=== PATIENT | male | born 1985 | race African-American/Black ===

== ENCOUNTER 2023-06-19 23:04 | Emergency (ER) | payer OTHER, SELFPAY ==
[2023-06-19 23:05] VITALS: BP 156/90; PULSE 99; RESP 16; TEMP 37.1; O2SAT 99; BMI 43.3
--- NOTE | 2023-06-20 00:20 | EX.ED.VIS.UR ---
HPI HPI - URI History of Present Illness Chief Complaint: Cold Sx Informant: patient Associated Symptoms Associated Symptoms: Positive for Nasal Congestion, Headache, Nausea, Diarrhea and Nonproductive cough Narrative Narrative: 3 days is of fevers, chills, malaise, myalgias, headache, congestion, cough, with a positive COVID test at home. No charles dyspnea. Never been vaccinated, first time he has had COVID that he knows of. Lives at home with family. Healthy otherwise. Takes no prescription medications. ROS ROS ED Constitutional Constitutional ED: Reports body ache(s), chills, fatigue, fever(s), headache(s) and malaise Eyes Eyes: Denies change in vision or diplopia ENT ENT ED: Denies rhinorrhea or sore throat Cardiovascular Cardiovascular: Denies chest pain or palpitations Respiratory/Chest Respiratory/Chest: Reports cough; Denies dyspnea or dyspnea on exertion Gastrointestinal Gastrointestinal: Reports diarrhea and nausea; Denies abdominal pain or vomiting Genitourinary Genitourinary ED: Denies dysuria or hematuria Musculoskeletal Musculoskeletal: Denies back pain or neck pain Integumentary Denies abscess or rash Neurologic Neurologic: Reports headache(s); Denies paresthesias or weakness Psychiatric Psychiatric: Denies anxiety or suicidal thoughts PFSH PFS Medical History Chronic neck and back pain Fatigue Knee pain Limb weakness Lumbar strain Right shoulder strain Shortness of breath Shoulder pain Strain of right trapezius muscle Home Medications nirmatrelvir 300 mg (150 mg x2)-ritonavir 100 mg tablet,dose pack (Paxlovid) See Rx Instructions PO .COMPLEX #30 tabs 06/20/23 [Rx Last Taken Unknown] Allergy/AdvReac Type Severity Reaction Status Date / Time Penicillins Allergy Mild Swelling Verified 06/19/23 23:08 Surgical History H/O knee surgery Social History Smoking Status: Current every day smoker tobacco type: cigarettes alcohol intake: never EXAM Physical Exam Const Vital Signs: 06/19/23 23:05 06/19/23 23:27 Temperature 98.8 F Temperature Source Temporal Pulse Rate 99 Respiratory Rate 16 Respiratory Effort Short of Breath Respiratory Pattern Normal Blood Pressure 156/90 H Blood Pressure Mean 112 Pulse Ox 99 Oxygen Delivery Method Room Air Positive well nourished, well developed and obese Constitutional Narrative: Well-appearing, no distress General Appearance ED: well developed and NAD Nutritional Appearance: obese HEENT Reports moist mucous membranes normocephalic and atraumatic Eyes PERRL and EOMs intact bilaterally Neck full ROM and supple Resp normal respiratory effort and clear to auscultation bilaterally Cardio regular rate, regular rhythm and no murmurs Rate: Negative for tachycardic GI non-tender and non-distended Auscultation: normoactive bowel sounds Palpation: soft Back/Spine no CVA tenderness General Back: other FROM Extremity normal to inspection and no calf tenderness General Extremety ED: Negative for edema, pulses abnormal or tenderness General Extremity: Negative for edema or pulses abnormal Neuro oriented x3, CN's II-XII intact bilaterally and no sensory deficits noted Sensorium / Orientation: awake and alert Motor Exam: strength 5/5 throughout Skin no rashes or lesions noted and no wounds MDM MDM MDM Narrative Medical decision making narrative: Unvaccinated obese patient, qualifies for antivirals due to the latter. He is amenable to this. Pulse ox and other vital signs are unremarkable at this time. Discharge Plan Triage Chief Complaint: Cold Sx ED Provider: Avinash Olmos Dx/Rx/DC Orders Clinical Impression: COVID-19 Instructions: Coronavirus Disease 2019 (COVID-19): Caring for Yourself or Others Prescriptions: New Paxlovid 300 mg (150 mg x 2)-100 mg tablets,dose pack See Rx Instructions .ROUTE .COMPLEX Qty: 30 0RF Rx Instructions: take TWO 150 mg tablets of nirmatrelvir with ONE 100 mg tablet of ritonavir twice daily for 5 days Primary Care Provider: NOT,DEFINED Referrals: Doctor,Your [Non-Staff] - As Needed Activity Restrictions/Additional Instructions: Try to get a home portable pulse oximeter and closely watch your oxygen levels periodically. If you stay below 90% for more than a minute or so, and/or you are feeling like your breathing is getting worse, return to the emergency department for further evaluation. Currently, CDC recommendations state that you should stay home through day 5 of symptoms, then as long as symptoms are improving, if you need to go to work or somewhere else you may for days 6-10 as long as you are wearing a mask the entire time. If you are feeling better after day 10 you may resume life is normal. Disposition Disposition: Home, Self Care
== END 2023-06-20 01:04 | disposition home or self-care (01) ==
LOC: ED 06-20 00:26
PROVIDERS: Emergency Provider Emergency Medicine; Visit Provider Emergency Medicine
DX: U07.1 COVID-19 (principal); F17.210 Nicotine dependence, cigarettes, uncomplicated
CPT/HCPCS: 87811; 99282

== ENCOUNTER 2023-10-21 19:14 | Emergency (ER) | payer OTHER, SELFPAY ==
[2023-10-21 19:15] VITALS: BP 192/99; PULSE 85; RESP 16; TEMP 36.4; O2SAT 99; BMI 43.9
--- OUTSIDE RECORDS SUMMARY | 2023-10-21 20:41 | XMS RPT_ITS | CCD ---
Author Name Unknown Address [address] [place] [address] Organization [facility] Care Team Providers Care Marketing Automation Analyst Name Role Phone PHYSICIAN, NONE Primary Care Physician Unavailab WOO Beth DO Attending Unavailable PHYSICIAN, NONE Primary Care Unavailable Allergies Allergy Classification Reported Allergen(s) Allergy Type Date of Onset Reaction(s) Facility (1 source) Penicillin; Translations: [penicillin] Drug Allergy [facility] Medications Current Medications Medication Drug Class(es) Dates Sig (Normalized) Sig (Original) cyclobenzaprine hydrochloride 10 mg oral tablet (1 source) Muscle Relaxant Start: 03-18-2023 End: 03-25-2023 cyclobenzaprine 10 mg oral tablet Dose : 10 mg = 1 tab(s), Oral, TID, X 7 day(s), # 21 tab(s), 0 Refill(s), 03/25/23 14:04:00 EDT Start Date: 03/18/23 Stop Date: 03/25/23 Status: Ordered Vital Signs Date Time Vital Sign Value Performing Clinician Jodi hall 03-18-2023 13:38-0400 Body height 198.1 cm OWO SVXR [facility] 03-18-2023 13:38-0400 Body temperature 98.06 [degF] WOO SVXR [facility] 03-18-2023 13:38-0400 Body weight 180.5 kg WOO SVXR [facility] 03-18-2023 13:38-0400 Diastolic Blood Pressure Non-Invasive 90 1 WOO SVXR [facility] 03-18-2023 13:38-0400 Heart rate 92 /min WOO WARNER DO [facility] 03-18-2023 13:38-0400 Respiratory rate 18 /min WOO WARNER DO [facility] 03-18-2023 13:38-0400 Systolic Blood Pressure Non-Invasive 151 1 WOO WARNER DO [facility] Encounters Encounter Date Encounter Type Care Provider Facility Start: 03-18-2023 End: 03-18-2023 Emergency department patient visit WOO WARNER DO Facility:B Start: 03-18-2023 End: 03-18-2023 Emergency department patient visit WOO WARNER DO [facility] Payers Date Payer Category Payer Unknown [id number] 1985 Unknown [id number] Social History Date Type Detail Facility Tobacco smoking status No Smoking Status Entered [facility] Sex Assigned At Male [facility] Functional Status Date Assessment Result Facility 03-18-2023 Functional Status Safety level maintained [facility] Mental Status Date Assessment Result Facility 03-18-2023 Mental Status Oriented x 4 [facility] Discharge instructions 03-18-2023 Note Date & Type Note Facility 03-18-2023 Hospital Discharg e instructions Patient Education 03/18/2023 14:04:03 Back and Neck Pain, General General Neck and Back Pain Both neck and back pain are usually caused by injury to the muscles or ligaments of the spine. Sometimes the disks that separate each bone of the spine may cause pain by pressing on a nearby nerve. Back and neck pain may appear after a sudden twisting or bending force (such as in a car accident), or sometimes after a simple awkward movement. In either case, muscle spasm is often present and adds to the pain. Acute neck and back pain usually gets better in 1 to 2 weeks. Pain related to disk disease, arthritis in the spinal joints or spinal stenosis (narrowing of the spinal canal) can become chronic and last for months or years. Back and neck pain are common problems. Most people feel better in 1 or 2 weeks, and most of the rest in 1 to 2 months. Most people can remain active. People have and describe pain differently. Pain can be sharp, stabbing, shooting, aching, cramping, or burning Movement, standing, bending, lifting, sitting, or walking may worsen the pain Pain can be localized to one spot or area, or it can be more generalized Pain can spread or radiate upwards, downwards, to the front, or go down your arms Muscle spasm may occur. Most of the time mechanical problems with the muscles or spine cause the pain. it is usually caused by an injury, whether known or not, to the muscles or ligaments. While illnesses can cause back pain, it is usually not caused by a serious illness. Pain is usually related to physical activity, whether sports, exercise, work, or normal activity. Sometimes it can occur without an identifiable cause. This can happen simply by stretching or moving wrong, without noting pain at the time. Other causes include: Overexertion, lifting, pushing, pulling incorrectly or too aggressively. Sudden twisting, bending or stretching from an accident (car or fall), or accidental movement. Poor posture Poor conditioning, lack of regular exercise Spinal disc disease or arthritis Stress , or illness like appendicitis, bladder or kidney infection, pelvic infections Home care For neck pain: Use a comfortable pillow that supports the head and keeps the spine in a neutral position. The position of the head should not be tilted forward or backward. When in bed, try to find a position of comfort. A firm mattress is best. Try lying flat on your back with pillows under your knees. You can also try lying on your side with your knees bent up towards your chest and a pillow between your knees. At first, do not try to stretch out the sore spots. If there is a strain, it is not like the good soreness you get after exercising without an injury. In this case, stretching may make it worse. Don't sit for long periods, as in long car rides or other travel. This puts more stress on the lower back than standing or walking. During the first 24 to 72 hours after an injury, apply an ice pack to the painful area for 20 minutes and then remove it for 20 minutes over a period of 60 to 90 minutes or several times a day. You can alternate ice and heat therapies. Talk with your healthcare provider about the best treatment for your back or neck pain. As a safety precaution, do not use a heating pad at bedtime. Sleeping with a heating pad can lead to skin ellington or tissue damage. Therapeutic massage can help relax the back and neck muscles without stretching them. Be aware of safe lifting methods and do not lift anything over 15 pounds until all the pain is gone. Medicines Talk to your healthcare provider before using medicine, especially if you have other medical problems or are taking other medicines. You may use gyfg-lnr-kcahqda medicine to control pain, unless another pain medicine was prescribed. If you have chronic conditions like diabetes, liver or kidney disease, stomach ulcers, gastrointestinal bleeding, or are taking blood thinner medicines. Be careful if you are given pain medicines, narcotics, or medicine for muscle spasm. They can cause drowsiness, and can affect your coordination, reflexes, and judgment. Do not drive or operate heavy machinery. Follow-up care Follow up with your healthcare provider, or as advised. Physical therapy or further tests may be needed. If X-rays were taken, you will be notified of any new findings that may affect your care. Call 911 Call 911 if any of the following occur: Trouble breathing Confusion Very drowsy or trouble awakening Fainting or loss of consciousness Rapid or very slow heart rate Loss of bowel or bladder control When to seek medical advice Call your healthcare provider right away if any of these occur: Pain becomes worse or spreads into your arms or legs Weakness, numbness or pain in one or both arms or legs Numbness in the groin area Difficulty walking Fever of 100.4 F (38 C) or higher, or as directed by your healthcare provider [phone] [employer]. [address] [place] [address]. All rights reserved. This information is not intended as a substitute for professional medical care. Always follow your healthcare professional's instructions. 03/18/2023 14:04:02 Back Care Tips Back Care Tips Caring for your back These are things you can do to prevent a recurrence of acute back pain and to reduce symptoms from chronic back pain: Maintain a healthy weight. If you are overweight, losing weight will help most types of back pain. Exercise is an important part of recovery from most types of back pain. The muscles behind and in front of the spine support the back. This means strengthening both the back muscles and the abdominal muscles will provide better support for your spine. Swimming and brisk walking are good overall exercises to improve your fitness level. Practice safe lifting methods (below). Practice good posture when sitting, standing and walking. Avoid prolonged sitting. This puts more stress on the lower back than standing or walking. Wear quality shoes with sufficient arch support. Foot and ankle alignment can affect back symptoms. Women should avoid wearing high heels. Therapeutic massage can help relax the back muscles without stretching them. During the first 24 to 72 hours after an acute injury or flare-up of chronic back pain, apply an ice pack to the painful area for 20 minutes and then remove it for 20 minutes, over a period of 60 to 90 minutes, or several times a day. As a safety precaution, do not use a heating pad at bedtime. Sleeping on a heating pad can lead to skin ellington or tissue damage. You can alternate ice and heat therapies. Medicines Talk to your healthcare provider before using medicines, especially if you have other medical problems or are taking other medicines. You may use acetaminophen or ibuprofen to control pain, unless your healthcare provider prescribed other pain medicine. If you have chronic conditions like diabetes, liver or kidney disease, stomach ulcers, or gastrointestinal bleeding, or are taking blood thinners, talk with your healthcare provider before taking any medicines. Be careful if you are given prescription pain medicines, narcotics, or medicine for muscle spasm. They can cause drowsiness, affect your coordination, reflexes, and judgment. Do not drive or operate heavy machinery while taking these types of medicines. Take prescription pain medicine only as prescribed by your healthcare provider. Lumbar stretch Here is a simple stretching exercise that will help relax muscle spasm and keep your back more limber. If exercise makes your back pain worse, don t do it. Lie on your back with your knees bent and both feet on the ground. Slowly raise your left knee to your chest as you flatten your lower back against the floor. Hold for 5 seconds. Relax and repeat the exercise with your right knee. Do 10 of these exercises for each leg. Safe lifting method Don t bend over at the waist to lift an object off the floor. Instead, bend your knees and hips in a squat. Keep your back and head upright Hold the object close to your body, directly in front of you. Straighten your legs to lift the object. Lower the object to the floor in the reverse fashion. If you must slide something across the floor, push it. Posture tips Sitting Sit in chairs with straight backs or low-back support. Keep your knees lower than your hips, with your feet flat on the floor. When driving, sit up straight. Adjust the seat forward so you are not leaning toward the steering wheel. A small pillow or rolled towel behind your lower back may help if you are driving long distances. Standing When standing for long periods, shift most of your weight to one leg at a time. Alternate legs every few minutes. Sleeping The best way to sleep is on your side with your knees bent. Put a low pillow under your head to support your neck in a neutral spine position. Avoid thick pillows that bend your neck to one side. Put a pillow between your legs to further relax your lower back. If you sleep on your back, put pillows under your knees to support your legs in a slightly flexed position. Use a firm mattress. If your mattress sags, replace it, or use a 1/2-inch plywood board under the mattress to add support. Follow-up care Follow up with your healthcare provider, or as advised. If X-rays, a CT scan or an MRI scan were taken, they will be reviewed by a radiologist. You will be notified of any new findings that may affect your care. Call 911 Call 911 if any of the following occur: Trouble breathing Confusion Very drowsy Fainting or loss of consciousness Rapid or very slow heart rate Loss of bowel or bladder control When to seek medical advice Call your healthcare provider right away if any of the following occur: Pain becomes worse or spreads to your arms or legs Weakness or numbness in one or both arms or legs Numbness in the groin area [phone] [employer]. [address] [place] [address], [place] [address]. All rights reserved. This information is not intended as a substitute for professional medical care. Always follow your healthcare professional's instructions. Follow Up Care 03/18/2023 13:36:33 With:Call Physician Referral Address:Unknown When:2-4 days [facility] Mateuscla[facility] Patel Clinical Note 03-18-2023 Note Date & Type Note Facility 03-18-2023 Note Discharge Instructions Thank you for allowing [facility] to assist you with your healthcare needs. The following is important discharge information regarding your hospital visit. Diagnosis from Today's Visit Back pain Shoulder pain-swelling right What to Do Next Instructions from Your Care Team Follow-up with your PCP in the next 2 to 4 days. You have been prescribed Flexeril today. Do not operate any heavy machinery while under the influence of this medication. Please return to the emergency department if you start having worsening back pain or shoulder pain. Please return to the emergency department if you experience a traumatic injury. Please return to the emergency department if you start experiencing high fevers. Discharge Return to Work, School, or Sports (Return to Work, School, or Sports) - Ordered -- 03/20/23, May return to: work, 03/18/23 14:04:00 EDT Post Acute Orders No qualifying data available. You Need to Schedule the Following Appointments Follow Up with Call Physician Referral When Within 2-4 days Allergies penicillin Medications Please ask your primary doctor or pharmacist before taking any other medication not listed, including over the counter drugs, herbal medications, vitamins and or supplements as they may interact with your home medications. What How Much When Instructions Last Dose New cyclobenzaprine (cyclobenzaprine 10 mg oral tablet) 1 tab(s) by mouth Three (3) times a day Duration: 7 Days Printed Prescription Please take this list to your next doctor s visit. Bring all medications you take, including over the counter medications, herbals and other supplements with you to your doctor s visit. Patients and families are reminded to discard old lists and to update any records with all medication providers or retail pharmacies. Medication Leaflets cyclobenzaprine (aamir garnett) Amrix, Comfort Pac with Cyclobenzaprine, Fexmid What is the most important information I should know about cyclobenzaprine? You should not use cyclobenzaprine if you have a thyroid disorder, heart block, congestive heart failure, a heart rhythm disorder, or you have recently had a heart attack. Do not use cyclobenzaprine if you have taken an MAO inhibitor in the past 14 days, such as isocarboxazid, linezolid, phenelzine, rasagiline, selegiline, or tranylcypromine. What is cyclobenzaprine? Cyclobenzaprine is a muscle relaxant. It works by blocking nerve impulses (or pain sensations) that are sent to your brain. Cyclobenzaprine is used together with rest and physical therapy to relieve muscle spasms caused by painful conditions such as an injury. Cyclobenzaprine may also be used for purposes not listed in this medication guide. What should I discuss with my healthcare provider before taking cyclobenzaprine? You should not use cyclobenzaprine if you are allergic to it, or if you have: a thyroid disorder; heart block, heart rhythm disorder, congestive heart failure; or if you have recently had a heart attack. Cyclobenzaprine is not approved for use by anyone younger than 15 years old. Do not use cyclobenzaprine if you have taken an MAO inhibitor in the past 14 days. A dangerous drug interaction could occur. MAO inhibitors include isocarboxazid, linezolid, phenelzine, rasagiline, selegiline, and tranylcypromine. Some medicines can interact with cyclobenzaprine and cause a serious condition called serotonin syndrome. Be sure your doctor knows if you also take stimulant medicine, opioid medicine, herbal products, or medicine for depression, mental illness, Parkinson's disease, migraine headaches, serious infections, or prevention of nausea and vomiting. Ask your doctor before making any changes in how or when you take your medications. Tell your doctor if you have ever had: liver disease; glaucoma; enlarged prostate; or problems with urination. It is not known whether this medicine will harm an unborn baby. Tell your doctor if you are or plan to become . It may not be safe to breast-feed while using this medicine. Ask your doctor about any risk. Older adults may be more sensitive to the effects of this medicine. How should I take cyclobenzaprine? Follow all directions on your prescription label and read all medication guides or instruction sheets. Your doctor may occasionally change your dose. Use the medicine exactly as directed. Cyclobenzaprine is usually taken once daily for only 2 or 3 weeks. Follow your doctor's dosing instructions very carefully. Swallow the capsule whole and do not crush, chew, break, or open it. Take the medicine at the same time each day. Call your doctor if your symptoms do not improve after 3 weeks, or if they get worse. Store at room temperature away from moisture, heat, and light. What happens if I miss a dose? Take the medicine as soon as you can, but skip the missed dose if it is almost time for your next dose. Do not take two doses at one time. What happens if I overdose? Seek emergency medical attention or call the Poison Help line at . An overdose of cyclobenzaprine can be fatal. Overdose symptoms may include severe drowsiness, vomiting, fast heartbeats, tremors, agitation, or hallucinations. What should I avoid while taking cyclobenzaprine? Avoid driving or hazardous activity until you know how this medicine will affect you. Your reactions could be impaired. Avoid drinking alcohol. Dangerous side effects could occur. What are the possible side effects of cyclobenzaprine? Get emergency medical help if you have signs of an allergic reaction: hives; difficult breathing; swelling of your face, lips, tongue, or throat. Stop using cyclobenzaprine and call your doctor at once if you have: fast or irregular heartbeats; chest pain or pressure, pain spreading to your jaw or shoulder; or sudden numbness or weakness (especially on one side of the body), slurred speech, balance problems. Seek medical attention right away if you have symptoms of serotonin syndrome, such as: agitation, hallucinations, fever, sweating, shivering, fast heart rate, muscle stiffness, twitching, loss of coordination, nausea, vomiting, or diarrhea. Serious side effects may be more likely in older adults. Common side effects may include: drowsiness, tiredness; headache, dizziness; dry mouth; or upset stomach, nausea, constipation. This is not a complete list of side effects and others may occur. Call your doctor for medical advice about side effects. You may report side effects to FDA at 0-501-VMK-8385. What other drugs will affect cyclobenzaprine? Using cyclobenzaprine with other drugs that make you drowsy can worsen this effect. Ask your doctor before using opioid medication, a sleeping pill, a muscle relaxer, or medicine for anxiety or seizures. Tell your doctor about all your other medicines, especially: bupropion (Zyban, for smoking cessation); meperidine; tramadol; verapamil; cold or allergy medicine that contains an antihistamine (Benadryl and others); medicine to treat Parkinson's disease; medicine to treat excess stomach acid, stomach ulcer, motion sickness, or irritable bowel syndrome; medicine to treat overactive bladder; or bronchodilator asthma medication. This list is not complete. Other drugs may affect cyclobenzaprine, including prescription and ltsu-hqm-ugxzpwi medicines, vitamins, and herbal products. Not all possible drug interactions are listed here. Where can I get more information? Your pharmacist can provide more information about cyclobenzaprine. Remember, keep this and all other medicines out of the reach of children, never share your medicines with others, and use this medication only for the indication prescribed. Every effort has been made to ensure that the information provided by [employer]. ('[employer]') is accurate, up-to-date, and complete, but no guarantee is made to that effect. Drug information contained herein may be time sensitive. [employer] information has been compiled for use by healthcare practitioners and consumers in the [place] and therefore [employer] does not warrant that uses outside of the [place] are appropriate, unless specifically indicated otherwise. [employer]'s drug information does not endorse drugs, diagnose patients or recommend therapy. 911 [employer]ss drug information is an informational resource designed to assist licensed healthcare practitioners in caring for their patients and/or to serve consumers viewing this service as a supplement to, and not a substitute for, the expertise, skill, knowledge and judgment of healthcare practitioners. The absence of a warning for a given drug or drug combination in no way should be construed to indicate that the drug or drug combination is safe, effective or appropriate for any given patient. [employer] does not assume any responsibility for any aspect of healthcare administered with the aid of information [employer] provides. The information contained herein is not intended to cover all possible uses, directions, precautions, warnings, drug interactions, allergic reactions, or adverse effects. If you have questions about the drugs you are taking, check with your doctor, nurse or pharmacist. Copyright 2104-0879 [employer]. Version: 5.01. Revision Date: 07/08/2018. Education Materials General Neck and Back Pain Both neck and back pain are usually caused by injury to the muscles or ligaments of the spine. Sometimes the disks that separate each bone of the spine may cause pain by pressing on a nearby nerve. Back and neck pain may appear after a sudden twisting or bending force (such as in a car accident), or sometimes after a simple awkward movement. In either case, muscle spasm is often present and adds to the pain. Acute neck and back pain usually gets better in 1 to 2 weeks. Pain related to disk disease, arthritis in the spinal joints or spinal stenosis (narrowing of the spinal canal) can become chronic and last for months or years. Back and neck pain are common problems. Most people feel better in 1 or 2 weeks, and most of the rest in 1 to 2 months. Most people can remain active. People have and describe pain differently. Pain can be sharp, stabbing, shooting, aching, cramping, or burning Movement, standing, bending, lifting, sitting, or walking may worsen the pain Pain can be localized to one spot or area, or it can be more generalized Pain can spread or radiate upwards, downwards, to the front, or go down your arms Muscle spasm may occur. Most of the time mechanical problems with the muscles or spine cause the pain. it is usually caused by an injury, whether known or not, to the muscles or ligaments. While illnesses can cause back pain, it is usually not caused by a serious illness. Pain is usually related to physical activity, whether sports, exercise, work, or normal activity. Sometimes it can occur without an identifiable cause. This can happen simply by stretching or moving wrong, without noting pain at the time. Other causes include: Overexertion, lifting, pushing, pulling incorrectly or too aggressively. Sudden twisting, bending or stretching from an accident (car or fall), or accidental movement. Poor posture Poor conditioning, lack of regular exercise Spinal disc disease or arthritis Stress , or illness like appendicitis, bladder or kidney infection, pelvic infections Home care For neck pain: Use a comfortable pillow that supports the head and keeps the spine in a neutral position. The position of the head should not be tilted forward or backward. When in bed, try to find a position of comfort. A firm mattress is best. Try lying flat on your back with pillows under your knees. You can also try lying on your side with your knees bent up towards your chest and a pillow between your knees. At first, do not try to stretch out the sore spots. If there is a strain, it is not like the good soreness you get after exercising without an injury. In this case, stretching may make it worse. Don't sit for long periods, as in long car rides or other travel. This puts more stress on the lower back than standing or walking. During the first 24 to 72 hours after an injury, apply an ice pack to the painful area for 20 minutes and then remove it for 20 minutes over a period of 60 to 90 minutes or several times a day. You can alternate ice and heat therapies. Talk with your healthcare provider about the best treatment for your back or neck pain. As a safety precaution, do not use a heating pad at bedtime. Sleeping with a heating pad can lead to skin ellington or tissue damage. Therapeutic massage can help relax the back and neck muscles without stretching them. Be aware of safe lifting methods and do not lift anything over 15 pounds until all the pain is gone. Medicines Talk to your healthcare provider before using medicine, especially if you have other medical problems or are taking other medicines. You may use xwuj-olg-djvzhvc medicine to control pain, unless another pain medicine was prescribed. If you have chronic conditions like diabetes, liver or kidney disease, stomach ulcers, gastrointestinal bleeding, or are taking blood thinner medicines. Be careful if you are given pain medicines, narcotics, or medicine for muscle spasm. They can cause drowsiness, and can affect your coordination, reflexes, and judgment. Do not drive or operate heavy machinery. Follow-up care Follow up with your healthcare provider, or as advised. Physical therapy or further tests may be needed. If X-rays were taken, you will be notified of any new findings that may affect your care. Call 911 Call 911 if any of the following occur: Trouble breathing Confusion Very drowsy or trouble awakening Fainting or loss of consciousness Rapid or very slow heart rate Loss of bowel or bladder control When to seek medical advice Call your healthcare provider right away if any of these occur: Pain becomes worse or spreads into your arms or legs Weakness, numbness or pain in one or both arms or legs Numbness in the groin area Difficulty walking Fever of 100.4 F (38 C) or higher, or as directed by your healthcare provider [id number] [employer]. [address] [place] [address], [place] [address]. All rights reserved. This information is not intended as a substitute for professional medical care. Always follow your healthcare professional's instructions. Back Care Tips Caring for your back These are things you can do to prevent a recurrence of acute back pain and to reduce symptoms from chronic back pain: Maintain a healthy weight. If you are overweight, losing weight will help most types of back pain. Exercise is an important part of recovery from most types of back pain. The muscles behind and in front of the spine support the back. This means strengthening both the back muscles and the abdominal muscles will provide better support for your spine. Swimming and brisk walking are good overall exercises to improve your fitness level. Practice safe lifting methods (below). Practice good posture when sitting, standing and walking. Avoid prolonged sitting. This puts more stress on the lower back than standing or walking. Wear quality shoes with sufficient arch support. Foot and ankle alignment can affect back symptoms. Women should avoid wearing high heels. Therapeutic massage can help relax the back muscles without stretching them. During the first 24 to 72 hours after an acute injury or flare-up of chronic back pain, apply an ice pack to the painful area for 20 minutes and then remove it for 20 minutes, over a period of 60 to 90 minutes, or several times a day. As a safety precaution, do not use a heating pad at bedtime. Sleeping on a heating pad can lead to skin ellington or tissue damage. You can alternate ice and heat therapies. Medicines Talk to your healthcare provider before using medicines, especially if you have other medical problems or are taking other medicines. You may use acetaminophen or ibuprofen to control pain, unless your healthcare provider prescribed other pain medicine. If you have chronic conditions like diabetes, liver or kidney disease, stomach ulcers, or gastrointestinal bleeding, or are taking blood thinners, talk with your healthcare provider before taking any medicines. Be careful if you are given prescription pain medicines, narcotics, or medicine for muscle spasm. They can cause drowsiness, affect your coordination, reflexes, and judgment. Do not drive or operate heavy machinery while taking these types of medicines. Take prescription pain medicine only as prescribed by your healthcare provider. Lumbar stretch Here is a simple stretching exercise that will help relax muscle spasm and keep your back more limber. If exercise makes your back pain worse, don t do it. Lie on your back with your knees bent and both feet on the ground. Slowly raise your left knee to your chest as you flatten your lower back against the floor. Hold for 5 seconds. Relax and repeat the exercise with your right knee. Do 10 of these exercises for each leg. Safe lifting method Don t bend over at the waist to lift an object off the floor. Instead, bend your knees and hips in a squat. Keep your back and head upright Hold the object close to your body, directly in front of you. Straighten your legs to lift the object. Lower the object to the floor in the reverse fashion. If you must slide something across the floor, push it. Posture tips Sitting Sit in chairs with straight backs or low-back support. Keep your knees lower than your hips, with your feet flat on the floor. When driving, sit up straight. Adjust the seat forward so you are not leaning toward the steering wheel. A small pillow or rolled towel behind your lower back may help if you are driving long distances. Standing When standing for long periods, shift most of your weight to one leg at a time. Alternate legs every few minutes. Sleeping The best way to sleep is on your side with your knees bent. Put a low pillow under your head to support your neck in a neutral spine position. Avoid thick pillows that bend your neck to one side. Put a pillow between your legs to further relax your lower back. If you sleep on your back, put pillows under your knees to support your legs in a slightly flexed position. Use a firm mattress. If your mattress sags, replace it, or use a 1/2-inch plywood board under the mattress to add support. Follow-up care Follow up with your healthcare provider, or as advised. If X-rays, a CT scan or an MRI scan were taken, they will be reviewed by a radiologist. You will be notified of any new findings that may affect your care. Call 911 Call 911 if any of the following occur: Trouble breathing Confusion Very drowsy Fainting or loss of consciousness Rapid or very slow heart rate Loss of bowel or bladder control When to seek medical advice Call your healthcare provider right away if any of the following occur: Pain becomes worse or spreads to your arms or legs Weakness or numbness in one or both arms or legs Numbness in the groin area [id number] [employer] [address] [place] [address], [place] [address]. All rights reserved. This information is not intended as a substitute for professional medical care. Always follow your healthcare professional's instructions. Additional Information VACCINATE! IT SAVES LIVES! Members of the community who have not yet received the COVID-19 vaccine and would like to receive it can visit one of [facility] vaccine clinics. There are many vaccine clinic locations within the [facility]. For locations and available times, please visit www.gettheshot.coronavirus.[place].gov/. It is important to note that some COVID mobile vaccine clinics are held outdoors and may be canceled in rainy or stormy conditions. To learn more about pediatric vaccinations (ages 5-11), we invite you to visit the [facility] webpage. [email or web address]/[email or web address]-Mfbdmrfwqfc-Frequently-[email or web address] -Questions.html To learn more about the COVID-19 vaccine, we invite you to visit the CDC website for a list of frequently asked questions. https://www.cdc.gov/coronavirus/2019-n cov/vaccines/faq.html [facility] Patient Portal Access Instructions: Stay connected with your healthcare team and access your personal medical information anytime with the [facility] Patient Portal. If you would like a full copy of your medical records please contact the [facility] Medical Records Department Friday through Friday between 8a.m. and 4:30p.m. Please follow the directions below to access the portal: 1.Access the email account you provided upon registration to the [facility].2.Look for an invitation email from [facility].3.Open the email and access the invitation link: Accept Invitation to [facility].Fill in the required finch to create your account. Sign into [email or web address] with your username and password that you created in the above steps to stay up to date. You can then view a summary of results, a summary of your visits, and the ability to download your summaries to your computer or send the information securely to a physician. Remember that your healthcare information is confidential, so carefully consider who you will allow to register on the [facility] Patient Portal for access to your information. You can also access the [employer] Patient Portal on the [employer]. Simply click on Health Records under Health Data and then click on the [employer] logo. HOW TO SAFELY DISPOSE OF PRESCRIPTION MEDICATIONS Please use one of the following methods to safely dispose of your unused medications. 1.Use a drug disposal kit: the drug disposal pouch allows you to safely discard your old and unused drugs. Ask your nurse to give you one when you are discharged.2.Visit a local take-back location: Many local pharmacies and police departments have programs that collect old and unwanted prescription drugs. Call your local pharmacy or go to http://ip.access.ToutApp/3U7Jl1s to find one close to you.3.Make use of household items: Use cat litter or old coffee grounds to dispose medications if other options are not available. Mix your drugs with these household products, seal them in an airtight container and throw it into the garbage. Call [facility]: [phone] to be sure your drugs can be disposed of in this way. Some medicines may require a different approach.4.Never flush your medications down the toilet. IF YOU HAVE BEEN PRESCRIBED AN OPIOIDS FOR PAIN If you have been prescribed an opioid (such as hydrocodone, oxycodone or morphine), it is critical to understand the possible side effects and risks of opioid pain medications. Even when taken as directed, opioids can have several side effects including: Tolerance, meaning you might need to take more of a medication for the same pain relief. Nausea, vomiting and/or constipation. Sleepiness, dizziness, dry mouth, confusion, depression or itching. Physical dependence, meaning you have withdrawal symptoms when a medication is stopped ? this can develop within a few days. KNOW YOUR RESPONSIBILITIES It is important to know exactly how much and how often to take the opioid pain medications you are prescribed. Never take opioids in higher amounts or more often than prescribed. Do not combine opioids with alcohol or other drugs that cause drowsiness, such as benzodiazepines, also known as benzos, including diazepam and alprazolam, muscle relaxants or sleep aids. Never sell or share prescription opioids. This is illegal. Store opioids in a secure place and out of reach of others (including children, family, friends and visitors). The last page(s) of this document has been signed and retained as a CHART COPY Signatures Patient Education Materials Back and Neck Pain, General Back Care Tips Medication Leaflets cyclobenzaprine My discharge plan and instructions have been reviewed and explained to me and I,MANDA DENIS understand my current condition and have read and understand these discharge instructions. I have received a written copy of the plan/instructions. If I have questions, I am aware that I should contact my doctor. Patient/Supervisor Sample Signature: _ Date/Time: Relationship to Patient: Witness Name/Signature: Date/Time: [facility] Evaluation + Plan note Note Date & Type Note Facility Evaluation + Plan note No data available for this section [facility] Summary Purpose Family History No Family History Records Found Advance Directives No Advanced Directives Records Found Additional Source Comments Patient Care team informatio n (unrecognized section and content) Care Team Personnel Name: PHYSICIAN, NONE Position: Physician Member Role: Primary Care Physician Name: GENNARO JOSE MD Position: Resident Member Role: Resident Address: Address: [address] [place] [address] ED Resident [address] Name: Jacqui Roque RN Position: AO RN Member Role: RN Name: WOO WARNER DO Position: ED Physician Member Role: Attending Physician Address: Address: [address] [place] [address] [employer] [address] (unrecognized sect ion and content) No Status Records Found INFORMATION SOURCE (unrecogn ized section and content) FOR RECORDS PERTAINING TO PATIENTS WHO ARE OR HAVE BEEN ENROLLED IN A CHEMICAL DEPENDENCY/SUBSTANCEABUSE PROGRAM, SOME INFORMATION MAY BE OMITTED. This clinical summary was aggregated from multiple sources. Caution should be exercised in using it in the provision of clinical care. This summary normalizes information from multiple sources, and as a consequence, information in this document may materially change the coding, format and clinical context of patient data. In addition, data may be omitted in some cases. CLINICAL DECISIONS SHOULD BE BASED ON THE PRIMARY CLINICAL RECORDS. [employer] [facility]. provides no warranty or guarantee of the accuracy or completeness of information in this document.
--- NOTE | 2023-10-21 20:43 | EX.ED.DYSGE1 ---
HPI <YESI Zhang - Last Filed: 10/21/23 21:04> History of Present Illness Chief Complaint: Ear Problem Narrative Narrative: Patient presenting due to right ear pain that started 3 days ago. He reports that the pain is sharp. He denies any injury to his ear. He reports that he had a cough last week but his symptoms have resolved. He denies any fevers or chills. PFSH <YESI Zhang - Last Filed: 10/21/23 21:04> PFSH Medical History Chronic neck and back pain Fatigue Knee pain Limb weakness Lumbar strain Right shoulder strain Shortness of breath Shoulder pain Strain of right trapezius muscle Home Medications nirmatrelvir 300 mg (150 mg x2)-ritonavir 100 mg tablet,dose pack (Paxlovid) See Rx Instructions PO .COMPLEX #30 tabs 06/20/23 [Rx Last Taken Unknown] Allergy/AdvReac Type Severity Reaction Status Date / Time Penicillins Allergy Mild Swelling Verified 10/21/23 19:16 Surgical History H/O knee surgery Social History Smoking Status: Current every day smoker tobacco type: cigarettes alcohol intake: never ROS <YESI Zhang - Last Filed: 10/21/23 21:04> ROS ED Constitutional Constitutional ED: Denies chills or fever(s) ENT ENT ED: Reports ear pain right; Denies rhinorrhea or sore throat Cardiovascular Cardiovascular: Denies chest pain Respiratory/Chest Respiratory/Chest: Denies cough or dyspnea Gastrointestinal Gastrointestinal: Denies abdominal pain, nausea or vomiting Musculoskeletal Musculoskeletal: Denies arthralgias or myalgias Integumentary Denies rash Neurologic Neurologic: Denies weakness EXAM <YESI Zhang - Last Filed: 10/21/23 21:04> Physical Exam Const Vital Signs: 10/21/23 19:15 Temperature 97.5 F L Temperature Source Temporal Pulse Rate 85 Respiratory Rate 16 Blood Pressure 192/99 H Blood Pressure Mean 130 Pulse Ox 99 Oxygen Delivery Method Room Air Positive well nourished, well developed and no apparent distress General Appearance ED: well developed HEENT Reports normocephalic, head/scalp atraumatic and TM's clear HEENT Narrative: No mastoid tenderness bilaterally, no pain with R tragal or pinna movement. Tympanic Membrane ED: Yes TM's clear bilateral Mouth ED: Yes moist mucous membranes normal Eyes PERRL and EOMs intact bilaterally Neck full ROM and supple Chest Wall inspection of chest normal Resp normal respiratory effort and clear to auscultation bilaterally Cardio regular rate and regular rhythm GI soft to palpation, non-tender, non-distended and no masses Back/Spine normal ROM and normal to inspection Extremity normal to inspection and full ROM Neuro oriented x3, CN's II-XII intact bilaterally, moves all extremities, no focal motor deficits and no sensory deficits noted Sensorium / Orientation: awake and alert Psych mental status grossly normal and thought process normal Skin no rashes or lesions noted and no wounds <Dr. Zach San, - Last Filed: 10/21/23 21:26> Physical Exam Const Vital Signs: 10/21/23 19:15 Temperature 97.5 F L Temperature Source Temporal Pulse Rate 85 Respiratory Rate 16 Blood Pressure 192/99 H Blood Pressure Mean 130 Pulse Ox 99 Oxygen Delivery Method Room Air [facility] <YESI Zhang - Last Filed: 10/21/23 21:04> [facility] Narrative Medical decision making narrative: Patient presenting with ear pain over the past 3 days. He is well-appearing and in no acute distress. Blood pressure is high but otherwise vitals are remarkable. Bilateral TMs are clear, no signs of otitis media or externa. No mastoid tenderness bilaterally. No cerumen impaction. There is no rash. He is not having any muffled hearing. He will be given Otocort suspension to use over the next few days. I will give him an ENT referral. He can also use warm compresses on his ear. He has been given return instructions and will be discharged home in stable condition. He is comfortable with plan. <Dr. Zach San DO - Last Filed: 10/21/23 21:26> [facility] Narrative Medical decision making narrative: Patient presenting with ear pain over the past 3 days. He is well-appearing and in no acute distress. Blood pressure is high but otherwise vitals are remarkable. Bilateral TMs are clear, no signs of otitis media or externa. No mastoid tenderness bilaterally. No cerumen impaction. There is no rash. He is not having any muffled hearing. He will be given Otocort suspension to use over the next few days. I will give him an ENT referral. He can also use warm compresses on his ear. He has been given return instructions and will be discharged home in stable condition. He is comfortable with plan. I have personally performed a face to face assessment of the patient and have reviewed the LATASHA Note. I performed a substantive portion of the visit including all aspects of the following. My rouse findings include: History is patient presenting with 3 days of ear pain. No trauma. He notes some pain when he moves the ear. He states the pain gets better when he pushes on the ear canal area. No sore throat. He does note some discomfort in both the forehead and maxillary region of the right face but not the chin. No vision changes. No tip of the nose tingling or sensory change. Exam is tympanic membrane's appear normal. I do not see any significant amount of debris or cerumen in the ear canal. The mastoid is not tender. No rash. There is an area at the 6 o'clock position of the ear canal close to the tympanic membrane appears to have a focal amount of irritation. Medical Decison Making we can try some Cortisporin otic. I do not see a severe otitis externa. We talked about shingles/varicella. We talked about Giraldo's palsy. If no improvement after several days of Cortisporin would recommend follow-up Discharge Plan Triage Chief Complaint: Ear Problem ED Midlevel Provider: Louise Montalvo ED Provider: Zach San Dx/Rx/DC Orders Clinical Impression: Otalgia, right ear Instructions: ED Earache Without Infection (Adult) Prescriptions: No Action Paxlovid 300 mg (150 mg x 2)-100 mg tablets,dose pack See Rx Instructions .ROUTE .COMPLEX Qty: 30 0RF Rx Instructions: take TWO 150 mg tablets of nirmatrelvir with ONE 100 mg tablet of ritonavir twice daily for 5 days [facility] Referrals: Artemio Regalado MD [Med Staff - Active Staff] - 3-5 Days if not improving [facility] [Primary Care Provider] - Activity Restrictions/Additional Instructions: You can apply 4 drops to your ear 3 times a day for the next 2 days. You could also try warm compress to your ear. Follow-up with ENT if no resolution. Return for any worsening of symptoms. Disposition Disposition: Home, Self Care
[2023-10-21] MEDS: Neomycin/Polymyxin/Dexameth 5ML OPTH.BTL 4 DRP OTIC (21:20)
== END 2023-10-21 21:30 | disposition home or self-care (01) ==
PROVIDERS: Emergency Provider Emergency Medicine; Visit Provider Emergency Medicine
DX: H92.01 Otalgia, right ear (principal); F17.210 Nicotine dependence, cigarettes, uncomplicated
CPT/HCPCS: 99282

== ENCOUNTER 2023-11-22 17:22 | Emergency (ER) | payer OTHER, SELFPAY ==
[2023-11-22 17:23] VITALS: BP 193/121; PULSE 74; RESP 22; TEMP 37.2; O2SAT 95
--- OUTSIDE RECORDS SUMMARY | 2023-11-22 18:25 | XMS RPT_ITS | CCD ---
Author Name Unknown Address [address] [place] [address] Organization [facility] Care Team Providers Care Coal Gasification Technician Name Role Phone PHYSICIAN, NONE Primary Care Physician Unavailab WOO Beth DO Attending Unavailable PHYSICIAN, NONE Primary Care Unavailable Allergies Allergy Classification Reported Allergen(s) Allergy Type Date of Onset Reaction(s) Facility (1 source) Penicillin; Translations: [penicillin] Drug Allergy [facility] Medications Current Medications Medication Drug Class(es) Dates [...] hall 03-18-2023 13:38-0400 Body height 198.1 cm WOO [employer] [facility] 03-18-2023 13:38-0400 Body temperature 98.06 [degF] [employer] [facility] 03-18-2023 13:38-0400 Body weight 180.5 kg WOO [employer] [facility] 03-18-2023 13:38-0400 Diastolic Blood Pressure Non-Invasive 90 1 WOO [employer] [facility] 03-18-2023 13:38-0400 Heart rate 92 /min WOO WARNER DO [facility] 03-18-2023 13:38-0400 Respiratory rate 18 /min WOO WARNER DO [facility] 03-18-2023 13:38-0400 Systolic Blood Pressure Non-Invasive 151 1 WOO WARNER DO [facility] Encounters Encounter Date Encounter Type Care Provider Facility Start: 03-18-2023 End: 03-18-2023 Emergency department patient visit WOO WARNER DO Facility:B Start: 03-18-2023 End: 03-18-2023 Emergency department patient visit WOO WARNER DO [facility] Payers Date Payer Category Payer Unknown [id number] 1985 Unknown [id number] Social History Date Type Detail Facility Tobacco smoking status No Smoking Status Entered [facility] Sex Assigned At Male [facility] Functional Status Date Assessment Result Facility 03-18-2023 Functional Status Safety level maintained [facility] Mental Status Date Assessment Result Facility 03-18-2023 Mental Status Oriented x 4 [facility] Discharge instructions 03-18-2023 Note Date & Type [...] are taking other medicines. You may use igmt-ptd-gmptyxf medicine to control pain, unless another pain [...] or as directed by your healthcare provider [id number] [facility]. [address] [place] [address]. All rights reserved. This information is not [...] or legs Numbness in the groin area [phone] [facility]. [address] [place] [address], [place] [address]. All rights reserved. This information is not intended as a substitute for professional medical care. Always follow your healthcare professional's instructions. Follow Up Care 03/18/2023 13:36:33 With:Call Physician Referral Address:Unknown When:2-4 days [facility] Clinical Note 03-18-2023 Note Date & Type Note Facility 03-18-2023 Note Discharge Instructions Thank you for allowing [facility] to assist you with your healthcare needs. [...] providers or retail pharmacies. Medication Leaflets cyclobenzaprine (aamri garnett) Amrix, Comfort Pac with Cyclobenzaprine, Fexmid [...] may report side effects to FDA at 1-162-NOG-3745. What other drugs will affect cyclobenzaprine? Using [...] drugs may affect cyclobenzaprine, including prescription and ladf-ccj-mgfxguf medicines, vitamins, and herbal products. Not all [...] to ensure that the information provided by [employer]') is accurate, up-to-date, and complete, but no guarantee is made to that effect. Drug information contained herein may be time sensitive. [employer] information has been compiled for use by healthcare practitioners and consumers in the [place] and therefore [employer] does not warrant that uses outside of the [place] are appropriate, unless specifically indicated otherwise. [employer]'s drug information does not endorse drugs, diagnose patients or recommend therapy. [employer] drug information is an informational resource designed [...] effective or appropriate for any given patient. [employer] does not assume any responsibility for any aspect of healthcare administered with the aid of information [employer] provides. The information contained herein is not intended to cover all possible uses, directions, precautions, warnings, drug interactions, allergic reactions, or adverse effects. If you have questions about the drugs you are taking, check with your doctor, nurse or pharmacist. Copyright 0956-9379 [employer] Version: 5.01. Revision Date: 07/08/2018. Education Materials [...] are taking other medicines. You may use znye-ktq-ylybmoe medicine to control pain, unless another pain [...] or as directed by your healthcare provider [phone] [facility]. [address] [place] [address], [place] [address]. All rights reserved. This information is not [...] or legs Numbness in the groin area [phone] [facility]. [address] [place] [address], [place] [address]. All rights reserved. This information is not intended as a substitute for professional medical care. Always follow your healthcare professional's instructions. Additional Information VACCINATE! IT SAVES LIVES! Members of the community who have not yet received the COVID-19 vaccine and would like to receive it can visit one of [facility] vaccine clinics. There are many vaccine clinic locations within the [facility]. For locations and available times, please visit www.gettheshot.coronavirus.[place].gov/. It is important to note that some COVID mobile vaccine clinics are held outdoors and may be canceled in rainy or stormy conditions. To learn more about pediatric vaccinations (ages 5-11), we invite you to visit the [facility] webpage. https://www.akYotpos.org/pages/2 572-Upifc-Awcymvwwosp-Frequently-Asked -Questions.html To learn more about the COVID-19 vaccine, we invite you to visit the CDC website for a list of frequently asked questions. https://www.cdc.gov/coronavirus/2019-n cov/vaccines/faq.html [facility] Patient Portal Access Instructions: Stay connected with your healthcare team and access your personal medical information anytime with the [facility] Patient Portal. If you would like a full copy of your medical records please contact the [facility] Medical Records Department Friday through Friday between 8a.m. and 4:30p.m. Please follow the directions below to access the portal: 1.Access the email account you provided upon registration to the [facility].2.Look for an invitation email from [facility].3.Open the email and access the invitation link: Accept Invitation to [facility].Fill in the required finch to create your account. Sign into [email or web address] with your username and password that you [...] you will allow to register on the [facility] Patient Portal for access to your information. You can also access the [facility] Patient Portal on the [employer] denise. Simply click on Health Records under Health Data and then click on the [employer] logo. HOW TO SAFELY DISPOSE OF PRESCRIPTION [...] Call your local pharmacy or go to [email or web address] to find one close to you.3.Make use of household items: Use cat litter or old coffee grounds to dispose medications if other options are not available. Mix your drugs with these household products, seal them in an airtight container and throw it into the garbage. Call [facility]: [phone] to be sure your drugs can be [...] aware that I should contact my doctor. 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 Signature: _ Date/Time: Relationship to Patient: Witness Name/Signature: Date/Time: [facility] Evaluation + Plan note Note Date & Type Note Facility Evaluation + Plan note No data available for this section [facility] Summary Purpose Family History No Family History Records Found Advance Directives No Advanced Directives Records Found Additional Source Comments Patient Care team informatio n (unrecognized section and content) Care Team Personnel Name: PHYSICIAN, NONE Position: Physician Member Role: Primary Care Physician Name: GENNARO JOSE MD Position: Resident Member Role: Resident Address: Address: [address] [place] [address] ED Resident [address] Name: Jacqui Roque RN Position: AO RN Member Role: RN Name: WOO WARNER DO Position: ED Physician Member Role: Attending Physician Address: Address: [address] [place] [address] [employer] [address] (unrecognized sect ion and content) No [...] BE BASED ON THE PRIMARY CLINICAL RECORDS. [facility]. provides no warranty or guarantee of the accuracy or completeness of information in this document.
--- NOTE | 2023-11-22 19:10 | ED.VIS.DENTA ---
HPI History of Present Illness Chief Complaint: Dental Informant: patient Narrative Narrative: Patient presents with right lower dental pain. Is been hurting for 3 weeks. He has not seen anyone yet. He states it just hurts to talk or chew but he is eating and drinking. No fevers or chills. No trouble swallowing or handling secretions. He is still working. Of note, he prefers to give a lot of his history by typing on the phone. But he is able to speak fine. PFSH PFS Medical History Chronic neck and back pain Fatigue Knee pain Limb weakness Lumbar strain Right shoulder strain Shortness of breath Shoulder pain Strain of right trapezius muscle Home Medications clindamycin HCl 300 mg capsule (Cleocin HCl) 300 mg PO Q6H #40 CAPSULES 11/22/23 [Rx Last Taken Unknown] naproxen 500 mg tablet (Naprosyn) 500 mg PO BID PRN pain #20 tabs 11/22/23 [Rx Last Taken Unknown] Allergy/AdvReac Type Severity Reaction Status Date / Time Penicillins Allergy Mild Swelling Verified 11/22/23 17:22 Surgical History H/O knee surgery Social History Smoking Status: Current every day smoker tobacco type: cigarettes alcohol intake: never ROS ROS ED Constitutional Constitutional ED: Denies chills or fever(s) Eyes Eyes: Denies change in vision ENT ENT ED: Reports other Details: See history of present illness Cardiovascular Cardiovascular: Denies chest pain, palpitations or racing heartbeat Respiratory/Chest Respiratory/Chest: Denies cough or dyspnea Gastrointestinal Gastrointestinal: Denies nausea or vomiting Integumentary Denies rash Hematologic/Lymphatic Hematologic/Lymphatic: Denies easy bleeding, easy bruising or lymphadenopathy EXAM Physical Exam Narrative Exam Narrative: General: Patient awake alert no acute distress lying back on the bed comfortably. HEENT: No external swelling or redness. He does have a hole in his posterior molar on the right. There is some mild gum erythema but no swelling. No sign of Dao's angina. He can open and close well. No trismus. Tongue motion is normal. Neck shows no lymphadenopathy Lungs are clear bilaterally and sats are normal 95% on room air showing no hypoxia. Heart is regular. Abdomen is obese but benign. Const Vital Signs: 11/22/23 17:23 Temperature 99 F Temperature Source Temporal Pulse Rate 74 Respiratory Rate 22 H Blood Pressure 193/121 H Blood Pressure Mean 145 Pulse Ox 95 Oxygen Delivery Method Room Air MDM MDM MDM Narrative Medical decision making narrative: Patient we treat his dental infection. No sign of Sameer's. We also told him he needs to follow-up and get his blood pressure checked. Of note, his online prescribing review is negative for any controlled substances. Discharge Plan Triage Chief Complaint: Dental ED Provider: Dariel Martinez Dx/Rx/DC Orders Clinical Impression: Abscess, dental Instructions: Dental Abscess Prescriptions: New clindamycin HCl [Cleocin HCl] 300 mg capsule 300 mg PO Q6H Qty: 40 0RF naproxen [Naprosyn] 500 mg tablet 500 mg PO BID PRN (Reason: pain) Qty: 20 0RF Primary Care Provider[facility] Referrals[place] [facility] [Primary Care Provider] - As soon as possible Activity Restrictions/Additional Instructions: Follow-up with dentist. Disposition Disposition: Home, Self Care
[2023-11-22] MEDS: Clindamycin HCl 150 MG Capsule 300 MG PO (19:50)
[2023-11-22] MEDS: traMADol 50 MG Tablet PO (19:50)
[2023-11-22 19:53] VITALS: PULSE 86; RESP 18; O2SAT 97
== END 2023-11-22 19:53 | disposition home or self-care (01) ==
PROVIDERS: Emergency Provider Emergency Medicine; Visit Provider Emergency Medicine
DX: K04.7 Periapical abscess without sinus (principal); F17.210 Nicotine dependence, cigarettes, uncomplicated
CPT/HCPCS: 99283

== ENCOUNTER 2024-01-15 21:08 | Emergency (ER) | payer OTHER, SELFPAY ==
[2024-01-15 21:09] VITALS: BP 166/88; PULSE 85; RESP 18; TEMP 36.7; O2SAT 99; BMI 45.3
--- NOTE | 2024-01-15 21:29 | EDS_ITS ---
HPI History of Present Illness Chief Complaint: Lower Extremity Injury Informant: patient Narrative Narrative: Patient presents just after an injury to his right knee. He was at work, he was lifting a box that weighed maybe 20 or 30 pounds according to his estimate, and he felt a pop in his knee gradual onset of pain subsequently. Hurts to walk he is able. No other injuries. No history of knee problems prior to this. [facility] Medical History Asthma Chest pain Chronic neck and back pain CPAP (continuous positive airway pressure) dependence Depression Fatigue Knee pain Limb weakness Lumbar strain Migraines Osteoporosis Right shoulder strain Shortness of breath Shoulder pain Sleep apnea Smoker Strain of right trapezius muscle Home Medications acetaminophen 325 mg tablet (Tylenol) 650 mg PO Q6H 01/15/24 [History Last Taken Unknown] cholecalciferol (vitamin D3) 25 mcg (1,000 unit) capsule 75 mcg PO DAILY 01/15/24 [History Last Taken Unknown] tizanidine 4 mg capsule 4 mg PO Q6H PRN back spasms 01/15/24 [History Last Taken Unknown] Allergy/AdvReac Type Severity Reaction Status Date / Time Penicillins Allergy Mild Swelling Verified 01/15/24 21:11 Surgical History (Updated 01/15/24 @ 21:17 by Camelia Badillo) H/O knee surgery History of embolic filter insertion Previous back surgery Social History Smoking Status: Current every day smoker tobacco type: cigarettes alcohol intake: never ROS ROS ED Constitutional Constitutional ED: Denies chills or fever(s) Musculoskeletal Musculoskeletal: Reports extremity pain; Denies neck pain Integumentary Denies Abrasions, rash or wounds Neurologic Neurologic: Denies paresthesias or weakness EXAM Physical Exam Const Vital Signs: 01/15/24 21:09 Temperature 98.1 F Temperature Source Temporal Pulse Rate 85 Respiratory Rate 18 Blood Pressure 166/88 H Blood Pressure Mean 114 Pulse Ox 99 Oxygen Delivery Method Room Air Positive well nourished and well developed General Appearance ED: well developed and NAD Neck full ROM and supple Back/Spine normal ROM and normal to inspection Extremity Extremity Narrative: Pain and tenderness mostly at the lateral joint line of the right knee, not so much anteriorly. No effusion. Extensor mechanism intact. No other bony tenderness. All ligaments with short endpoints and stable on stressing, he has more pain laterally with stressing the MCL and pushing on the lateral aspect then with stressing the LCL. Negative Yue, negative posterior drawer sign. Limited flexion at extreme due to pain. No obvious asymmetry/swelling. Neurovascularly intact distally. Neuro oriented x3, no focal motor deficits and no sensory deficits noted Sensorium / Orientation: alert Psych mental status grossly normal and thought process normal Skin no wounds Rashes: no rashes MDM MDM MDM Narrative Medical decision making narrative: 4 view x-ray series of the right knee were obtained and on my interpretation are negative for any acute fracture or large effusion. Patient reassured given an kiersten wrap, anti-inflammatory dose, and will be given work restrictions advise follow-up with [facility], differential includes meniscus injury but also could simply be a sprain that will get better with time and rest. Follow-up advised. Discharge Plan Triage Chief Complaint: Lower Extremity Injury ED Provider: Avinash Olmos Dx/Rx/DC Orders Clinical Impression: Right knee sprain Instructions: ED Knee Sprain Prescriptions: No Action tizanidine 4 mg capsule 4 mg PO Q6H PRN (Reason: back spasms) Rx Instructions: do not exceed 3 doses per 24 hrs cholecalciferol (vitamin D3) 25 mcg (1,000 unit) capsule 75 mcg PO DAILY acetaminophen [Tylenol] 325 mg tablet 650 mg PO Q6H [place] Care [facility] [place] Referrals: [facility] [Group of Physicians] - [place] soon as possible [facility] [Primary Care Provider] - Disposition Disposition: Home, Self Care
--- NOTE | 2024-01-15 21:30 | RAD_ITS ---
EXAM: XR RIGHT KNEE COMPLETE, 4 OR MORE VIEWS CLINICAL INDICATION: injury TECHNIQUE: Four or more views of the right knee. COMPARISON: No relevant prior studies available. FINDINGS: BONES/JOINTS: Unremarkable. No acute fracture. No subluxation. Normal alignment. Preservation of the joint space. No sclerotic or destructive changes observed. SOFT TISSUES: Unremarkable. No soft tissue swelling or gas. No radiopaque foreign body. RAD/Knee 4 or More Views IMPRESSION: Negative right knee x-rays. Electronically Signed: Musa Alvarado MD at 21:50 EDT ,
[2024-01-15] MEDS: Naproxen 250 MG Tablet 500 MG PO (21:50)
[2024-01-15 21:53] VITALS: BP 157/88; PULSE 75; RESP 14; TEMP 36.8; O2SAT 99
== END 2024-01-15 22:10 | disposition home or self-care (01) ==
PROVIDERS: Emergency Provider Emergency Medicine; Visit Provider Emergency Medicine
DX: S83.91XA Sprain of unspecified site of right knee, initial encounter (principal); X50.0XXA Overexertion from strenuous movement or load, initial encounter; Y93.89 Activity, other specified; Y92.89 Other specified places as the place of occurrence of the external cause; G47.30 Sleep apnea, unspecified; Z99.89 Dependence on other enabling machines and devices; F17.210 Nicotine dependence, cigarettes, uncomplicated
CPT/HCPCS: 73564; 99282

== ENCOUNTER 2024-05-20 09:23 | Emergency (ER) | payer OTHER, SELFPAY ==
[2024-05-20 09:24] VITALS: BP 186/95; PULSE 83; RESP 14; TEMP 36.6; O2SAT 99; BMI 46.0
--- NOTE | 2024-05-20 09:32 | EKG12_ITS ---
Test Reason : Blood Pressure : / mmHG Vent. Rate : 077 BPM Atrial Rate : 077 BPM P-R Int : 162 ms QRS Dur : 112 ms QT Int : 386 ms P-R-T Axes : 046 062 050 degrees QTc Int : 436 ms Normal sinus rhythm Normal ECG Confirmed by MARIO HIGGINBOTHAM, CARO ([id number]), editor & co founder VERONICA AGUILAR ([id number]) on 05/24/2024 8:43:03 AM Referred By: Confirmed By:CARMEN MARTIN MD
--- NOTE | 2024-05-20 09:34 | ED.VIS.DYS ---
HPI History of Present Illness Chief Complaint: Asthma Detail of Chief Complaint: Shortness of breath and chest pain Informant: patient Narrative Narrative: Patient presents to the emergency department complaint shortness of breath and chest pain. Patient states that last evening he had a low-grade fever up to 99 at home. This morning he woke up feeling fine. Progressively developed some shortness of breath and a cough. Developed right sided chest pain as sharp and numb like. Denies recent travel or surgery. No history of PE or DVT. No heart history. Patient denies sick contacts. [facility] Medical History Asthma Chest pain Chronic neck and back pain CPAP (continuous positive airway pressure) dependence Depression Fatigue Knee pain Limb weakness Lumbar strain Migraines Osteoporosis Right shoulder strain Shortness of breath Shoulder pain Sleep apnea Smoker Strain of right trapezius muscle Home Medications ?Medication ?Instructions ?Recorded ?Last Taken ?Type acetaminophen 325 mg tablet 650 mg PO Q6H 01/15/24 Unknown History (Tylenol) cholecalciferol (vitamin D3) 25 75 mcg PO DAILY 01/15/24 Unknown History mcg (1,000 unit) capsule tizanidine 4 mg capsule 4 mg PO Q6H PRN back spasms 01/15/24 Unknown History prednisone 20 mg tablet 20 mg PO BID #10 tabs 05/20/24 Unknown Rx Allergy/AdvReac Type Severity Reaction Status Date / Time Penicillins Allergy Mild Swelling Verified 05/20/24 09:24 Family History no significant family his Surgical History Previous back surgery History of embolic filter insertion H/O knee surgery Social History Smoking Status: Current every day smoker tobacco type: cigarettes alcohol intake: never ROS ROS ED Review of Systems ROS Unobtainable: other Constitutional Constitutional ED: Reports chills, fever(s), lethargy and sweats; Denies weight loss Eyes Eyes: Denies blurry vision, change in vision or diplopia ENT ENT ED: Denies rhinorrhea or sore throat Cardiovascular Cardiovascular: Reports chest pain; Denies orthopnea or racing heartbeat Respiratory/Chest Respiratory/Chest: Reports cough, dyspnea and dyspnea on exertion; Denies orthopnea or sputum Gastrointestinal Gastrointestinal: Denies abdominal pain, diarrhea, nausea or vomiting Genitourinary Genitourinary ED: Denies dysuria, hematuria or urinary frequency Musculoskeletal Musculoskeletal: Denies arthralgias, back pain, myalgias or neck pain Integumentary Denies abscess, Abrasions or rash Neurologic Neurologic: Denies headache(s) or weakness Psychiatric Psychiatric: Denies anxiety, depression or suicidal thoughts Endocrine Endocrinology: Denies polydipsia, polyphagia or polyuria Hematologic/Lymphatic Hematologic/Lymphatic: Denies easy bleeding, easy bruising or lymphadenopathy Allergic/Immunologic Allergic/Immunologic ED: Denies mouth swelling, tongue swelling or urticaria EXAM Physical Exam Const Vital Signs: 05/20/24 09:24 05/20/24 09:24 05/20/24 09:32 Temperature 98 F Temperature Source Temporal Pulse Rate 83 Respiratory Rate 14 Respiratory Effort Non-Labored Short of Breath Respiratory Depth Normal Respiratory Pattern Normal Blood Pressure 186/95 H Blood Pressure Mean 125 Pulse Ox 99 Oxygen Delivery Method Room Air Room Air Room Air 05/20/24 09:39 05/20/24 09:39 Temperature Temperature Source Pulse Rate 79 Respiratory Rate 18 Respiratory Effort Respiratory Depth Respiratory Pattern Blood Pressure Blood Pressure Mean Pulse Ox 99 Oxygen Delivery Method Room Air Positive well nourished and well developed General Appearance ED: well developed and NAD HEENT Reports TM's clear and moist mucous membranes normocephalic and atraumatic; Negative for trauma or tenderness Tympanic Membrane ED: Yes TM's clear Eyes PERRL and EOMs intact bilaterally General Eye ED: Negative for pale conjunctiva or scleral icterus Neck no lymphadenopathy, supple and no JVD General: Negative for tenderness Chest Wall inspection of chest normal and palpation of chest normal Chest: Negative for tenderness Resp normal respiratory effort and No clear to auscultation bilaterally Effort and Inspection: Negative for respiratory distress or pain with movement Auscultation: wheezes; Negative for rhonchi or diminished lung sounds Cardio regular rate, regular rhythm, S1 normal heart sound, S2 normal heart sound and no murmurs Peripheral Pulses: pulses 2+ throughout GI normal to inspection, nondistended, normoactive bowel sounds, soft to palpation, non-tender, non-distended and no masses Back/Spine no CVA tenderness and no thoracic nor lumbar tenderness Extremity normal to inspection General Extremety ED: Negative for edema General Extremity: Negative for edema Neuro oriented x3, CN's II-XII intact bilaterally, no sensory deficits noted and gait normal Sensorium / Orientation: awake, alert, oriented to person, oriented to place and oriented to time Motor Exam: strength 5/5 throughout and strength abnormal Psych mental status grossly normal Skin no rashes or lesions noted and no wounds MDM MDM MDM Narrative Medical decision making narrative: Patient presents with cough and low-grade fever and shortness of breath. History of asthma and seasonal allergies. Denies recent travel or surgery. In the differential would be pneumonia versus asthma exacerbation versus viral infection. Less likely would be PE or cardiac etiology. IV line established. EKG obtained arrival showed a sinus rhythm with ventricular rate of 77 bpm with no acute ST segment changes. CBC with differential count 7.2 with hemoglobin 12 and platelet count of 221. Chemistries unremarkable. Troponin was normal at 6. D-dimer was normal at 0.40. 1 view chest x-ray was unremarkable without evidence of infiltrate or pneumothorax or acute disease process. COVID flu and RSV testing was negative. While in department he received a DuoNeb aerosol and was started on prednisone. He felt markedly improved after treatment. Lab Data Attestation: I reviewed the patient's lab results. Labs: Laboratory Results - last 24 hr 05/20/24 09:50 WBC 7.2 RBC 4.18 L Hgb 12.3 L Hct 37.4 L MCV 89.5 MCH 29.4 MCHC 32.9 RDW Std Deviation 44.0 H RDW Coeff of [place] 13.4 Plt Count 221 MPV 11.0 Immature Gran % (Auto) 0.300 Neut % (Auto) 54.1 Lymph % (Auto) 34.8 [place] % (Auto) 5.9 Eos % (Auto) 4.1 Baso % (Auto) 0.8 Absolute Neuts (auto) 3.9 Absolute Lymphs (auto) 2.52 Nucleated RBC % 0 D-Dimer Quant (PE/DVT) 0.40 Sodium 138 Potassium 4.1 Chloride 108 H Carbon Dioxide 28.0 Anion Gap 2 L BUN 15 Creatinine 1.00 Estim Creat Clear Calc 174.68 Est GFR (MDRD) Af Amer 106 Est GFR (MDRD) Non-Af 87 BUN/Creatinine Ratio 15.0 Glucose 92 Calcium 8.9 Troponin I High Sens 6 Radiography Diagnostic Testing: Clinical Impression(s) from Imaging Studies Chest X-Ray 05/20/24 09:50 IMPRESSION: No radiographic evidence of acute cardiopulmonary disease. Electronically Signed: Branydn Lemus MD at 10:39 EDT , 1 view chest x-ray obtained interpreted by myself is no evidence of infiltrate or pneumothorax or acute disease process. Radiology in agreement. EKG Initial EKG: Attestation: I personally reviewed and interpreted this EKG as follows: Comments: Sinus rhythm with ventricular rate of 77 bpm with no acute ST segment Discharge Plan Triage Chief Complaint: Asthma ED Provider: [facility] Dx/Rx/DC Orders Clinical Impression: Asthmatic bronchitis Instructions: ED Bronchitis with Wheezing (Adult) Prescriptions: New prednisone 20 mg tablet 20 mg PO BID Qty: 10 0RF No Action tizanidine 4 mg capsule 4 mg PO Q6H PRN (Reason: back spasms) Rx Instructions: do not exceed 3 doses per 24 hrs cholecalciferol (vitamin D3) 25 mcg (1,000 unit) capsule 75 mcg PO DAILY acetaminophen [Tylenol] 325 mg tablet 650 mg PO Q6H [facility] Referrals: [facility] [Primary Care Provider] - Activity Restrictions/Additional Instructions: <del>Follow-up</del> <del>with</del> <del>your</del> <del>primary</del> <del>care</del> <del>physician</del> <del>within</del> <del>next</del> <del>to</del> <del>7</del> <del>days.</del> Print Language: Khmer Disposition Disposition: Home, Self Care
--- NOTE | 2024-05-20 09:35 | NURSING ---
NO OLD EKGS
[2024-05-20] MEDS: Ipratropium/Albuterol Sulfate 3 ML AMPUL.NEB INHALATION (09:38)
[2024-05-20 09:39] VITALS: PULSE 79; RESP 18; O2SAT 99
[2024-05-20] MEDS: predniSONE 20 MG Tablet 40 MG PO (09:40)
--- NOTE | 2024-05-20 09:50 | RAD_ITS ---
EXAM: XR CHEST, 1 VIEW CLINICAL INDICATION: dyspnea TECHNIQUE: Frontal view of the chest. COMPARISON: No relevant prior studies available. FINDINGS: LUNGS AND PLEURAL SPACES: Unremarkable. No consolidation or edema. No pneumothorax. No effusion. HEART: Unremarkable. Cardiac silhouette not enlarged. MEDIASTINUM: Central airways and mediastinal contour are unremarkable. BONES/JOINTS: Unremarkable. No acute fracture. SOFT TISSUES: Unremarkable. RAD/Chest 1 View (Portable) IMPRESSION: No radiographic evidence of acute cardiopulmonary disease. Electronically Signed: Brandyn Lemus MD at 10:39 EDT ,
[2024-05-20 09:59] LABS: Absolute Lymphocyte Count 2.52 X10^3/uL (0.83-4.51); Absolute Neutrophil Count 3.9 X10^3/uL (2.0-7.7); Basophil# 0.06 X10^3/uL; Basophil% 0.8 % (0-1); Eosinophils% 4.1 % (0-5); Hematocrit 37.4 % (40-54); Hemoglobin 12.3 g/dL (13.0-16.5); Lymphocyte # 2.52 X10^3/ul (0.83-4.51); Lymphocyte % 34.8 % (19-41); Mean Corp Hgb Conc 32.9 g/dL (32-36); Mean Corpuscular Hgb 29.4 pg (27.0-32.0); Mean Corpuscular Volume 89.5 fL (80-94); Monocyte# 0.43 X10^3/uL; Monocyte% 5.9 % (0-10); NRBC Flagged by Analyzer 0 % (0-5); Neutrophil # 3.91 X10^3/uL (2.7-7.7); Neutrophil % 54.1 % (47-70); Platelet Count 221 K/mm3 (150-450); RBC Distribution Width CV 13.4 % (11.6-14.6); Red Blood Count 4.18 M/mm3 (4.6-6.2); White Blood Count 7.2 K/mm3 (4.4-11.0)
[2024-05-20 10:16] LABS: Anion Gap 2 (5-15); BUN 15 mg/dL (7-18); Calcium,Total 8.9 mg/dL (8.5-10.1); Chloride 108 mmol/L (98-107); EST Glomerular Filtration Rate 87 mL/min (>60); Est Glom Filt Rate - Afr Amer 106 mL/min (>60); Estimated Creatinine Clearance 174.68 ml/min; Glucose 92 mg/dL (74-106); Potassium 4.1 mmol/L (3.5-5.1); Sodium Level 138 mmol/L (136-145); Troponin-I HS 6 pg/mL (3.0-78.0)
[2024-05-20 11:00] VITALS: BP 150/80; PULSE 75; RESP 14; TEMP 36.7; O2SAT 99
== END 2024-05-20 11:14 | disposition home or self-care (01) ==
PROVIDERS: Emergency Provider Emergency Medicine; Visit Provider Emergency Medicine
DX: J45.909 Unspecified asthma, uncomplicated (principal); F17.210 Nicotine dependence, cigarettes, uncomplicated
CPT/HCPCS: 71045; 80048; 84484; 85025; 85379; 87631; 93005; 94640; 99285; A4216

== ENCOUNTER 2024-07-16 18:08 | Emergency (ER) | payer OTHER, SELFPAY ==
[2024-07-16 18:09] VITALS: BP 202/115; PULSE 90; RESP 16; TEMP 36.8; O2SAT 100
[2024-07-16 22:22] VITALS: BP 141/72; PULSE 75; RESP 16; O2SAT 94
--- NOTE | 2024-07-16 22:29 | EDS_ITS ---
HPI History of Present Illness Chief Complaint: Back Narrative Narrative: Chief complaint and HPI: Lumbar back pain. 39-year-old male with with past medical history of back pain with as needed muscle relaxers presents for evaluation of left-sided lumbar back pain. 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 He states that a week ago he lifted something heavy in which he developed left lower back pain. Pain does not radiate down the legs or up the back. He denies any numbness or tingling. Denies any weakness. Denies any midline back pain. Denies any fever, chills, shortness of breath, chest pain abdominal pain, nausea, vomiting, incontinence/retention of urine or bowel. P atient states he has been taking Tylenol at home. He states he ran out of his muscle relaxers. Patient is hypertensive on arrival, he states that he ran out of his antihypertensives but that he called into his PCP and is getting it filled this weekend. He did not take his blood pressure medication today. He denies any headache, lightheadedness. Review of systems: See HPI Medications: As listed on the chart Allergies: As listed on the chart PFSH: Per chart Vital signs: As listed on the chart. Reviewed. Physical exam: Gen: A&O x3, NAD Head: Normocephalic, atraumatic Eyes: No sclera icterus, conjunctiva clear, PERRL, EOMI ENT: Moist mucous membranes Neck: Trachea midline, No JVD, full range of motion, nontender CV: RRR, no murmurs, no peripheral edema Resp: Lungs CTA BL, no w/r/c GI: Abd soft, non-distended, non-tender, no r/r/g Musc: Full ROM, no deformity, normal gait, strength plus 5 out of 5 in all extremities, no midline spinal tenderness, no bony step-offs, patient is mildly tender to palpation of the lumbar paraspinal musculature on the left-muscles are tense-with palpation this recreates the patient's pain Skin: Warm, dry Neuro: Alert, oriented, grossly intact, sensation intact Psych: Cooperative, appropriate mood and affect [facility] Medical History Asthma Chest pain Chronic neck and back pain CPAP (continuous positive airway pressure) dependence Depression Fatigue Knee pain Limb weakness Lumbar strain Migraines Osteoporosis Right shoulder strain Shortness of breath Shoulder pain Sleep apnea Smoker Strain of right trapezius muscle Home Medications ?Medication ?Instructions ?Recorded ?Last Taken ?Type acetaminophen 325 mg tablet 650 mg PO Q6H 01/15/24 Unknown History (Tylenol) cholecalciferol (vitamin D3) 25 75 mcg PO DAILY 01/15/24 Unknown History mcg (1,000 unit) capsule tizanidine 4 mg capsule 4 mg PO Q6H PRN back spasms 01/15/24 Unknown History prednisone 20 mg tablet 20 mg PO BID #10 tabs 05/20/24 Unknown Rx Allergy/AdvReac Type Severity Reaction Status Date / Time Penicillins Allergy Mild Swelling Verified 07/16/24 18:11 Surgical History Previous back surgery History of embolic filter insertion H/O knee surgery Social History Smoking Status: Current every day smoker tobacco type: cigarettes alcohol intake: never EXAM Physical Exam Const Vital Signs: 07/16/24 18:09 07/16/24 22:22 Temperature 98.2 F Temperature Source Temporal Pulse Rate 90 75 Respiratory Rate 16 16 Blood Pressure 202/115 H 141/72 H Blood Pressure Mean 144 95 Pulse Ox 100 94 Oxygen Delivery Method Room Air Room Air MDM MDM MDM Narrative Medical decision making narrative: 39-year-old male presents for evaluation of back pain. There has been no direct trauma. There is nothing to suggest any infectious etiology. The patient is not an IV drug user. There is no neurologic findings to suggest an acute cauda equina syndrome, infectious etiology, or any acute radiculopathy. At this point I do not feel any emergent imaging such as x-rays or MRI are warranted. Patient symptoms will be treated with Toradol. He has already taken a muscle relaxer. On presentation, patient is hypertensive in the 200s. Patient states he ran out of his hypertensive medication but that it is cannot be filled this weekend. He is asymptomatic from his hypertension. Will give IV labetalol. I do not think any laboratory workup is needed at this time. Patient's blood pressure improved on its own to 141/72. He did not need labetalol. Patient has remained asymptomatic. On reexamination, his pain has improved. Patient is stable to discharge home. He will be filling his prescription for his antihypertensives this weekend. He has muscle relaxers at home. He was told to take Tylenol and ibuprofen as needed. He does not follow-up with orthopedics therefore I will refer him to 1. He confirmed understanding of plan. Return precautions explained. Impression: 1. Lumbar back strain 2. Asymptomatic hypertension with known hypertension Discharge Plan Triage Chief Complaint: Back ED Provider: [facility] Dx/Rx/DC Orders Prescriptions: No Action tizanidine 4 mg capsule 4 mg PO Q6H PRN (Reason: back spasms) Rx Instructions: do not exceed 3 doses per 24 hrs cholecalciferol (vitamin D3) 25 mcg (1,000 unit) capsule 75 mcg PO DAILY acetaminophen [Tylenol] 325 mg tablet 650 mg PO Q6H prednisone 20 mg tablet 20 mg PO BID Qty: 10 0RF [facility] Referrals: [facility] [Primary Care Provider] - Print Language: Bruneian
[2024-07-16] MEDS: Ketorolac 30 MG/ML Syringe IV (23:19)
[2024-07-16 23:20] VITALS: BP 158/77; PULSE 76; RESP 19; TEMP 36.6; O2SAT 96
== END 2024-07-16 23:50 | disposition home or self-care (01) ==
PROVIDERS: Emergency Provider Surgery; Visit Provider Surgery
DX: S39.012A Strain of muscle, fascia and tendon of lower back, initial encounter (principal); I10 Essential (primary) hypertension; X50.0XXA Overexertion from strenuous movement or load, initial encounter; G47.30 Sleep apnea, unspecified; Z99.89 Dependence on other enabling machines and devices; F17.210 Nicotine dependence, cigarettes, uncomplicated
CPT/HCPCS: 96374; 99282

== ENCOUNTER 2024-07-27 10:13 | Emergency (ER) | payer OTHER, SELFPAY ==
[2024-07-27 10:14] VITALS: BP 159/88; PULSE 82; RESP 16; TEMP 36.6; O2SAT 99
--- NOTE | 2024-07-27 12:38 | CT_ITS ---
HISTORY: low back injury. TECHNIQUE: Helically acquired images were obtained of the lumbar spine without contrast. A radiation dose optimization technique was used for this scan. 392 images. COMPARISON: None. FINDINGS: VERTEBRAE: Vertebral body heights maintained. Posterior elements intact. ALIGNMENT: No significant anterior or posterior subluxation. INTERVERTEBRAL DISCS: Mild disc bulges of L3-4, L4-5, and L5-S1. No critical central canal stenosis seen. Bilateral foraminal narrowing. SOFT TISSUES: No paraspinal fluid collections. CT/Spine Lumbar without Contrast IMPRESSION: No evidence for acute fracture or dislocation in the lumbar spine. Mild degenerative disc disease. Electronically Signed: Judi Figueroa MD at 14:02 EDT ,
--- NOTE | 2024-07-27 12:50 | EX.ED.GENINJ ---
HPI History of Present Illness Chief Complaint: Back Informant: patient Narrative Narrative: 39-year-old male presenting to the emergency room with left low back pain. Patient states that early this morning around 0200 hrs. 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 States he put the pipe on the ground and then he coughed he felt the pop in the low back. Pain radiated down the posterior aspect of the left thigh to the level of the knee. He states that he has had continued to have pain since and difficulty moving. Denies any bowel or bladder dysfunction. States that last week he had a similar pain but not as severe that eventually got better and was felt at that time on evaluation in the emergency department to be muscular in nature. He denies any known malignancies. [facility]. No significant chronic medical problems. [facility] Medical History Depression Osteoporosis Smoker CPAP (continuous positive airway pressure) dependence Sleep apnea Asthma Chest pain Migraines Right shoulder strain Strain of right trapezius muscle Lumbar strain Chronic neck and back pain Limb weakness Knee pain Fatigue Shoulder pain Shortness of breath Home Medications ?Medication ?Instructions ?Recorded ?Last Taken ?Type acetaminophen 325 mg tablet 650 mg PO Q6H 01/15/24 Unknown History (Tylenol) cholecalciferol (vitamin D3) 25 75 mcg PO DAILY 01/15/24 Unknown History mcg (1,000 unit) capsule tizanidine 4 mg capsule 4 mg PO Q6H PRN back spasms 01/15/24 Unknown History prednisone 20 mg tablet 20 mg PO BID #10 tabs 05/20/24 Unknown Rx cyclobenzaprine 10 mg tablet 10 mg PO TID PRN Muscle Spasm #15 07/27/24 Unknown Rx TABLETS ibuprofen 600 mg tablet 600 mg PO Q6H PRN PRN pain #20 07/27/24 Unknown Rx TABLETS oxycodone-acetaminophen 5 mg-325 1 tab PO Q6H PRN pain 3 days #12 07/27/24 Unknown Rx mg tablet (Percocet) tabs Allergy/AdvReac Type Severity Reaction Status Date / Time Penicillins Allergy Mild Swelling Verified 07/27/24 10:13 Surgical History Previous back surgery History of embolic filter insertion H/O knee surgery Social History Smoking Status: Current every day smoker tobacco type: cigarettes alcohol intake: never ROS ROS ED Constitutional Constitutional ED: Denies chills, fever(s) or weight loss Eyes Eyes: Denies change in vision or diplopia ENT ENT ED: Denies ear pain, rhinorrhea or sore throat Cardiovascular Cardiovascular: Denies chest pain, orthopnea, palpitations or racing heartbeat Respiratory/Chest Respiratory/Chest: Denies cough, dyspnea or orthopnea Gastrointestinal Gastrointestinal: Denies abdominal pain, diarrhea, nausea or vomiting Genitourinary Genitourinary ED: Denies dysuria, hematuria or urinary frequency Musculoskeletal Musculoskeletal: Reports back pain; Denies arthralgias, myalgias or neck pain Integumentary Denies abscess or rash Neurologic Neurologic: Denies headache(s) or weakness Psychiatric Psychiatric: Denies anxiety, depression, suicidal ideation or suicidal thoughts Endocrine Endocrinology: Denies polydipsia, polyphagia or polyuria Allergic/Immunologic Allergic/Immunologic ED: Denies mouth swelling, tongue swelling or urticaria EXAM Physical Exam Const Vital Signs: 07/27/24 10:14 07/27/24 14:13 07/27/24 14:55 Temperature 97.8 F 97 F L Temperature Source Oral Pulse Rate 82 76 67 Respiratory Rate 16 16 16 Blood Pressure 159/88 H 132/76 H 137/86 H Blood Pressure Mean 111 94 103 Pulse Ox 99 95 97 Oxygen Delivery Method Room Air Room Air Positive well nourished, well developed and obese General Appearance ED: well developed and NAD Nutritional Appearance: obese HEENT Reports normocephalic, head/scalp atraumatic and moist mucous membranes Eyes PERRL and EOMs intact bilaterally Neck no lymphadenopathy, supple and no JVD Resp normal respiratory effort and clear to auscultation bilaterally Cardio regular rate, regular rhythm and no murmurs GI normal to inspection, nondistended, normoactive bowel sounds and non-tender Palpation: soft Back/Spine no CVA tenderness Back/Spine Narrative: Patient has painful range of motion. He has tenderness to palpation over the left low back lumbar paraspinal musculature and slightly in the midline. There are no soft tissue texture changes to suggest underlying infection. There is no rash. Extremity normal to inspection General Extremety ED: Negative for edema General Extremity: Negative for edema Neuro oriented x3 and CN's II-XII intact bilaterally Sensorium / Orientation: alert Motor Exam: strength 5/5 throughout Deep Tendon Reflexes: Rt Patellar (L4): 2+, Lt Patellar (L4): 2+, Rt Ankle (S1): 2+ and Lt Ankle (S1): 2+ Deep Tendon Reflexes Back: Rt Patellar (L4): 2+, Lt Patellar (L4): 2+, Rt Ankle (S1): 2+ and Lt Ankle (S1): 2+ Psych mental status grossly normal Mood & Affect: Negative for depressed or tearful Skin no rashes or lesions noted and no wounds MDM MDM MDM Narrative Medical decision making narrative: Differential diagnosis includes but not limited to disc herniation fracture muscular spasm myofascial strain radiculopathy spinal stenosis infection CT lumbar spine was obtained. This demonstrates mild degenerative changes but no acute fracture. There is no evidence of significant spinal stenosis. Patient received a dose of oxycodone for pain. I discussed the above findings with him. Given body habitus there could be core imbalance and would possibly benefit from PT evaluation. Not seeing obvious need for referral to spine surgery at this time. I will write for pain and muscle relaxants. Would recommend PCP follow-up to discuss further management. Radiography Diagnostic Testing: Clinical Impression(s) from Imaging Studies Lumbar Spine CT 07/27/24 12:38 IMPRESSION: No evidence for acute fracture or dislocation in the lumbar spine. Mild degenerative disc disease. Electronically Signed: Judi Figueroa MD at 14:02 EDT Reading Location ID and State: [facility] / [place] Tel , Service support , Discharge Plan Triage Chief Complaint: Back ED Provider: [facility] Dx/Rx/DC Orders Clinical Impression: Acute lumbar myofascial strain, Acute left lumbar radiculopathy Instructions: ED Back Sprain/Strain, ED Sciatica Prescriptions: New cyclobenzaprine 10 mg tablet 10 mg PO TID PRN (Reason: Muscle Spasm) Qty: 15 0RF ibuprofen 600 mg tablet 600 mg PO Q6H PRN PRN (Reason: pain) Qty: 20 0RF oxycodone-acetaminophen [Percocet] 5-325 mg tablet 1 tab PO Q6H PRN (Reason: pain) 3 Days Qty: 12 0RF No Action tizanidine 4 mg capsule 4 mg PO Q6H PRN (Reason: back spasms) Rx Instructions: do not exceed 3 doses per 24 hrs cholecalciferol (vitamin D3) 25 mcg (1,000 unit) capsule 75 mcg PO DAILY acetaminophen [Tylenol] 325 mg tablet 650 mg PO Q6H prednisone 20 mg tablet 20 mg PO BID Qty: 10 0RF [facility] [facility] [Primary Care Provider] - 1-2 Weeks Activity Restrictions/Additional Instructions: [facility] to [facility] your [facility]. I have included a copy of your CT results. Print Language: Azeri Disposition Disposition: Home, Self Care Discharge Date/Time: 07/27/24 14:56
[2024-07-27] MEDS: oxyCODONE 5 MG Tablet 10 MG PO (12:51)
[2024-07-27 14:13] VITALS: BP 132/76; PULSE 76; RESP 16; O2SAT 95
[2024-07-27 14:55] VITALS: BP 137/86; PULSE 67; RESP 16; TEMP 36.1; O2SAT 97
== END 2024-07-27 14:56 | disposition home or self-care (01) ==
PROVIDERS: Emergency Provider Emergency Medicine; Visit Provider Emergency Medicine
DX: S39.012A Strain of muscle, fascia and tendon of lower back, initial encounter (principal); M54.16 Radiculopathy, lumbar region; X50.0XXA Overexertion from strenuous movement or load, initial encounter; Y93.89 Activity, other specified; Y92.89 Other specified places as the place of occurrence of the external cause; G47.30 Sleep apnea, unspecified; Z99.89 Dependence on other enabling machines and devices; F17.210 Nicotine dependence, cigarettes, uncomplicated
CPT/HCPCS: 72131; 99282

== ENCOUNTER 2024-11-07 14:03 | Emergency (ER) | payer OTHER, SELFPAY ==
[2024-11-07 14:04] VITALS: BP 162/100; PULSE 80; RESP 18; TEMP 37.2; O2SAT 98; BMI 44.4
--- NOTE | 2024-11-07 15:26 | ED.RN ---
called to go to a room not able to locate pt
--- NOTE | 2024-11-07 16:35 | ED.RN ---
called for a room unable to locate pt
--- NOTE | 2024-11-07 17:03 | ED.RN ---
pt has not returned to waiting area. [facility]BS
== END 2024-11-07 16:35 | disposition left against medical advice (07) ==
LOC: ED 17:18
DX: K08.89 Other specified disorders of teeth and supporting structures (principal)

== ENCOUNTER 2025-01-22 12:09 | Emergency (ER) | payer OTHER, SELFPAY ==
[2025-01-22 12:10] VITALS: BP 154/91; PULSE 87; RESP 19; TEMP 36.7; O2SAT 98
--- NOTE | 2025-01-22 12:28 | EX.ED.DYSGE1 ---
HPI History of Present Illness Chief Complaint: General Illness Informant: patient Narrative Narrative: 40-year-old male presenting to the emergency room with a 1 day history of not feeling well. Patient states that yesterday he suddenly developed body aches slightly sore throat runny nose cough. He states that he had a fever last night before bed. He did not take anything for it. This morning he felt cool and clammy and had emesis. He also notes some diarrhea. He denies any fever today. He states he feels dehydrated. He notes multiple sick contacts at home. He states he has a history of hypertension. [facility] Medical History Depression Osteoporosis Smoker CPAP (continuous positive airway pressure) dependence Sleep apnea Asthma Chest pain Migraines Right shoulder strain Strain of right trapezius muscle Lumbar strain Chronic neck and back pain Limb weakness Knee pain Fatigue Shoulder pain Shortness of breath Home Medications ?Medication ?Instructions ?Recorded ?Last Taken ?Type acetaminophen 325 mg tablet 650 mg PO Q6H 01/15/24 Unknown History (Tylenol) cholecalciferol (vitamin D3) 25 75 mcg PO DAILY 01/15/24 Unknown History mcg (1,000 unit) capsule tizanidine 4 mg capsule 4 mg PO Q6H PRN back spasms 01/15/24 Unknown History prednisone 20 mg tablet 20 mg PO BID #10 tabs 05/20/24 Unknown Rx cyclobenzaprine 10 mg tablet 10 mg PO TID PRN Muscle Spasm #15 07/27/24 Unknown Rx TABLETS ibuprofen 600 mg tablet 600 mg PO Q6H PRN PRN pain #20 07/27/24 Unknown Rx TABLETS oxycodone-acetaminophen 5 mg-325 1 tab PO Q6H PRN pain 3 days #12 07/27/24 Unknown Rx mg tablet (Percocet) tabs ondansetron 4 mg disintegrating 4 mg PO Q6H PRN PRN Nausea #15 tabs 01/22/25 Unknown Rx tablet Allergy/AdvReac Type Severity Reaction Status Date / Time Penicillins Allergy Mild Swelling Verified 01/22/25 12:10 Surgical History Previous back surgery History of embolic filter insertion H/O knee surgery Social History Smoking Status: Current every day smoker tobacco type: cigarettes alcohol intake: never ROS ROS ED Constitutional Constitutional ED: Reports chills, fever(s), subjective and sweats; Denies weight loss Eyes Eyes: Denies change in vision or diplopia ENT ENT ED: Reports rhinorrhea and sore throat; Denies ear pain Cardiovascular Cardiovascular: Denies chest pain, orthopnea, palpitations or racing heartbeat Respiratory/Chest Respiratory/Chest: Reports cough; Denies dyspnea or orthopnea Gastrointestinal Gastrointestinal: Reports diarrhea, nausea and vomiting; Denies abdominal pain Genitourinary Genitourinary ED: Denies dysuria, hematuria or urinary frequency Musculoskeletal Musculoskeletal: Reports myalgias; Denies arthralgias or neck pain Integumentary Denies abscess or rash Neurologic Neurologic: Denies headache(s) or weakness Psychiatric Psychiatric: Denies anxiety, depression, suicidal ideation or suicidal thoughts Endocrine Endocrinology: Denies polydipsia, polyphagia or polyuria Allergic/Immunologic Allergic/Immunologic ED: Denies mouth swelling, tongue swelling or urticaria EXAM Physical Exam Const Vital Signs: 01/22/25 12:10 01/22/25 14:10 Temperature 98.1 F 97.8 F Temperature Source Oral Pulse Rate 87 64 Respiratory Rate 19 H 18 Blood Pressure 154/91 H 143/78 H Blood Pressure Mean 112 99 Pulse Ox 98 99 Oxygen Delivery Method Room Air Positive well nourished, well developed and obese General Appearance ED: well developed and NAD Nutritional Appearance: obese HEENT Reports normocephalic, head/scalp atraumatic and moist mucous membranes HEENT Narrative: Turbinate edema clear rhinorrhea. Eyes PERRL and EOMs intact bilaterally Neck no lymphadenopathy, supple and no JVD Resp normal respiratory effort and clear to auscultation bilaterally Resp Narrative: Nonproductive cough Cardio regular rate, regular rhythm and no murmurs GI normal to inspection, nondistended, normoactive bowel sounds and non-tender Palpation: soft Back/Spine no CVA tenderness and normal ROM Extremity normal to inspection General Extremety ED: Negative for edema General Extremity: Negative for edema Neuro oriented x3 and CN's II-XII intact bilaterally Sensorium / Orientation: alert Motor Exam: strength 5/5 throughout Psych mental status grossly normal Mood & Affect: Negative for depressed or tearful Skin no rashes or lesions noted and no wounds MDM MDM MDM Narrative Medical decision making narrative: Differential diagnosis includes but not limited to viral syndrome/URI hydration gastroenteritis bronchitis pneumonia bronchospasm Patient blood work strain is negative. COVID influenza and RSV swabs were negative. Patient received IV fluids and Zofran. He also received a dose of Toradol. Clinically I think is more of a viral infection probably viral gastroenteritis. We discharged home with a prescription for Zofran and continued oral hydration return if worsening or concerns History & Record Review Discussion w/independent historian: Patient Lab Data Attestation: I reviewed the patient's lab results. Labs: Laboratory Results - last 24 hr 01/22/25 12:43 WBC 5.9 RBC 4.30 L Hgb 12.9 L Hct 38.4 L MCV 89.3 MCH 30.0 MCHC 33.6 RDW Std Deviation 44.5 H RDW Coeff of Isreal 13.7 Plt Count 207 MPV 11.3 Immature Gran % (Auto) 0.200 Neut % (Auto) 50.7 Lymph % (Auto) 31.7 [place] % (Auto) 9.9 Eos % (Auto) 6.5 H Baso % (Auto) 1.0 Absolute Neuts (auto) 3.0 Absolute Lymphs (auto) 1.86 Nucleated RBC % 0 Sodium 137 Potassium 4.1 Chloride 103 Carbon Dioxide 26.0 Anion Gap 7 BUN 11 Creatinine 0.97 Est GFR (MDRD) Non-Af 100 BUN/Creatinine Ratio 11.7 Glucose 81 Calcium 8.8 Total Bilirubin 0.21 AST 24 ALT 29 Alkaline Phosphatase 62 Total Protein 6.6 Albumin 3.9 Globulin 2.7 Albumin/Globulin Ratio 1.4 Discharge Plan Triage Chief Complaint: General Illness ED Provider: Zach San Dx/Rx/DC Orders Clinical Impression: Gastroenteritis Instructions: Viral Gastroenteritis Prescriptions: New ondansetron 4 mg tablet,disintegrating 4 mg PO Q6H PRN PRN (Reason: Nausea) Qty: 15 0RF No Action tizanidine 4 mg capsule 4 mg PO Q6H PRN (Reason: back spasms) Rx Instructions: do not exceed 3 doses per 24 hrs cholecalciferol (vitamin D3) 25 mcg (1,000 unit) capsule 75 mcg PO DAILY acetaminophen [Tylenol] 325 mg tablet 650 mg PO Q6H prednisone 20 mg tablet 20 mg PO BID Qty: 10 0RF cyclobenzaprine 10 mg tablet 10 mg PO TID PRN (Reason: Muscle Spasm) Qty: 15 0RF ibuprofen 600 mg tablet 600 mg PO Q6H PRN PRN (Reason: pain) Qty: 20 0RF oxycodone-acetaminophen [Percocet] 5-325 mg tablet 1 tab PO Q6H PRN (Reason: pain) 3 Days Qty: 12 0RF [facility] Care Provider[facility] [facility]errals[facility] [Primary [facility] Provider] - As Needed Print Language: Hebrew Disposition Disposition: Home, Self Care Discharge Date/Time: 01/22/25 14:12
[2025-01-22] MEDS: 0.9% Normal Saline (1000mL) 1,000 ML 1000 ML IV (12:48)
[2025-01-22] MEDS: Ketorolac 30 MG/ML Syringe IV (12:55)
[2025-01-22] MEDS: Ondansetron 4 MG/2 ML Vial IV (12:55)
[2025-01-22 12:57] LABS: Absolute Lymphocyte Count 1.86 X10^3/uL (0.83-4.51); Basophil# 0.06 X10^3/uL; Eosinophil# 0.38 X10^3/uL; Eosinophils% 6.5 % (0-5); Hematocrit 38.4 % (40-54); Hemoglobin 12.9 g/dL (13.0-16.5); Lymphocyte # 1.86 X10^3/ul (0.83-4.51); Lymphocyte % 31.7 % (19-41); Mean Corp Hgb Conc 33.6 g/dL (32-36); Mean Corpuscular Volume 89.3 fL (80-94); Mean Platelet Vol. 11.3 fl (6.2-12.0); Monocyte# 0.58 X10^3/uL; Monocyte% 9.9 % (0-10); NRBC Flagged by Analyzer 0 % (0-5); Neutrophil # 2.97 X10^3/uL (2.7-7.7); Neutrophil % 50.7 % (47-70); Platelet Count 207 K/mm3 (150-450); RBC Distribution Width CV 13.7 % (11.6-14.6); RBC Distribution Width SD 44.5 fl (35.1-43.9); White Blood Count 5.9 K/mm3 (4.4-11.0)
[2025-01-22 13:17] LABS: ALB/GLOB Ratio 1.4 RATIO (0.9-2.4); AST(SGOT) 24 U/L (<=37); Alanine Aminotransfer ALT/SGPT 29 U/L (<=46); Albumin, Serum 3.9 g/dL (3.5-5.0); Alkaline Phosphatase 62 U/L (40-129); Anion Gap 7 (5-15); BUN 11 mg/dL (4-19); BUN/Creat Ratio 11.7 RATIO (10-20); Calcium,Total 8.8 mg/dL (7.6-11.0); Chloride 103 mmol/L (98-108); Creatinine, Serum 0.97 mg/dL (0.70-1.20); EST Glomerular Filtration Rate 100 (>60); Globulin 2.7 g/dL (2.2-4.2); Glucose 81 mg/dL (70-99); Potassium 4.1 mmol/L (3.3-5.1); Protein, Total 6.6 g/dL (5.9-8.4); Sodium Level 137 mmol/L (133-145); Total Bilirubin 0.21 mg/dL (0.00-1.30)
[2025-01-22 14:10] VITALS: BP 143/78; PULSE 64; RESP 18; TEMP 36.6; O2SAT 99
== END 2025-01-22 14:12 | disposition home or self-care (01) ==
PROVIDERS: Emergency Provider Emergency Medicine; Visit Provider Emergency Medicine
DX: K52.9 Noninfective gastroenteritis and colitis, unspecified (principal); F17.210 Nicotine dependence, cigarettes, uncomplicated
CPT/HCPCS: 96361; 96374; 96375; 99283

== ENCOUNTER 2025-02-15 17:22 | Emergency (ER) | payer OTHER, SELFPAY ==
[2025-02-15 17:24] VITALS: BP 202/105; PULSE 90; RESP 18; TEMP 36.3; O2SAT 100
[2025-02-15 17:45] VITALS: BMI 48.4
[2025-02-15 17:47] VITALS: BP 172/88; PULSE 83
--- NOTE | 2025-02-15 17:55 | EKG12_ITS ---
Test Reason : EDEMA Blood Pressure : */* mmHG Vent. Rate : 82 BPM Atrial Rate : 82 BPM P-R Int : 178 ms QRS Dur : 108 ms QT Int : 364 ms P-R-T Axes : 43 51 42 degrees QTcB Int : 425 ms Normal sinus rhythm Normal ECG Confirmed by Reji Reece ([id number]), film or videotape editor VERONICA AGUILAR ([id number]) on 02/18/2025 12:06:18 PM Referred By: KATERYNA Confirmed By: Reji Reece
--- NOTE | 2025-02-15 17:56 | EDS_ITS ---
HPI History of Present Illness Chief Complaint: Edema Informant: patient and family Onset/Context/Timing Onset: Weeks Context: Gradual Onset Timing: Continuous Current Severity: Mild Maximum Severity: Mild Narrative Narrative: 40-year-old male history of sleep apnea. States that over the last 2 weeks he has developed lower extremity swelling in both legs. Denies chest pain or shortness of breath. Denies vomiting or diarrhea or fever. No dysuria. He still urinating. He is concerned because there is a family history of diabetes in both his parents and hypertension. He is currently treated for neither. Prior similar symptoms: No Recent Illness/Hospitalization: No [facility] Medical History Depression Osteoporosis Smoker CPAP (continuous positive airway pressure) dependence Sleep apnea Asthma Chest pain Migraines Right shoulder strain Strain of right trapezius muscle Lumbar strain Chronic neck and back pain Limb weakness Knee pain Fatigue Shoulder pain Shortness of breath Home Medications ?Medication ?Instructions ?Recorded ?Last Taken ?Type acetaminophen 325 mg tablet 650 mg PO Q6H 01/15/24 Unk nown History (Tylenol) cholecalciferol (vitamin D3) 25 75 mcg PO DAILY Unknown History mcg (1,000 unit) capsule tizanidine 4 mg capsule 4 mg PO Q6H PRN back spasms 01/15/24 Unknown History prednisone 20 mg tablet 20 mg PO BID #10 tabs Unknown Rx cyclobenzaprine 10 mg tablet 10 mg PO TID PRN Muscle S pasm #15 07/27/24 Unknown Rx TABLETS ibuprofen 600 mg tablet 600 mg PO Q6H PRN PRN pain # 20 07/27/24 Unknown Rx TABLETS oxycodone-acetaminophen 5 mg-325 1 tab PO Q6H PRN pain 3 days #12 07/27/24 Unknown Rx mg tablet (Percocet) tabs ondansetron 4 mg disintegrating 4 mg PO Q6H PRN PRN Na usea #15 tabs 01/22/25 Unknown Rx tablet hydrochlorothiazide 12.5 mg tablet 12.5 mg PO DAILY 30 days #30 tabs 02/15/25 Unknown Rx Allergy/AdvReac Type Severity Reaction Status Date / Time Penicillins Allergy Mild Swelling Verified 02/15/25 17:23 Surgical History Previous back surgery History of embolic filter insertion H/O knee surgery Social History Smoking Status: Current every day smoker tobacco type: cigarettes alcohol intake: never ROS ROS ED ROS Narrative Bilateral lower extremity swelling. Constitutional Constitutional ED: Denies chills or fever(s) Eyes Eyes: Denies blurry vision ENT ENT ED: Denies ear pain Cardiovascular Cardiovascular: Denies chest pain Respiratory/Chest Respiratory/Chest: Denies cough or dyspnea Gastrointestinal Gastrointestinal: Denies abdominal pain Genitourinary Genitourinary ED: Denies dysuria or hematuria Musculoskeletal Musculoskeletal: Denies arthralgias Integumentary Denies abscess Neurologic Neurologic: Reports headache(s) Psychiatric Psychiatric: Denies anxiety or depression Hematologic/Lymphatic Hematologic/Lymphatic: Reports none Allergic/Immunologic Allergic/Immunologic ED: Denies mouth swelling, tongue swelling or urticaria EXAM Physical Exam Narrative Exam Narrative: 40-year-old male sitting upright in bed. He is a very large gentleman 6 foot 6 and over 400 pounds. I believe it is his daughter at bedside. Vital signs initial blood pressure 202/105 pulse ox 100% on room air. He is afebrile. He is in no distress. H EENT exam pupils round reactive light. Moist with membranes. Neck nontender no JVD. No lymphadenopathy. Lungs clear to auscultation bilaterally. Heart regular rhythm rate about 90 no murmur. Chest wall and ribs nontender. Abdomen soft nontender. Moving all 4 extremities. 5 out of 5 distribution manager strength. Dorsi plantarflexion intact. He does have 1+ pitting edema both lower extremities to his knees bilaterally. Neurologically he is awake and alert. Answering questions following commands. Const Vital Signs: 02/15/25 17:24 02/15/25 17:47 02/15/25 17:47 Temperature 97.3 F L Temperature Source Temporal Pulse Rate 90 83 Respiratory Rate 18 Respiratory Effort Normal Non-Labored Blood Pressure 202/105 H 172/88 H Blood Pressure Mean 137 116 Pulse Ox 100 Oxygen Delivery Method Room Air 02/15/25 18:12 02/15/25 19:00 Temperature Temperature Source Pulse Rate 75 Respiratory Rate 18 Respiratory Effort Blood Pressure 182/94 H Blood Pressure Mean 123 Pulse Ox 99 Oxygen Delivery Method Room Air Room Air Positive well nourished and well developed; Negative for cachectic, contractures or unkempt General Appearance ED: well developed and NAD; Negative for unkempt, cachectic, contractures, cyanotic, diaphoretic or pallor Nutritional Appearance: Negative for cachectic HEENT Reports moist mucous membranes Negative for trauma or tenderness Eyes PERRL and EOMs intact bilaterally General Eye ED: Negative for pale conjunctiva or scleral icterus Neck no lymphadenopathy, supple and no JVD General: Negative for tenderness Chest Wall inspection of chest normal and palpation of chest normal Resp normal respiratory effort and clear to auscultation bilaterally Cardio regular rate, regular rhythm, S1 normal heart sound, S2 normal heart sound and no murmurs GI normal to inspection, nondistended, normoactive bowel sounds, non-tender, non- distended and no masses Palpation: soft; Negative for tender, guarding or rebound tenderness present Back/Spine no CVA tenderness Extremity Negative for normal to inspection Extremity Narrative: Bilateral lower extremity edema. 1+. Nontender. No cords. Normal strength. General Extremety ED: Yes edema; Negative for tenderness General Extremity: edema Neuro oriented x3 and CN's II-XII intact bilaterally Sensorium / Orientation: alert Motor Exam: strength 5/5 throughout Psych mental status grossly normal Appearance: Negative for unkempt Skin no rashes or lesions noted and no wounds General Skin Exam: Negative for jaundice or pallor MDM MDM MDM Narrative Medical decision making narrative: 40-year-old male with concern for bilateral lower extremity edema may be secondary to CHF, hypertension, renal disease versus other etiologies. Screening labs will be obtained along with the EKG and chest x-ray. Repeat exam at 8 PM patient doing well. I do lengthy discussion with both he and his daughter. Will get started on a blood pressure medication hydrochlorothiazide 12.5 mg taken in the morning. They understand that dose may need to be adjusted. Follow-up with a local physician or [facility] [place] for further evaluation and determination if he is on the right blood pressure medication in the right dose. Start exercising and focus on some weight loss. History & Record Review Discussion w/independent historian: Patient Additional record(s) reviewed:: Prior inpatient record, Prior outpatient record, Prior ED visit and Prior labs Lab Data Attestation: I reviewed the patient's lab results. Lab results narrative: CBC shows a normal white count 8. H&H 12.6 and 37. Platelets 263. Sodium 139. Gap 8. Normal BUN of 11 creatinine of 1. Glucose 127. Troponin 11. BNP is 56. Labs: Laboratory Results - last 24 hr 02/15/25 18:03 WBC 8.6 RBC 4.19 L Hgb 12.6 L Hct 37.6 L MCV 89.7 MCH 30.1 MCHC 33.5 RDW Std Deviation 44.8 H RDW Coeff of Isreal 13.8 Plt Count 263 MPV 11.3 Immature Gran % (Auto) 0.200 Neut % (Auto) 57.8 Lymph % (Auto) 29.8 [place] % (Auto) 6.6 Eos % (Auto) 5.0 Baso % (Auto) 0.6 Absolute Neuts (auto) 5.0 Absolute Lymphs (auto) 2.57 Nucleated RBC % 0 Sodium 139 Potassium 4.0 Chloride 105 Carbon Dioxide 25.4 Anion Gap 8 BUN 11 Creatinine 1.01 Estim Creat Clear Calc 176.32 Est GFR (MDRD) Non-Af 95 BUN/Creatinine Ratio 10.7 Glucose 127 H Calcium 8.9 Troponin T High Sens 11 NT pro BNP II 56 Radiography Chest X-Ray - ED: 2 View, Read by ED Physician, Normal, Heart, Mediastinum, Bony Structures and Chronic Changes Diagnostic Testing: Clinical Impression(s) from Imaging Studies Chest X-Ray 02/15/25 18:15 IMPRESSION: No active cardiopulmonary disease Mild cardiac enlargement. Reading Location: [facility] Chest x-ray, 2 views, AP and lateral, shows normal cardiac silhouette. No pneumonia. No effusions. Rhythm Strip Rhythm Strip: Sinus Rhythm Rate: 82 Ectopy: None EKG Initial EKG: Attestation: I personally reviewed and interpreted this EKG as follows: Interpretation: Sinus Rhythm and No Acute Injury Pattern Comments: Normal sinus rhythm rate 82 no acute signs of DE nor ischemia. Discharge Plan Triage Chief Complaint: Edema ED Provider: Jony Francis Dx/Rx/DC Orders Clinical Impression: HTN (hypertension), Edema, peripheral Instructions: ED Peripheral Edema, Bilateral, ED High Blood Pressure Hypertension Prescriptions: New hydrochlorothiazide 12.5 mg tablet 12.5 mg PO DAILY 30 Days Qty: 30 0RF No Action tizanidine 4 mg capsule 4 mg PO Q6H PRN (Reason: back spasms) Rx Instructions: do not exceed 3 doses per 24 hrs cholecalciferol (vitamin D3) 25 mcg (1,000 unit) capsule 75 mcg PO DAILY acetaminophen [Tylenol] 325 mg tablet 650 mg PO Q6H prednisone 20 mg tablet 20 mg PO BID Qty: 10 0RF cyclobenzaprine 10 mg tablet 10 mg PO TID PRN (Reason: Muscle Spasm) Qty: 15 0RF ibuprofen 600 mg tablet 600 mg PO Q6H PRN PRN (Reason: pain) Qty: 20 0RF oxycodone-acetaminophen [Percocet] 5-325 mg tablet 1 tab PO Q6H PRN (Reason: pain) 3 Days Qty: 12 0RF ondansetron 4 mg tablet,disintegrating 4 mg PO Q6H PRN PRN (Reason: Nausea) Qty: 15 0RF Primary Care Provider: [facility] Referrals: Khalif Doyle MD [Med Staff - [employer] Sales Representative] - As soon as possible [facility] [Primary Care Provider] - As soon as possible Activity Restrictions/Additional Instructions: Your labs chest x-ray and EKG look good. I think this is secondary to undiagnosed previously high blood pressure. We will start you on a blood pressure medication called hydrochlorothiazide. I would take in the morning because going to make you pee. That should help decrease the swelling in your legs and bring down your blood pressure. Check your blood pressure in the morning in the evening. If it is running low meaning below 100 we may have to stop the medication or change it. If it continues to run high they may have to adjusted and increase the dose of the medication. Follow-up with either your [place] doctor or a local physician for further evaluation of this. You may also need other testing like an echocardiogram which is an ultrasound your heart to make sure that is not the cause of the swelling in your legs. Print Language: Yakut Disposition Disposition: Home, Self Care
--- NOTE | 2025-02-15 18:15 | RAD_ITS ---
PROCEDURE: CHEST PA AND LATERAL 02/15/2025 REASON FOR EXAM: CHEST PAIN TECHNIQUE: Frontal and lateral views of the chest. COMPARISON: 05/20/2024 FINDINGS: Lungs: Lungs clear of pneumonia and congestion. Pleura: No pleural effusions, thickening, or pneumothorax. Heart: Mild cardiac enlargement. Mediastinum/Mary: Unremarkable. Great vessels: Unremarkable. Bones/soft tissues: Unremarkable. Cardiac monitoring leads overlie the chest wall. RAD/Chest PA and Lateral IMPRESSION: No active cardiopulmonary disease Mild cardiac enlargement. Reading Location: [facility]
[2025-02-15 18:16] LABS: Absolute Lymphocyte Count 2.57 X10^3/uL (0.83-4.51); Basophil# 0.05 X10^3/uL; Basophil% 0.6 % (0-1); Eosinophil# 0.43 X10^3/uL; Hematocrit 37.6 % (40-54); Hemoglobin 12.6 g/dL (13.0-16.5); Lymphocyte # 2.57 X10^3/ul (0.83-4.51); Lymphocyte % 29.8 % (19-41); Mean Corp Hgb Conc 33.5 g/dL (32-36); Mean Corpuscular Hgb 30.1 pg (27.0-32.0); Mean Corpuscular Volume 89.7 fL (80-94); Mean Platelet Vol. 11.3 fl (6.2-12.0); Monocyte# 0.57 X10^3/uL; Monocyte% 6.6 % (0-10); NRBC Flagged by Analyzer 0 % (0-5); Neutrophil # 4.97 X10^3/uL (2.7-7.7); Neutrophil % 57.8 % (47-70); Platelet Count 263 K/mm3 (150-450); RBC Distribution Width CV 13.8 % (11.6-14.6); RBC Distribution Width SD 44.8 fl (35.1-43.9); Red Blood Count 4.19 M/mm3 (4.6-6.2); White Blood Count 8.6 K/mm3 (4.4-11.0)
[2025-02-15 18:45] LABS: Anion Gap 8 (5-15); BUN 11 mg/dL (4-19); BUN/Creat Ratio 10.7 RATIO (10-20); Calcium,Total 8.9 mg/dL (7.6-11.0); Carbon Dioxide 25.4 mmol/L (21.0-32.0); Chloride 105 mmol/L (98-108); Creatinine, Serum 1.01 mg/dL (0.70-1.20); EST Glomerular Filtration Rate 95 (>60); Estimated Creatinine Clearance 176.32 ml/min (50-250); Glucose 127 mg/dL (70-99); Pro- Brain NATRIURETIC PEPTIDE 56 pg/mL (<=450); Sodium Level 139 mmol/L (133-145); Troponin T High Sensitivity 11 ng/L (<=22)
[2025-02-15 19:00] VITALS: BP 182/94; PULSE 75; RESP 18; O2SAT 99
[2025-02-15 20:13] VITALS: BP 182/94; PULSE 75; RESP 18; TEMP 36.3; O2SAT 99
== END 2025-02-15 20:17 | disposition home or self-care (01) ==
PROVIDERS: Emergency Provider Emergency Medicine; Visit Provider Emergency Medicine
DX: R60.9 Edema, unspecified (principal); G47.30 Sleep apnea, unspecified; Z99.89 Dependence on other enabling machines and devices; F17.210 Nicotine dependence, cigarettes, uncomplicated; I10 Essential (primary) hypertension
CPT/HCPCS: 71046; 80048; 83880; 84484; 85025; 93005; 99284; A4216

== ENCOUNTER 2025-05-20 19:28 | Emergency (ER) | payer OTHER, SELFPAY ==
[2025-05-20 19:29] VITALS: BP 161/103; PULSE 95; RESP 18; TEMP 37; O2SAT 99; BMI 44.1
--- OUTSIDE RECORDS SUMMARY | 2025-05-20 19:57 | XMS RPT_ITS | CCD ---
Author Organization [facility] Care Team Providers Care Isotope Technician Name Role Phone PHYSICIAN, NONE Primary Care Physician Unavail WOO Beth DO Attending Unavailable PHYSICIAN, NONE Primary Care Unavailable YESI Young Attending Provider [place] Primary Care Provider Unavailakbar e Provider, Ed Physician Attending Provider Carlos sykes Provider, Ed Physician Emergency Provider Dr. Zach Suarez DO Emergency Provider Dr. Zach San DO Attending Provider Tito HIGGINBOTHAM, Dr. Borges Emergency Provider Zach San Attending [facility] [place] Primary Care [facility] [place] Primary Care Unavailable Zach San Attending Unavailable Jony Francis Attending [facility] [facility] Primary Care Unavailable Quoc House Attending [facility] [place] Primary Care Unavailable Provider, Ed Physician Attending [facility], [place] Primary Care Unavailable Wes Altman Attending Unavailabl e Allergies Allergy Classification Reported Allergen(s) Allergy Type Date of Onset Reaction(s) Facility (1 source) Penicillin; Translations: [penicillin] Drug Allergy [facility] (6 sources) Penicillins Allergy to substance 06-19-2023 Swelling [facility] (1 source) Penicillins Drug allergy (disorder) 02-15-2025 [facility] Repository Medications Current Medications Medication Drug Class(es) Dates Sig (Normalized) Sig (Original) acetaminophen 325 mg oral tablet (3 sources) Start: 01-15-2024 take 2 tablets by mouth every six hours Acetaminophen (Tylenol) 325 mg tablet Active 650 mg PO EVERY 6 HOURS January 15, 2024 12:00am acetaminophen 325 mg / oxyCODONE hydrochloride 5 mg oral tablet (2 sources) Opioid Agonist Start: 07-27-2024 take 1 tablet by mouth every six hours as needed for pain Oxycodone-Acetaminop hen (Percocet) 5-325 mg tablet Active 1 {tbl} PO EVERY 6 HOURS as needed for pain 09 14July 27, 2024 cholecalciferol 0.025 mg oral capsule (3 sources) Vitamin D Start: 01-15-2024 take 1 capsule by mouth once daily Cholecalciferol (Vitamin D3) 25 mcg (1,000 unit) capsule Active 75 ug PO DAILY January 15, 2024 12:00am cyclobenzaprine hydrochloride 10 mg oral tablet (3 sources) Muscle Relaxant Start: 07-27-2024 take 1 tablet by mouth three times daily as needed for muscle spasms Cyclobenzaprine 10 mg tablet Active 10 mg PO THREE TIMES A DAY as needed for Muscle Spasm July 27, 2024 12:00am Start: 03-18-2023 End: 03-25-2023 cyclobenzaprine 10 mg oral t ablet Dose : 10 mg = 1 tab(s), Oral, TID, X 7 day(s), # 21 tab(s), 0 Refill(s), 03/25/23 14:04:00 EDT Start Date: 03/18/23 Stop Date: 03/25/23 Status: Ordered hydroCHLOROthiazide 12.5 mg oral tablet (1 source) Thiazide Diuretic Start: 02-15-2025 take 1 tablet by mouth once daily Hydrochlorothiazide 12.5 mg tablet Active 12.5 mg PO DAILY February 15, 2025 12:00am ibuprofen 600 mg oral tablet (2 sources) Nonsteroidal Anti-inflammator y Drug Start: 07-27-2024 take 1 tablet by mouth every six hours as needed for pain Ibuprofen 600 mg tablet Active 600 mg PO EVERY 6 HOURS NEEDED as needed for pain July 27, 2024 12:00am Nirmatrelvir-Ritonavir (2 sources) Start: 06-20-2023 Nirmatrelvir-Ritonavir (Paxlovid) 300 mg (150 mg x 2)-100 mg tablets,dose pack Active 0 PO .COMPLEX June 19, 2023 11:00pm take TWO 150 mg tablets of nirmatrelvir with ONE 100 mg tablet of ritonavir twice daily for 5 days Start: 06-20-2023 Nirmatrelvir-R itonavir (Paxlovid) 300 mg (150 mg x 2)-100 mg tablets,dose pack Active 0 PO .COMPLEX June 20, 2023 12:00am take TWO 150 mg tablets of nirmatrelvir with ONE 100 mg tablet of ritonavir twice daily for 5 days ondansetron 4 mg disintegrating oral tablet (2 sources) Serotonin-3 Receptor Antagonist Start: 01-22-2025 take 1 tablet by mouth every six hours as needed for nausea Ondansetron 4 mg tablet,disintegrating Active 4 mg PO EVERY 6 HOURS NEEDED as needed for Nausea January 22, 2025 12:00am predniSONE 20 mg oral tablet (2 sources) Start: 05-20-2024 take 1 tablet by mouth twice daily Prednisone 20 mg tablet Active 20 mg PO TWICE A DAY May 20, 2024 12:00am tiZANidine 4 mg oral capsule (3 sources) Central alpha-2 Adrenergic Agonist Start: 01-15-2024 take 3 capsules by mouth every twenty-four hours as needed for muscle spasms Tizanidine 4 mg capsule Active 4 mg PO EVERY 6 HOURS as needed for back spasms January 15, 2024 12:00am do not exceed 3 doses per 24 hrs Completed/Discontinued Medications Medication Drug Class(es) Dates Sig (Normalized) Sig (Original) clindamycin 300 mg oral capsule (4 sources) Lincosamide Antibacterial Start: 11-22-2023 End: 01-15-2024 take 1 capsule by mouth every six hours Clindamycin Hcl (Cleocin Hcl) 300 mg capsule Discontinued 300 mg PO EVERY 6 HOURS November 22, 2023 1:00am January 15, 2024 9:20pm naproxen 500 mg oral tablet (4 sources) Nonsteroidal Anti-inflammatory Drug Start: 11-22-2023 End: 01-15-2024 take 1 tablet by mouth twice daily as needed for pain Naproxen (Naprosyn) 500 mg tablet Discontinued 500 mg PO TWICE A DAY as needed for pain November 22, 2023 1:00am January 15, 2024 9:20pm Nirmatrelvir-Riton avir (Paxlovid) 300 mg (150 mg x 2)-100 mg tablets,dose pack (4 sources) Start: 06-20-2023 End: 11-22-2023 Nirmatrelvir-Riton avir (Paxlovid) 300 mg (150 mg x 2)-100 mg tablets,dose pack Discontinued 0 PO .COMPLEX June 20, 2023 12:00am November 22, 2023 7:04pm take TWO 150 mg tablets of nirmatrelvir with ONE 100 mg tablet of ritonavir twice daily for 5 days Start: 06-20-2023 End: 11-22-2023 Nirmatrelvir-Ritonavir (Paxl ovid) 300 mg (150 mg x 2)-100 mg tablets,dose pack Discontinued 0 PO .COMPLEX June 19, 2023 11:00pm November 22, 2023 6:04pm take TWO 150 mg tablets of nirmatrelvir with ONE 100 mg tablet of ritonavir twice daily for 5 days Problems Active Problems Problem Classification Problem Date Documented Date Episodic/Chronic Asthma (2 sources) Asthmatic bronchitis; Translations: [Unspecified asthma, uncomplicated] 05-28-2024 Chronic Disorders of teeth and jaw (5 sources) Dental abscess; Translations: [Periapical abscess without sinus] Onset: 11-27-2024 11-22-2023 Episodic Essential hypertension (6 sources) Hypertensive disorder; Translations: [Essential (primary) hypertension] 03-18-2023 Chronic Noninfectious gastroenteritis (3 sources) Gastroenteritis; Translations: [Noninfective gastroenteritis and colitis, unspecified] Onset: 01-25-2025 01-22-2025 Episodic Other ear and sense organ disorders (5 sources) Otalgia, right ear; Translations: [Right ear pain] 10-21-2023 Episodic Residual codes; unclassified (1 source) Peripheral edema; Translations: [Localized edema] 02-15-2025 Episodic Residual codes; unclassified (1 source) Edema, unspecified; Translations: [Edema, unspecified] Onset: 02-18-2025 Episodic Spondylosis; intervertebral disc disorders; other back problems (2 sources) Lumbar radiculopathy; Translations: [Radiculopathy, lumbar region] 08-04-2024 Episodic Viral infection (6 sources) Disease caused by 2019-nCoV; Translations: [COVID-19] 06-20-2023 Episodic Past or Other Problems Problem Classification Problem Date Documented Da te Episodic/Chronic Other lower respiratory disease (1 source) Shortness of breath; Translations: [Shortness of breath] Onset: 08-16-2024 Episodic Sprains and strains (20 sources) Strain of trapezius muscle; Translations: [Strain of other muscles, fascia and tendons at shoulder and upper arm level, right arm, initial encounter] Onset: 08-18-2024 03-18-2023 Episodic Results Test Name Value Interpretation Reference Range Facility 12 Lead EKGon 02-15-2025 12 Lead EKG [facility] [address] [place] [address] 12 Lead EKG 02/15/25 1805 MR#: [id number] Acct: [id number] Name: MANDA DENIS Rep #: [id number] : 1985 40 From: Manda Reece MD Attending Dr: Status: DEP ER Ordering Dr: Jony Francis MD Date: 02/15/25 Location: ED Sex: M AA Admitted: Test Reason : EDEMA Blood Pressure : */* mmHG Vent. Rate : 82 BPM Atrial Rate : 82 BPM P-R Int : 178 ms QRS Dur : 108 ms QT Int : 364 ms P-R-T Axes : 43 51 42 degrees QTcB Int : 425 ms Normal sinus rhythm Normal ECG Confirmed by Manda Reece ([id number]), commissioning editor VERONICA AGUILAR ([id number]) on 02/18/2025 12:06:18 PM Referred By: KATERYNA Confirmed By: Manda Reece 02/18/25 1206 Date Manda Reece MD CC: Dr. Jony Francis MD; [facility] Signed Normal [facility] Absolute neutrophil countOrd ered By: Jony Francis on 02-15-2025 Neutrophils (Bld) [#/Vol] 5.0 10*3/uL 2.0-7.7 [facility] Anion gap in Serum or Plasma Ordered By: Jony Francis on 02-15-2025 Anion gap [Moles/Vol] 8 mmol/L 02-24 [facility] BUN/creatinine ratioOrdered By: Jony Francis on 02-15-2025 Urea nitrogen/Creatinine [Mass ratio] 10.7 mg/mg - [facility] Basic Metabolic Profile (BMP )on 02-15-2025 BUN/CRE 10.7 RATIO Normal - [facility] Comment on above: Performed By: #### L 501.4021, L503.7505, L100.0100, L500.2500 #### [facility] [address] [place], [address] Calcium [Mass/Vol] 8.9 mg/dL Normal 7.6-11.0 [facility] Comment on above: Performed By: #### L 501.4021, L503.7505, L100.0100, L500.2500 #### [facility] [address] [place], [address] Chloride [Moles/Vol] 105 mmol/L Normal 98-108 [facility] Comment on above: Performed By: #### L 501.4021, L503.7505, L100.0100, L500.2500 #### [facility] [address] [place], [address] CO2 [Moles/Vol] 25.4 mmol/L Normal 21.0-32.0 [facility] Comment on above: Performed By: #### L 501.4021, L503.7505, L100.0100, L500.2500 #### [facility] [address] [place], [address] Creatinine [Mass/Vol] 1.01 mg/dL Normal 0.70-1.20 [facility] Comment on above: Performed By: #### L 501.4021, L503.7505, L100.0100, L500.2500 #### [facility] [address] [place], [address] ECRCL 176.32 ml/min Normal 50-250 [facility] Comment on above: Performed By: #### L 501.4021, L503.7505, L100.0100, L500.2500 #### [facility] [address] [place], [address] GAP 8 Normal 5-15 [facility] Comment on above: Performed By: #### L 501.4021, L503.7505, L100.0100, L500.2500 #### [facility] [address] [place], [address] GFR/1.73 sq M.predicted among non-blacks MDRD (S/P/Bld) [Vol rate/Area] 95 mL/min/{1.73_m2} Normal >60 [facility] Comment on above: Result Comment: mL/m in/1.73m2 CKD-EPI Creatinine Equation (2020) Performed By: #### L 501.4021, L503.7505, L100.0100, L500.2500 #### [facility] [address] [place], [address] Glucose [Mass/Vol] 127 mg/dL High 70-99 [facility] Comment on above: Performed By: #### L 501.4021, L503.7505, L100.0100, L500.2500 #### [facility] [address] [place], [address] Potassium [Moles/Vol] 4.0 mmol/L Normal 3.3-5.1 [facility] Comment on above: Performed By: #### L 501.4021, L503.7505, L100.0100, L500.2500 #### [facility] [address] [place], [address] Sodium [Moles/Vol] 139 mmol/L Normal 133-145 [facility] Comment on above: Performed By: #### L 501.4021, L503.7505, L100.0100, L500.2500 #### [facility] [address] [place], [address] Urea nitrogen [Mass/Vol] 11 mg/dL Normal 4-19 [facility] Comment on above: Performed By: #### L 501.4021, L503.7505, L100.0100, L500.2500 #### [facility] [address] [place], [address] Basophil percentageOrdered B y: Jony Francis on 02-15-2025 Basophils/100 WBC (Bld) 0.6 % 0-1 [facility] CBC W/Diff, Automatedon -2024 Absolute Lymph 2.57 X10 3/uL Normal 0.83-4.51 [facility] Comment on above: Performed By: #### L 501.4021, L503.7505, L100.0100, L500.2500 #### [facility] [address] [place], [address] Absolute Neut 5.0 X10 3/uL Normal 2.0-7.7 [facility] Comment on above: Performed By: #### L 501.4021, L503.7505, L100.0100, L500.2500 #### [facility] [address] [place], [address] Basophils/100 WBC (Bld) 0.6 % Normal 0-1 [facility] Comment on above: Performed By: #### L 501.4021, L503.7505, L100.0100, L500.2500 #### [facility] [address] [place], [address] Eosinophils/100 WBC (Bld) 5.0 % Normal 0-5 [facility] Comment on above: Performed By: #### L 501.4021, L503.7505, L100.0100, L500.2500 #### [facility] [address] [place], [address] Erythrocyte distribution width (RBC) [Ratio] 13.8 % Normal 11.6-14.6 [facility] Comment on above: Performed By: #### L 501.4021, L503.7505, L100.0100, L500.2500 #### [facility] [address] [place], [address] Hematocrit (Bld) [Volume fraction] 37.6 % Low 40-54 [facility] Comment on above: Performed By: #### L 501.4021, L503.7505, L100.0100, L500.2500 #### [facility] [address] [place], [address] Hemoglobin (Bld) [Mass/Vol] 12.6 g/dL Low 13.0-16.5 [facility] Comment on above: Performed By: #### L 501.4021, L503.7505, L100.0100, L500.2500 #### [facility] [address] [place], [address] IG% 0.200 Normal 0.0-0.9 [facility] Comment on above: Result Comment: IG% - Immature Granulocytes (promyelocytes, myelocytes and metamyelocytes) > 1% indicates that a LEFT SHIFT is Present. Performed By: #### L 501.4021, L503.7505, L100.0100, L500.2500 #### [facility] [address] [place], [address] Lymphocytes/100 WBC (Bld) 29.8 % Normal 19-41 [facility] Comment on above: Performed By: #### L 501.4021, L503.7505, L100.0100, L500.2500 #### [facility] [address] [place], [address] MCH (RBC) [Entitic mass] 30.1 pg Normal 27.0-32.0 [facility] Comment on above: Performed By: #### L 501.4021, L503.7505, L100.0100, L500.2500 #### [facility] [address] [place], [address] MCHC (RBC) [Mass/Vol] 33.5 g/dL Normal 32-36 [facility] Comment on above: Performed By: #### L 501.4021, L503.7505, L100.0100, L500.2500 #### [facility] [address] [place], [address] MCV (RBC) [Entitic vol] 89.7 fL Normal 80-94 [facility] Comment on above: Performed By: #### L 501.4021, L503.7505, L100.0100, L500.2500 #### [facility] [address] [place], [address] Monocytes/100 WBC (Bld) 6.6 % Normal 0-10 [facility] Comment on above: Performed By: #### L 501.4021, L503.7505, L100.0100, L500.2500 #### [facility] [address] [place], [address] Neutrophils/100 WBC (Bld) 57.8 % Normal 47-70 [facility] Comment on above: Performed By: #### L 501.4021, L503.7505, L100.0100, L500.2500 #### [facility] [address] [place], [address] Nucleated RBC (Bld) [#/Vol] 0 10*3/uL Normal 0-5 [facility] Comment on above: Performed By: #### L 501.4021, L503.7505, L100.0100, L500.2500 #### [facility] [address] [place], [address] Platelet mean volume (Bld) [Entitic vol] 11.3 fL Normal 6.2-12.0 [facility] Comment on above: Performed By: #### L 501.4021, L503.7505, L100.0100, L500.2500 #### [facility] [address] [place], [address] Platelets (Bld) [#/Vol] 263 10*3/uL Normal 150-450 [facility] Comment on above: Performed By: #### L 501.4021, L503.7505, L100.0100, L500.2500 #### [facility] [address] [place], [address] RBC (Bld) [#/Vol] 4.19 10*6/uL Low 4.6-6.2 [facility] Comment on above: Performed By: #### L 501.4021, L503.7505, L100.0100, L500.2500 #### [facility] [address] [place], [address] RDW SD 44.8 fl High 35.1-43.9 [facility] Comment on above: Performed By: #### L 501.4021, L503.7505, L100.0100, L500.2500 #### [facility] [address] [place], [address] WBC (Bld) [#/Vol] 8.6 10*3/uL Normal 4.4-11.0 [facility] Comment on above: Performed By: #### L 501.4021, L503.7505, L100.0100, L500.2500 #### [facility] [address] [place], [address] Carbon dioxide, total [Moles /volume] in Central venous bloodOrdered By: Jony Francis on 02-15-2025 CO2 [Moles/Vol] 25.4 mmol/L 21.0-32.0 [facility] Chest PA and Lateralon 02-15 Chest PA and Lateral [facility] [address] [place] [address] Chest PA and Lateral MR#: [id number] Acct: [id number] Name: MANDA DENIS Rep #: [id number] : 1985 M 40 From: Liam Isbell MD PCP: [facility] Status: PRE ER Study: Chest PA and Lateral Date of Exam: 02/15/25 Exam# [id number] Ordering Dr: Jony Francis MD PROCEDURE: CHEST PA AND LATERAL 02/15/2025 REASON FOR EXAM: CHEST PAIN TECHNIQUE: Frontal and lateral views of the chest. COMPARISON: 05/20/2024 FINDINGS: Lungs: Lungs clear of pneumonia and congestion. Pleura: No pleural effusions, thickening, or pneumothorax. Heart: Mild cardiac enlargement. Mediastinum/Mary: Unremarkable. Great vessels: Unremarkable. Bones/soft tissues: Unremarkable. Cardiac monitoring leads overlie the chest wall. RAD/Chest PA and Lateral IMPRESSION: No active cardiopulmonary disease Mild cardiac enlargement. Reading Location: [facility] CC: Dr. Jony Francis MD; [facility] Anatomy And Physiology Instructor: Signed Normal [facility] Chloride assayOrdered By: Domo Francis on 02-15-2025 Chloride [Moles/Vol] 105 mmol/L 98-108 [facility] Emergency Department Summary on 02-15-2025 Emergency Department Summary [facility] Medical Records Department [address] [place] [address] Emergency Department Summary 02/15/25 MR#: [id number] Acct: [id number] Name: MANDA DENIS Rep #: [id number] : 1985 40 From: Jony Francis MD PCP: [facility] Status:DEP ER Location: ED HPI History of Present Illness Chief Complaint: Edema Informant: patient and family Onset/Context/Timin g Onset: Weeks Context: Gradual Onset Timing: Continuous Current Severity: Mild Maximum Severity: Mild Narrative Narrative: 40-year-old male history of sleep apnea. States that over the last 2 weeks he has developed lower extremity swelling in both legs. Denies chest pain or shortness of breath. Denies vomiting or diarrhea or fever. No dysuria. He still urinating. He is concerned because there is a family history of diabetes in both his parents and hypertension. He is currently treated for neither. Prior similar symptoms: No Recent Illness/Hospitaliza tion: No PFSH PFSH Medical History Depression Osteoporosis Smoker CPAP (continuous positive airway pressure) dependence Sleep apnea Asthma Chest pain Migraines Right shoulder strain Strain of right trapezius muscle Lumbar strain Chronic neck and back pain Limb weakness Knee pain Fatigue Shoulder pain Shortness of breath Home Medications ???Medication ???Instructions ???Recorded ???Last Taken ???Type acetaminophen 325 mg tablet 650 mg PO Q6H 01/15/24 Unknown His tory (Tylenol) cholecalciferol (vitamin D3) 25 75 mcg PO DAILY 01/15/24 Unknown H istory mcg (1,000 unit) capsule tizanidine 4 mg capsule 4 mg PO Q6H PRN back spasms Unknown History prednisone 20 mg tablet 20 mg PO BID #10 tabs 05/20/24 Unk nown Rx cyclobenzaprine 10 mg tablet 10 mg PO TID PRN Muscle Spasm #15 07/27/24 Unknown Rx TABLETS ibuprofen 600 mg tablet 600 mg PO Q6H PRN PRN pain #20 Unknown Rx TABLETS oxycodone-acetamino phen 5 mg-325 1 tab PO Q6H PRN pain 3 days #12 1 Unknown Rx mg tablet (Percocet) tabs ondansetron 4 mg disintegrating 4 mg PO Q6H PRN PRN Nausea #15 tab s 01/22/25 Unknown Rx tablet hydrochlorothiazide 12.5 mg tablet 12.5 mg PO DAILY 30 days #30 tab s 02/15/25 Unknown Rx Allergy/AdvReac Type Severity Reaction Status Date / Time Penicillins Allergy Mild Swelling Verified 02/15/25 17:23 Surgical History Previous back surgery History of embolic filter insertion H/O knee surgery Social History Smoking Status: Current every day smoker tobacco type: cigarettes alcohol intake: never ROS ROS ED ROS Narrative Bilateral lower extremity swelling. Constitutional Constitutional ED: Denies chills or fever(s) Eyes Eyes: Denies blurry vision ENT ENT ED: Denies ear pain Cardiovascular Cardiovascular: Denies chest pain Respiratory/Chest Respiratory/Chest: Denies cough or dyspnea Gastrointestinal Gastrointestinal: Denies abdominal pain Genitourinary Genitourinary ED: Denies dysuria or hematuria Musculoskeletal Musculoskeletal: Denies arthralgias Integumentary Denies abscess Neurologic Neurologic: Reports headache(s) Psychiatric Psychiatric: Denies anxiety or depression Hematologic/Lymphat ic Hematologic/Lymphat ic: Reports none Allergic/Immunologi c Allergic/Immunologi c ED: Denies mouth swelling, tongue swelling or urticaria EXAM Physical Exam Narrative Exam Narrative: 40-year-old male sitting upright in bed. He is a very large gentleman 6 foot 6 and over 400 pounds. I believe it is his daughter at bedside. Vital signs initial blood pressure 202/105 pulse ox 100% on room air. He is afebrile. He is in no distress. H EENT exam pupils round reactive light. Moist with membranes. Neck nontender no JVD. No lymphadenopathy. Lungs clear to auscultation bilaterally. Heart regular rhythm rate about 90 no murmur. Chest wall and ribs nontender. Abdomen soft nontender. Moving all 4 extremities. 5 out of 5 zanjero strength. Dorsi plantarflexion intact. He does have 1+ pitting edema both lower extremities to his knees bilaterally. Neurologically he is awake and alert. Answering questions following commands. Const Vital Signs: 02/15/25 17:24 02/15/25 17:47 02/15/25 17:47 Temperature 97.3 F L Temperature Source Temporal Pulse Rate 90 83 Respiratory Rate 18 Respiratory Effort Normal Non-Labored Blood Pressure 202/105 H 172/88 H Blood Pressure Mean 137 116 Pulse Ox 100 Oxygen Delivery Method Room Air 02/15/25 18:12 02/15/25 19:00 Temperature Temperature Source Pulse Rate 75 Respiratory Rate 18 Respiratory Effort (more content not included)... Normal [facility] Eosinophil percentageOrdered By: Jony Francis on 02-15-2025 Eosinophils/100 WBC (Bld) 5.0 % 0-5 [facility] Erythrocyte distribution wid th (RBC) [Ratio]Ordered By: Jony Francis on 02-15-2025 Erythrocyte distribution width (RBC) [Entitic vol] 44.8 fL High 35.1-43.9 [facility] Erythrocyte distribution wid th ratioOrdered By: Jony Francis on 02-15-2025 Erythrocyte distribution width (RBC) [Ratio] 13.8 % 11.6-14.6 [facility] Estimation of creatinine brian aranceOrdered By: Jony Francis on 02-15-2025 Estimated Creatinine Clearance Calc 176.32 ml/min 50-250 [facility] GFR/1.73 sq M.predicted larry g non-blacks MDRD (S/P/Bld) [Vol rate/Area]Ordered By: Jony Francis on 02-15-2025 Estimated GFR (MDRD) Non-Af Amer 95 >60 [facility] Comment on above: mL/min/1.73m2 CKD-EP I Creatinine Equation (2020) Hematocrit Auto (Bld) [Volum e fraction]Ordered By: Jony Francis on 02-15-2025 Hematocrit (Bld) [Volume fraction] 37.6 % Low 40-54 [facility] Hemoglobin measurementOrdere d By: Jony Francis on 02-15-2025 Hemoglobin (Bld) [Mass/Vol] 12.6 g/dL Low 13.0-16.5 [facility] Immature granulocytes/100 WB C Auto (Bld)Ordered By: Jony Francis on 02-15-2025 Immature granulocytes/100 WBC (Bld) 0.200 % 0.0-0.9 [facility] Comment on above: IG% - Immature Granu locytes (promyelocytes, myelocytes and metamyelocytes) > 1% indicates that a LEFT SHIFT is Present. L501.4021on 02-15-2025 Trop T High Sen 11 ng/L Normal <=22 [facility] Comment on above: Performed By: #### L 501.4021, L503.7505, L100.0100, L500.2500 ####[facility] [address] [place], [address] L503.7505on 02-15-2025 Natriuretic peptide B (Bld) [Mass/Vol] 56 pg/mL Normal <=450 [facility] Comment on above: Result Comment: Hear t Failure Unlikely: < 300 pg/mL Heart Failure Likely < 50 Years: > 450 pg/mL 50-75 Years: > 900 pg/mL >75 Years: > 1800 pg/mL Performed By: #### L 501.4021, L503.7505, L100.0100, L500.2500 ####[facility] [address] [place], [address] Lymphocytes Auto (Unsp spec) [#/Vol]Ordered By: Jony Francis on 02-15-2025 Lymphocytes (Bld) [#/Vol] 2.57 10*3/uL 0.83-4.5 1 [facility] Lymphocytes/100 WBC Auto (Un sp spec)Ordered By: Jony Francis on 02-15-2025 Lymphocytes/100 WBC (Bld) 29.8 % 19-41 [facility] MCV (mean corpuscular volume ) determinationOrdered By: Jony Francis on 02-15-2025 MCV (RBC) [Entitic vol] 89.7 fL 80-94 [facility] Mean corpuscular hemoglobin (MCH) determinationOrdered By: Jony Francis on 02-15-2025 MCH (RBC) [Entitic mass] 30.1 pg 27.0-32.0 [facility] Mean corpuscular hemoglobin concentration (MCHC) determinationOrdered By: Jony Francis on 02-15-2025 MCHC (RBC) [Mass/Vol] 33.5 g/dL 32-36 [facility] Mean platelet volume determi nationOrdered By: Jony Francis on 02-15-2025 Platelet mean volume (Bld) [Entitic vol] 11.3 fL 6.2-12.0 [facility] Monocyte percentageOrdered B y: Jony Francis on 02-15-2025 Monocytes/100 WBC (Bld) 6.6 % 0-10 [facility] Natriuretic peptide.B prohor shawna N-Terminal [Mass/Vol]Ordered By: Jony Francis on 02-15-2025 Natriuretic peptide B (Bld) [Mass/Vol] 56 pg/mL <450 [facility] Comment on above: Heart Failure Unlike ly: < 300 pg/mLHeart Failure Likely< 50 Years: > 450 pg/mL50-75 Years: > 900 pg/mL>75 Years: > 1800 pg/mL Neutrophil percentageOrdered By: Jony Francis on 02-15-2025 Neutrophils/100 WBC (Bld) 57.8 % 47-70 [facility] Nucleated red blood cell per centageOrdered By: Jony Francis on 02-15-2025 Nucleated RBC/100 WBC (Bld) [Ratio] 0 % 0-5 [facility] Platelet countOrdered By: Domo Francis on 02-15-2025 Platelets (Bld) [#/Vol] 263 10*3/uL 150-450 [facility] Potassium (Unsp spec) [Mass/ Vol]Ordered By: Jony Francis on 02-15-2025 Potassium [Moles/Vol] 4.0 mmol/L 3.3-5.1 [facility] RBC Auto (Bld) [#/Vol]Ordere d By: Jony Francis on 02-15-2025 RBC (Bld) [#/Vol] 4.19 10*6/uL Low 4.6-6.2 [facility] Serum creatinine measurement (mass/volume)Ordered By: Jony Francis on 02-15-2025 Creatinine [Mass/Vol] 1.01 mg/dL 0.70-1.20 [facility] Serum glucose measurement (m ass/volume)Ordered By: Jony Francis on 02-15-2025 Glucose [Mass/Vol] 127 mg/dL High 70-99 [facility] Serum or plasma calcium maru urement (mass/volume)Ordered By: Jony Francis on 02-15-2025 Calcium [Mass/Vol] 8.9 mg/dL 7.6-11.0 [facility] Serum or plasma urea nitroge n measurement (mass/volume)Ordered By: Jony Francis on 02-15-2025 Urea nitrogen [Mass/Vol] 11 mg/dL 4-19 [facility] Sodium levelOrdered By: Jony Francis on 02-15-2025 Sodium [Moles/Vol] 139 mmol/L 133-145 [facility] Troponin T.cardiac High sens itivity method [Mass/Vol]Ordered By: Jony Francis on 02-15-2025 Troponin T High Sensitivity 11 ng/L <22 [facility] White blood cell (WBC) count Ordered By: Jony Francis on 02-15-2025 WBC (Bld) [#/Vol] 8.6 10*3/uL 4.4-11.0 [facility] Absolute neutrophil countOrd ered By: Zach San on 01-22-2025 Neutrophils (Bld) [#/Vol] 3.0 10*3/uL 2.0-7.7 [facility] Anion gap in Serum or Plasma Ordered By: Zach San on 01-22-2025 Anion gap [Moles/Vol] 7 mmol/L 5-15 [facility] BUN/creatinine ratioOrdered By: Zach San on 01-22-2025 Urea nitrogen/Creatinine [Mass ratio] 11.7 mg/mg 10-20 [facility] Basophil percentageOrdered B y: Zach San on 01-22-2025 Basophils/100 WBC (Bld) 1.0 % 0-1 [facility] Bilirubin, totalOrdered By: Zach San on 01-22-2025 Bilirubin [Mass/Vol] 0.21 mg/dL 0.00-1.30 [facility] CBC W/Diff, Automatedon 01-11 Absolute Lymph 1.86 X10 3/uL Normal 0.83-4.51 [facility] Comment on above: Performed By: #### L 500.4050, L100.0100 ####[facility] [address] [place], [address] Absolute Neut 3.0 X10 3/uL Normal 2.0-7.7 [facility] Comment on above: Performed By: #### L 500.4050, L100.0100 ####[facility] [address] [place], [address] Basophils/100 WBC (Bld) 1.0 % Normal 0-1 [facility] Comment on above: Performed By: #### L 500.4050, L100.0100 ####[facility] [address] [place], [address] Eosinophils/100 WBC (Bld) 6.5 % High 0-5 [facility] Comment on above: Performed By: #### L 500.4050, L100.0100 ####[facility] [address] [place], [address] Erythrocyte distribution width (RBC) [Ratio] 13.7 % Normal 11.6-14.6 [facility] Comment on above: Performed By: #### L 500.4050, L100.0100 ####[facility] [address] [place], [address] Hematocrit (Bld) [Volume fraction] 38.4 % Low 40-54 [facility] Comment on above: Performed By: #### L 500.4050, L100.0100 ####[facility] [address] [place], [address] Hemoglobin (Bld) [Mass/Vol] 12.9 g/dL Low 13.0-16.5 [facility] Comment on above: Performed By: #### L 500.4050, L100.0100 ####[facility] [address] [place], [address] IG% 0.200 Normal 0.0-0.9 [facility] Comment on above: Result Comment: IG% - Immature Granulocytes (promyelocytes, myelocytes and metamyelocytes) > 1% indicates that a LEFT SHIFT is Present. Performed By: #### L 500.4050, L100.0100 ####[facility] [address] [place], [address] Lymphocytes/100 WBC (Bld) 31.7 % Normal 19-41 [facility] Comment on above: Performed By: #### L 500.4050, L100.0100 ####[facility] [address] [place], [address] MCH (RBC) [Entitic mass] 30.0 pg Normal 27.0-32.0 [facility] Comment on above: Performed By: #### L 500.4050, L100.0100 ####[facility] [address] [place], [address] MCHC (RBC) [Mass/Vol] 33.6 g/dL Normal 32-36 [facility] Comment on above: Performed By: #### L 500.4050, L100.0100 ####[facility] [address] [place], [address] MCV (RBC) [Entitic vol] 89.3 fL Normal 80-94 [facility] Comment on above: Performed By: #### L 500.4050, L100.0100 ####[facility] [address] [place], [address] Monocytes/100 WBC (Bld) 9.9 % Normal 0-10 [facility] Comment on above: Performed By: #### L 500.4050, L100.0100 ####[facility] [address] [place], [address] Neutrophils/100 WBC (Bld) 50.7 % Normal 47-70 [facility] Comment on above: Performed By: #### L 500.4050, L100.0100 ####[facility] [address] [place], [address] Nucleated RBC (Bld) [#/Vol] 0 10*3/uL Normal 0-5 [facility] Comment on above: Performed By: #### L 500.4050, L100.0100 ####[facility] [address] [place], [address] Platelet mean volume (Bld) [Entitic vol] 11.3 fL Normal 6.2-12.0 [facility] Comment on above: Performed By: #### L 500.4050, L100.0100 ####[facility] [address] [place], [address] Platelets (Bld) [#/Vol] 207 10*3/uL Normal 150-450 [facility] Comment on above: Performed By: #### L 500.4050, L100.0100 ####[facility] [address] [place], [address] RBC (Bld) [#/Vol] 4.30 10*6/uL Low 4.6-6.2 [facility] Comment on above: Performed By: #### L 500.4050, L100.0100 ####[facility] [address] [place], [address] RDW SD 44.5 fl High 35.1-43.9 [facility] Comment on above: Performed By: #### L 500.4050, L100.0100 ####[facility] [address] [place], [address] WBC (Bld) [#/Vol] 5.9 10*3/uL Normal 4.4-11.0 [facility] Comment on above: Performed By: #### L 500.4050, L100.0100 ####[facility] [address] [place], [address] Carbon dioxide, total [Moles /volume] in Central venous bloodOrdered By: Zach San on 01-22-2025 CO2 [Moles/Vol] 26.0 mmol/L 21.0-32.0 [facility] Chloride assayOrdered By: Chalino San on 01-22-2025 Chloride [Moles/Vol] 103 mmol/L 98-108 [facility] Comprehensive Metabolic Prof ilon 01-22-2025 Albumin [Mass/Vol] 3.9 g/dL Normal 3.5-5.0 [facility] Comment on above: Performed By: #### L 500.4050, L100.0100 ####[facility] [address] [place], [address] Albumin/Globulin [Mass ratio] 1.4 {ratio} Normal 0.9-2.4 [facility] Comment on above: Performed By: #### L 500.4050, L100.0100 ####[facility] [address] [place], [address] ALK PHOS 62 U/L Normal 40-129 [facility] Comment on above: Performed By: #### L 500.4050, L100.0100 ####[facility] [address] [place], [address] ALT [Catalytic activity/Vol] 29 U/L Normal <=46 [facility] Comment on above: Performed By: #### L 500.4050, L100.0100 ####[facility] [address] [place], [address] AST [Catalytic activity/Vol] 24 U/L Normal <=37 [facility] Comment on above: Performed By: #### L 500.4050, L100.0100 ####[facility] [address] [place], [address] Bilirubin [Mass/Vol] 0.21 mg/dL Normal 0.00-1.30 [facility] Comment on above: Performed By: #### L 500.4050, L100.0100 ####[facility] [address] [place], [address] BUN/CRE 11.7 RATIO Normal 10-20 [facility] Comment on above: Performed By: #### L 500.4050, L100.0100 ####[facility] [address] [place], [address] Calcium [Mass/Vol] 8.8 mg/dL Normal 7.6-11.0 [facility] Comment on above: Performed By: #### L 500.4050, L100.0100 ####[facility] [address] [place], [address] Chloride [Moles/Vol] 103 mmol/L Normal 98-108 [facility] Comment on above: Performed By: #### L 500.4050, L100.0100 ####[facility] [address] [place], [address] CO2 [Moles/Vol] 26.0 mmol/L Normal 21.0-32.0 [facility] Comment on above: Performed By: #### L 500.4050, L100.0100 ####[facility] [address] [place], [address] Creatinine [Mass/Vol] 0.97 mg/dL Normal 0.70-1.20 [facility] Comment on above: Performed By: #### L 500.4050, L100.0100 ####[facility] [address] [place], [address] GAP 7 Normal 5-15 [facility] Comment on above: Performed By: #### L 500.4050, L100.0100 ####[facility] [address] [place], [address] GFR/1.73 sq M.predicted among non-blacks MDRD (S/P/Bld) [Vol rate/Area] 100 mL/min/{1.73_m2} Normal >60 [facility] Comment on above: Result Comment: mL/m in/1.73m2 CKD-EPI Creatinine Equation (2020) Performed By: #### L 500.4050, L100.0100 ####[facility] [address] [place], [address] Globulin (S) [Mass/Vol] 2.7 g/dL Normal 2.2-4.2 [facility] Comment on above: Performed By: #### L 500.4050, L100.0100 ####[facility] [address] [place], [address] Glucose [Mass/Vol] 81 mg/dL Normal 70-99 [facility] Comment on above: Performed By: #### L 500.4050, L100.0100 ####[facility] [address] [place], [address] Potassium [Moles/Vol] 4.1 mmol/L Normal 3.3-5.1 [facility] Comment on above: Performed By: #### L 500.4050, L100.0100 ####[facility] [address] [place], [address] Sodium [Moles/Vol] 137 mmol/L Normal 133-145 [facility] Comment on above: Performed By: #### L 500.4050, L100.0100 ####[facility] [address] [place], [address] T PROT 6.6 g/dL Normal 5.9-8.4 [facility] Comment on above: Performed By: #### L 500.4050, L100.0100 ####[facility] [address] [place], [address] Urea nitrogen [Mass/Vol] 11 mg/dL Normal 4-19 [facility] Comment on above: Performed By: #### L 500.4050, L100.0100 ####[facility] [address] [place], [address] Emergency Department Summary on 01-22-2025 Emergency Department Summary [facility] Medical Records Department [address] [place] [address] Emergency Department Summary 01/22/25 MR#: [id number] Acct: [id number] Name: MANDA DENIS Rep #: [id number] : 1985 40 From: Zach San DO PCP: [facility] Status:DEP ER Location: ED HPI History of Present Illness Chief Complaint: General Illness Informant: patient Narrative Narrative: 40-year-old male presenting to the emergency room with a 1 day history of not feeling well. Patient states that yesterday he suddenly developed body aches slightly sore throat runny nose cough. He states that he had a fever last night before bed. He did not take anything for it. This morning he felt cool and clammy and had emesis. He also notes some diarrhea. He denies any fever today. He states he feels dehydrated. He notes multiple sick contacts at home. He states he has a history of hypertension. [facility] Medical History Depression Osteoporosis Smoker CPAP (continuous positive airway pressure) dependence Sleep apnea Asthma Chest pain Migraines Right shoulder strain Strain of right trapezius muscle Lumbar strain Chronic neck and back pain Limb weakness Knee pain Fatigue Shoulder pain Shortness of breath Home Medications ???Medication ???Instructions ???Recorded ???Last Taken ???Type acetaminophen 325 mg tablet 650 mg PO Q6H 01/15/24 Unknown His tory (Tylenol) cholecalciferol (vitamin D3) 25 75 mcg PO DAILY 01/15/24 Unknown H istory mcg (1,000 unit) capsule tizanidine 4 mg capsule 4 mg PO Q6H PRN back spasms Unknown History prednisone 20 mg tablet 20 mg PO BID #10 tabs 05/20/24 Unk nown Rx cyclobenzaprine 10 mg tablet 10 mg PO TID PRN Muscle Spasm #15 07/27/24 Unknown Rx TABLETS ibuprofen 600 mg tablet 600 mg PO Q6H PRN PRN pain #20 Unknown Rx TABLETS oxycodone-acetamino phen 5 mg-325 1 tab PO Q6H PRN pain 3 days #12 1 Unknown Rx mg tablet (Percocet) tabs ondansetron 4 mg disintegrating 4 mg PO Q6H PRN PRN Nausea #15 tab s 01/22/25 Unknown Rx tablet Allergy/AdvReac Type Severity Reaction Status Date / Time Penicillins Allergy Mild Swelling Verified 01/22/25 12:10 Surgical History Previous back surgery History of embolic filter insertion H/O knee surgery Social History Smoking Status: Current every day smoker tobacco type: cigarettes alcohol intake: never ROS ROS ED Constitutional Constitutional ED: Reports chills, fever(s), subjective and sweats; Denies weight loss Eyes Eyes: Denies change in vision or diplopia ENT ENT ED: Reports rhinorrhea and sore throat; Denies ear pain Cardiovascular Cardiovascular: Denies chest pain, orthopnea, palpitations or racing heartbeat Respiratory/Chest Respiratory/Chest: Reports cough; Denies dyspnea or orthopnea Gastrointestinal Gastrointestinal: Reports diarrhea, nausea and vomiting; Denies abdominal pain Genitourinary Genitourinary ED: Denies dysuria, hematuria or urinary frequency Musculoskeletal Musculoskeletal: Reports myalgias; Denies arthralgias or neck pain Integumentary Denies abscess or rash Neurologic Neurologic: Denies headache(s) or weakness Psychiatric Psychiatric: Denies anxiety, depression, suicidal ideation or suicidal thoughts Endocrine Endocrinology: Denies polydipsia, polyphagia or polyuria Allergic/Immunologi c Allergic/Immunologi c ED: Denies mouth swelling, tongue swelling or urticaria EXAM Physical Exam Const Vital Signs: 01/22/25 12:10 01/22/25 14:10 Temperature 98.1 F 97.8 F Temperature Source Oral Pulse Rate 87 64 Respiratory Rate 19 H 18 Blood Pressure 154/91 H 143/78 H Blood Pressure Mean 112 99 Pulse Ox 98 99 Oxygen Delivery Method Room Air Positive well nourished, well developed and obese General Appearance ED: well developed and NAD Nutritional Appearance: obese HEENT Reports normocephalic, head/scalp atraumatic and moist mucous membranes HEENT Narrative: Turbinate edema clear rhinorrhea. Eyes PERRL and EOMs intact bilaterally Neck no lymphadenopathy, supple and no JVD Resp normal respiratory effort and clear to auscultation bilaterally Resp Narrative: Nonproductive cough Cardio regular rate, regular rhythm and no murmurs GI normal to inspection, nondistended, normoactive bowel sounds and non-tender Palpation: soft Back/Spine no CVA tenderness and normal ROM Extremity normal to inspection General Extremety ED: Negative for edema General Extremity: Negative for edema Neuro oriented x3 and CN's II-XII intact bilaterally Sensorium / Orientation: magno (more content not included)... Normal [facility] Eosinophil percentageOrdered By: Zach San on 01-22-2025 Eosinophils/100 WBC (Bld) 6.5 % High 0-5 [facility] Erythrocyte distribution wid th (RBC) [Ratio]Ordered By: Zach San on 01-22-2025 Erythrocyte distribution width (RBC) [Entitic vol] 44.5 fL High 35.1-43.9 [facility] Erythrocyte distribution wid th ratioOrdered By: Zach San on 01-22-2025 Erythrocyte distribution width (RBC) [Ratio] 13.7 % 11.6-14.6 [facility] GFR/1.73 sq M.predicted larry g non-blacks MDRD (S/P/Bld) [Vol rate/Area]Ordered By: Zach San on 01-22-2025 Estimated GFR (MDRD) Non-Af Amer 100 >60 [facility] Comment on above: mL/min/1.73m2 CKD-EP I Creatinine Equation (2020) Hematocrit Auto (Bld) [Volum e fraction]Ordered By: Zach San on 01-22-2025 Hematocrit (Bld) [Volume fraction] 38.4 % Low 40-54 [facility] Hemoglobin measurementOrdere d By: Zach San on 01-22-2025 Hemoglobin (Bld) [Mass/Vol] 12.9 g/dL Low 13.0-16.5 [facility] Immature granulocytes/100 WB C Auto (Bld)Ordered By: Zach San on 01-22-2025 Immature granulocytes/100 WBC (Bld) 0.200 % 0.0-0.9 [facility] Comment on above: IG% - Immature Granu locytes (promyelocytes, myelocytes and metamyelocytes) > 1% indicates that a LEFT SHIFT is Present. Influenza virus A and B and SARS-CoV-2 (COVID-19) and Respiratory syncytial virus RNAOrdered By: Zach San on 01-22-2025 SARS-CoV-2 (COVID-19) RNA VIVIAN+probe Ql (Unsp spec) [facility] Laboratory - Chemistry and C hemistry - challengeOrdered By: Zach San on 01-22-2025 AST [Catalytic activity/Vol] 24 U/L <38 [facility] Lymphocytes Auto (Unsp spec) [#/Vol]Ordered By: Zach San on 01-22-2025 Lymphocytes (Bld) [#/Vol] 1.86 10*3/uL 0.83-4.5 1 [facility] Lymphocytes/100 WBC Auto (Un sp spec)Ordered By: Zach San on 01-22-2025 Lymphocytes/100 WBC (Bld) 31.7 % 19-41 [facility] M100.678on 01-22-2025 M100.678 Pending SARS-CoV-2 (COVID 19) Negative INFLUENZA A Negative INFLUENZA B Negative RSV PCR Negative Normal [facility] Comment on above: Performed By: #### M 100.678 ####[facility] [address] [place], [address] MCV (mean corpuscular volume ) determinationOrdered By: Zach San on 01-22-2025 MCV (RBC) [Entitic vol] 89.3 fL 80-94 [facility] Mean corpuscular hemoglobin (MCH) determinationOrdered By: Zach San on 01-22-2025 MCH (RBC) [Entitic mass] 30.0 pg 27.0-32.0 [facility] Mean corpuscular hemoglobin concentration (MCHC) determinationOrdered By: Zach San on 01-22-2025 MCHC (RBC) [Mass/Vol] 33.6 g/dL 32-36 [facility] Mean platelet volume determi nationOrdered By: Zach San on 01-22-2025 Platelet mean volume (Bld) [Entitic vol] 11.3 fL 6.2-12.0 [facility] Monocyte percentageOrdered B y: Zach San on 01-22-2025 Monocytes/100 WBC (Bld) 9.9 % 0-10 [facility] Neutrophil percentageOrdered By: Zach San on 01-22-2025 Neutrophils/100 WBC (Bld) 50.7 % 47-70 [facility] Nucleated red blood cell per centageOrdered By: Zach San on 01-22-2025 Nucleated RBC/100 WBC (Bld) [Ratio] 0 % 0-5 [facility] Platelet countOrdered By: Chalino San on 01-22-2025 Platelets (Bld) [#/Vol] 207 10*3/uL 150-450 [facility] Potassium (Unsp spec) [Mass/ Vol]Ordered By: Zach San on 01-22-2025 Potassium [Moles/Vol] 4.1 mmol/L 3.3-5.1 [facility] RBC Auto (Bld) [#/Vol]Ordere d By: Zach San on 01-22-2025 RBC (Bld) [#/Vol] 4.30 10*6/uL Low 4.6-6.2 [facility] Serum creatinine measurement (mass/volume)Ordered By: Zach San on 01-22-2025 Creatinine [Mass/Vol] 0.97 mg/dL 0.70-1.20 [facility] Serum globulin measurementOr dered By: Zach San on 01-22-2025 Globulin (S) [Mass/Vol] 2.7 g/dL 2.2-4.2 [facility] Serum glucose measurement (m ass/volume)Ordered By: Zach San on 01-22-2025 Glucose [Mass/Vol] 81 mg/dL 70-99 [facility] Serum or plasma alanine del valle otransferase (ALT) measurementOrdered By: Zach San on 01-22-2025 ALT [Catalytic activity/Vol] 29 U/L <47 [facility] Serum or plasma albumin maru urement (mass/volume)Ordered By: Zach San on 01-22-2025 Albumin [Mass/Vol] 3.9 g/dL 3.5-5.0 [facility] Serum or plasma albumin/glob ulin mass ratioOrdered By: Zach San on 01-22-2025 Albumin/Globulin [Mass ratio] 1.4 {ratio} 0.9-2.4 [facility] Serum or plasma alkaline chris sphatase measurementOrdered By: Zach San on 01-22-2025 ALP [Catalytic activity/Vol] 62 U/L 40-129 [facility] Serum or plasma calcium maru urement (mass/volume)Ordered By: Zach San on 01-22-2025 Calcium [Mass/Vol] 8.8 mg/dL 7.6-11.0 [facility] Serum or plasma urea nitroge n measurement (mass/volume)Ordered By: Zach San on 01-22-2025 Urea nitrogen [Mass/Vol] 11 mg/dL 4-19 [facility] Sodium levelOrdered By: Janes San on 01-22-2025 Sodium [Moles/Vol] 137 mmol/L 133-145 [facility] Total proteinOrdered By: Lowell San on 01-22-2025 Protein [Mass/Vol] 6.6 g/dL 5.9-8.4 [facility] White blood cell (WBC) count Ordered By: Zach San on 01-22-2025 WBC (Bld) [#/Vol] 5.9 10*3/uL 4.4-11.0 [facility] Emergency Department Summary on 07-27-2024 Emergency Department Summary [facility] Medical Records Department [address] [place] [address] Emergency Department Summary 07/27/24 MR#: [id number] Acct: [id number] Name: MANDA DENIS Rep #: [id number] : 1985 39 From: Zach San DO PCP: [facility] Status:[facility] ER Location: ED HPI History of Present Illness Chief Complaint: Back Informant: patient Narrative Narrative: 39-year-old male presenting to the emergency room with left low back pain. Patient states that early this morning around 0200 hrs. 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 States he put the pipe on the ground and then he coughed he felt the pop in the low back. Pain radiated down the posterior aspect of the left thigh to the level of the knee. He states that he has had continued to have pain since and difficulty moving. Denies any bowel or bladder dysfunction. States that last week he had a similar pain but not as severe that eventually got better and was felt at that time on evaluation in the emergency department to be muscular in nature. He denies any known malignancies. [facility] No significant chronic medical problems. [facility] Medical History Depression Osteoporosis Smoker CPAP (continuous positive airway pressure) dependence Sleep apnea Asthma Chest pain Migraines Right shoulder strain Strain of right trapezius muscle Lumbar strain Chronic neck and back pain Limb weakness Knee pain Fatigue Shoulder pain Shortness of breath Home Medications ???Medication ???Instructions ???Recorded ???Last Taken ???Type acetaminophen 325 mg tablet 650 mg PO Q6H 01/15/24 Unknown History (Tylenol) cholecalciferol (vitamin D3) 25 75 mcg PO DAILY 01/15/24 Unknown History mcg (1,000 unit) capsule tizanidine 4 mg capsule 4 mg PO Q6H PRN back spasms 01/15/24 Unknown History prednisone 20 mg tablet 20 mg PO BID #10 tabs 05/20/24 Unknown Rx cyclobenzaprine 10 mg tablet 10 mg PO TID PRN Muscle Spasm #15 07/27/24 Unknown Rx TABLETS ibuprofen 600 mg tablet 600 mg PO Q6H PRN PRN pain #20 07/27/24 Unknown Rx TABLETS oxycodone-acetamino phen 5 mg-325 1 tab PO Q6H PRN pain 3 days #12 07/27/24 Unknown Rx mg tablet (Percocet) tabs Allergy/AdvReac Type Severity Reaction Status Date / Time Penicillins Allergy Mild Swelling Verified 07/27/24 10:13 Surgical History Previous back surgery History of embolic filter insertion H/O knee surgery Social History Smoking Status: Current every day smoker tobacco type: cigarettes alcohol intake: never ROS ROS ED Constitutional Constitutional ED: Denies chills, fever(s) or weight loss Eyes Eyes: Denies change in vision or diplopia ENT ENT ED: Denies ear pain, rhinorrhea or sore throat Cardiovascular Cardiovascular: Denies chest pain, orthopnea, palpitations or racing heartbeat Respiratory/Chest Respiratory/Chest: Denies cough, dyspnea or orthopnea Gastrointestinal Gastrointestinal: Denies abdominal pain, diarrhea, nausea or vomiting Genitourinary Genitourinary ED: Denies dysuria, hematuria or urinary frequency Musculoskeletal Musculoskeletal: Reports back pain; Denies arthralgias, myalgias or neck pain Integumentary Denies abscess or rash Neurologic Neurologic: Denies headache(s) or weakness Psychiatric Psychiatric: Denies anxiety, depression, suicidal ideation or suicidal thoughts Endocrine Endocrinology: Denies polydipsia, polyphagia or polyuria Allergic/Immunologi c Allergic/Immunologi c ED: Denies mouth swelling, tongue swelling or urticaria EXAM Physical Exam Const Vital Signs: 07/27/24 10:14 07/27/24 14:13 07/27/24 14:55 Temperature 97.8 F 97 F L Temperature Source Oral Pulse Rate 82 76 67 Respiratory Rate 16 16 16 Blood Pressure 159/88 H 132/76 H 137/86 H Blood Pressure Mean 111 94 103 Pulse Ox 99 95 97 Oxygen Delivery Method Room Air Room Air Positive well nourished, well developed and obese General Appearance ED: well developed and NAD Nutritional Appearance: obese HEENT Reports normocephalic, head/scalp atraumatic and moist mucous membranes Eyes PERRL and EOMs intact bilaterally Neck no lymphadenopathy, supple and no JVD Resp normal respiratory effort and clear to auscultation bilaterally Cardio regular rate, regular rhythm and no murmurs GI normal to inspection, nondistended, normoactive bowel sounds and non-tender Palpation: soft Back/Spine no CVA tenderness Back/Spine Narrative: Patient has painful range of motion. He has tenderness to palpation over the left low back lumbar paraspinal musculature and slightly in the midline. There are no soft tissue texture angie (more content not included)... Normal [facility] Spine Lumbar without Contras ton 07-27-2024 Spine Lumbar without Contrast [facility] Imaging Services [address] [place], [place] [address] Spine Lumbar without Contrast MR#: [id number] Acct: [id number] Name: MANDA DENIS Rep #: [id number] : 1985 M 39 From: Judi mcmahon MD PCP: [place] [facility] Status: REG ER Study: Spine Lumbar without Contrast Date of Exam: Exam# [id number] Ordering Dr: Zach San DO -[id number] HISTORY: low back injury. TECHNIQUE: Helically acquired images were obtained of the lumbar spine without contrast. A radiation dose optimization technique was used for this scan. 392 images. COMPARISON: None. FINDINGS: VERTEBRAE: Vertebral body heights maintained. Posterior elements intact. ALIGNMENT: No significant anterior or posterior subluxation. INTERVERTEBRAL DISCS: Mild disc bulges of L3-4, L4-5, and L5-S1. No critical central canal stenosis seen. Bilateral foraminal narrowing. SOFT TISSUES: No paraspinal fluid collections. CT/Spine Lumbar without Contrast IMPRESSION: No evidence for acute fracture or dislocation in the lumbar spine. Mild degenerative disc disease. Electronically Signed: Judi Figueroa MD at 14:02 EDT , CC: Dr. Zach San, ; [facility] Anatomy And Physiology Instructor: Signed Normal [facility] Emergency Department Summary on 07-16-2024 Emergency Department Summary [facility] Medical Records Department [address] [place] [address] Emergency Department Summary 07/16/24 MR#: [id number] Acct: [id number] Name: MANDA DENIS Rep #: [id number] : 1985 39 From: Wes Altman DO PCP: [facility] Status:REG ER Location: ED HPI History of Present Illness Chief Complaint: Back Narrative Narrative: Chief complaint and HPI: Lumbar back pain. 39-year-old male with with past medical history of back pain with as needed muscle relaxers presents for evaluation of left-sided lumbar back pain. 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 He states that a week ago he lifted something heavy in which he developed left lower back pain. Pain does not radiate down the legs or up the back. He denies any numbness or tingling. Denies any weakness. Denies any midline back pain. Denies any fever, chills, shortness of breath, chest pain abdominal pain, nausea, vomiting, incontinence/retent ion of urine or bowel. Patient states he has been taking Tylenol at home. He states he ran out of his muscle relaxers. Patient is hypertensive on arrival, he states that he ran out of his antihypertensives but that he called into his PCP and is getting it filled this weekend. He did not take his blood pressure medication today. He denies any headache, lightheadedness. Review of systems: See HPI Medications: As listed on the chart Allergies: As listed on the chart PFSH: Per chart Vital signs: As listed on the chart. Reviewed. Physical exam: Gen: A O x3, NAD Head: Normocephalic, atraumatic Eyes: No sclera icterus, conjunctiva clear, PERRL, EOMI ENT: Moist mucous membranes Neck: Trachea midline, No JVD, full range of motion, nontender CV: RRR, no murmurs, no peripheral edema Resp: Lungs CTA BL, no w/r/c GI: Abd soft, non-distended, non-tender, no r/r/g Musc: Full ROM, no deformity, normal gait, strength plus 5 out of 5 in all extremities, no midline spinal tenderness, no bony step-offs, patient is mildly tender to palpation of the lumbar paraspinal musculature on the left-muscles are tense-with palpation this recreates the patient's pain Skin: Warm, dry Neuro: Alert, oriented, grossly intact, sensation intact Psych: Cooperative, appropriate mood and affect [facility] Medical History Asthma Chest pain Chronic neck and back pain CPAP (continuous positive airway pressure) dependence Depression Fatigue Knee pain Limb weakness Lumbar strain Migraines Osteoporosis Right shoulder strain Shortness of breath Shoulder pain Sleep apnea Smoker Strain of right trapezius muscle Home Medications ???Medication ???Instructions ???Recorded ???Last Taken ???Type acetaminophen 325 mg tablet 650 mg PO Q6H 01/15/24 Unknown History (Tylenol) cholecalciferol (vitamin D3) 25 75 mcg PO DAILY 01/15/24 Unknown History mcg (1,000 unit) capsule tizanidine 4 mg capsule 4 mg PO Q6H PRN back spasms 01/15/24 Unknown History prednisone 20 mg tablet 20 mg PO BID #10 tabs 05/20/24 Unknown Rx Allergy/AdvReac Type Severity Reaction Status Date / Time Penicillins Allergy Mild Swelling Verified 07/16/24 18:11 Surgical History Previous back surgery History of embolic filter insertion H/O knee surgery Social History Smoking Status: Current every day smoker tobacco type: cigarettes alcohol intake: never EXAM Physical Exam Const Vital Signs: 07/16/24 18:09 07/16/24 22:22 Temperature 98.2 F Temperature Source Temporal Pulse Rate 90 75 Respiratory Rate 16 16 Blood Pressure 202/115 H 141/72 H Blood Pressure Mean 144 95 Pulse Ox 100 94 Oxygen Delivery Method Room Air Room Air MDM MDM MDM Narrative Medical decision making narrative: 39-year-old male presents for evaluation of back pain. There has been no direct trauma. There is nothing to suggest any infectious etiology. The patient is not an IV drug user. There is no neurologic findings to suggest an acute cauda equina syndrome, infectious etiology, or any acute radiculopathy. At this point I do not feel any emergent imaging such as x-rays or MRI are warranted. Patient symptoms will be treated with Toradol. He has already taken a muscle relaxer. On presentation, patient is hypertensive in the 200s. Patient states he ran out of his hypertensive medication but that it is cannot be filled this weekend. He is asymptomatic from his hypertension. Will give IV labetalol. I do not think any laboratory workup is needed at this time. Patient's blood pressure improved on its own to 141/72. He did not need labetalol. Patient has remained asymptomatic. On reexamination, his pain has improved. Pa (more content not included)... Normal [facility] 12 Lead EKGon 05-20-2024 12 Lead EKG [facility] Cardiovascular Services [address] [place] [address] 12 Lead EKG 05/20/24 0940 MR#: [id number] Acct: [id number] Name: MANDA DENIS Rep #: [id number] : 1985 39 From: Romina Horner MD Attending Dr: Status: DEP ER Ordering Dr: Quoc House DO Date: 05/20/24 Location: ED Sex: M AA Admitted: Test Reason : Blood Pressure : / mmHG Vent. Rate : 077 BPM Atrial Rate : 077 BPM P-R Int : 162 ms QRS Dur : 112 ms QT Int : 386 ms P-R-T Axes : 046 062 050 degrees QTc Int : 436 ms Normal sinus rhythm Normal ECG Confirmed by MARIO HIGGINBOTHAM, CARO ([id number]), commissioning editor VERONICA AGUILAR ([id number]) on 05/24/2024 8:43:03 AM Referred By: Confirmed By:CARMEN HORNER MD 05/24/24 0843 Date Romina Horner MD CC: Dr. Quoc House, DO; [facility] Signed Normal [facility] Basic Metabolic Profile (BMP )on 05-20-2024 BUN/CRE 15.0 RATIO Normal 10-20 [facility] Comment on above: Order Comment: 'TROP ' Serial specimen #1, #2 or #3: 1 Performed By: #### L 500.2500, L501.4020, L100.0100, L300.8000 #### [facility] [address] [place], [address] CA,Total 8.9 mg/dL Normal 8.5-10.1 [facility] Comment on above: Order Comment: 'TROP ' Serial specimen #1, #2 or #3: 1 Performed By: #### L 500.2500, L501.4020, L100.0100, L300.8000 #### [facility] [address] [place], [address] Chloride [Moles/Vol] 108 mmol/L High 98-107 [facility] Comment on above: Order Comment: 'TROP ' Serial specimen #1, #2 or #3: 1 Performed By: #### L 500.2500, L501.4020, L100.0100, L300.8000 #### [facility] [address] [place], [address] CO2 [Moles/Vol] 28.0 mmol/L Normal 21.0-32.0 [facility] Comment on above: Order Comment: 'TROP ' Serial specimen #1, #2 or #3: 1 Performed By: #### L 500.2500, L501.4020, L100.0100, L300.8000 #### [facility] [address] [place], [address] Creatinine [Mass/Vol] 1.00 mg/dL Normal 0.70-1.30 [facility] Comment on above: Order Comment: 'TROP ' Serial specimen #1, #2 or #3: 1 Result Comment: The validity of the calculated GFR GFRAA in patients over 70 years has not been determined. Clinical correlation is essential. Performed By: #### L 500.2500, L501.4020, L100.0100, L300.8000 #### [facility] [address] [place], [address] ECRCL 174.68 ml/min Normal [facility] Comment on above: Order Comment: 'TROP ' Serial specimen #1, #2 or #3: 1 Performed By: #### L 500.2500, L501.4020, L100.0100, L300.8000 #### [facility] [address] [place], [address] EST GFR - AA 106 mL/min Normal >60 [facility] Comment on above: Order Comment: 'TROP ' Serial specimen #1, #2 or #3: 1 Result Comment: Afri can Malaysian GFR Calc Performed By: #### L 500.2500, L501.4020, L100.0100, L300.8000 #### [facility] [address] [place], [address] GAP 2 Low 5-15 [facility] Comment on above: Order Comment: 'TROP ' Serial specimen #1, #2 or #3: 1 Performed By: #### L 500.2500, L501.4020, L100.0100, L300.8000 #### [facility] [address] [place], [address] GFR/1.73 sq M.predicted among non-blacks MDRD (S/P/Bld) [Vol rate/Area] 87 mL/min/{1.73_m2} Normal >60 [facility] Comment on above: Order Comment: 'TROP ' Serial specimen #1, #2 or #3: 1 Result Comment: Non- GFR Calc Performed By: #### L 500.2500, L501.4020, L100.0100, L300.8000 #### [facility] [address] [place], [address] Glucose [Mass/Vol] 92 mg/dL Normal 74-106 [facility] Comment on above: Order Comment: 'TROP ' Serial specimen #1, #2 or #3: 1 Performed By: #### L 500.2500, L501.4020, L100.0100, L300.8000 #### [facility] [address] [place], [address] Potassium [Moles/Vol] 4.1 mmol/L Normal 3.5-5.1 [facility] Comment on above: Order Comment: 'TROP ' Serial specimen #1, #2 or #3: 1 Performed By: #### L 500.2500, L501.4020, L100.0100, L300.8000 #### [facility] [address] [place], [address] Sodium [Moles/Vol] 138 mmol/L Normal 136-145 [facility] Comment on above: Order Comment: 'TROP ' Serial specimen #1, #2 or #3: 1 Performed By: #### L 500.2500, L501.4020, L100.0100, L300.8000 #### [facility] [address] [place], [address] Urea nitrogen [Mass/Vol] 15 mg/dL Normal 7-18 [facility] Comment on above: Order Comment: 'TROP ' Serial specimen #1, #2 or #3: 1 Performed By: #### L 500.2500, L501.4020, L100.0100, L300.8000 #### [facility] [address] [place], [address] CBC W/Diff, Automatedon 08-0 8-2023 Absolute Lymph 2.52 X10 3/uL Normal 0.83-4.51 [facility] Comment on above: Performed By: #### L 500.2500, L501.4020, L100.0100, L300.8000 #### [facility] [address] [place], [address] Absolute Neut 3.9 X10 3/uL Normal 2.0-7.7 [facility] Comment on above: Performed By: #### L 500.2500, L501.4020, L100.0100, L300.8000 #### [facility] [address] [place], [address] Basophils/100 WBC (Bld) 0.8 % Normal 0-1 [facility] Comment on above: Performed By: #### L 500.2500, L501.4020, L100.0100, L300.8000 #### [facility] [address] [place], [address] Eosinophils/100 WBC (Bld) 4.1 % Normal 0-5 [facility] Comment on above: Performed By: #### L 500.2500, L501.4020, L100.0100, L300.8000 #### [facility] [address] [place], [address] Erythrocyte distribution width (RBC) [Ratio] 13.4 % Normal 11.6-14.6 [facility] Comment on above: Performed By: #### L 500.2500, L501.4020, L100.0100, L300.8000 #### [facility] [address] [place], [address] Hematocrit (Bld) [Volume fraction] 37.4 % Low 40-54 [facility] Comment on above: Performed By: #### L 500.2500, L501.4020, L100.0100, L300.8000 #### [facility] [address] [place], [address] Hemoglobin (Bld) [Mass/Vol] 12.3 g/dL Low 13.0-16.5 [facility] Comment on above: Performed By: #### L 500.2500, L501.4020, L100.0100, L300.8000 #### [facility] [address] [place], [address] IG% 0.300 Normal 0.0-0.9 [facility] Comment on above: Result Comment: IG% - Immature Granulocytes (promyelocytes, myelocytes and metamyelocytes) > 1% indicates that a LEFT SHIFT is Present. Performed By: #### L 500.2500, L501.4020, L100.0100, L300.8000 #### [facility] [address] [place], [address] Lymphocytes/100 WBC (Bld) 34.8 % Normal 19-41 [facility] Comment on above: Performed By: #### L 500.2500, L501.4020, L100.0100, L300.8000 #### [facility] [address] [place], [address] MCH (RBC) [Entitic mass] 29.4 pg Normal 27.0-32.0 [facility] Comment on above: Performed By: #### L 500.2500, L501.4020, L100.0100, L300.8000 #### [facility] [address] [place], [address] MCHC (RBC) [Mass/Vol] 32.9 g/dL Normal 32-36 [facility] Comment on above: Performed By: #### L 500.2500, L501.4020, L100.0100, L300.8000 #### [facility] [address] [place], [address] MCV (RBC) [Entitic vol] 89.5 fL Normal 80-94 [facility] Comment on above: Performed By: #### L 500.2500, L501.4020, L100.0100, L300.8000 #### [facility] [address] [place], [address] Monocytes/100 WBC (Bld) 5.9 % Normal 0-10 [facility] Comment on above: Performed By: #### L 500.2500, L501.4020, L100.0100, L300.8000 #### [facility] [address] [place], [address] Neutrophils/100 WBC (Bld) 54.1 % Normal 47-70 [facility] Comment on above: Performed By: #### L 500.2500, L501.4020, L100.0100, L300.8000 #### [facility] [address] [place], [address] Nucleated RBC (Bld) [#/Vol] 0 10*3/uL Normal 0-5 [facility] Comment on above: Performed By: #### L 500.2500, L501.4020, L100.0100, L300.8000 #### [facility] [address] [place], [address] Platelet mean volume (Bld) [Entitic vol] 11.0 fL Normal 6.2-12.0 [facility] Comment on above: Performed By: #### L 500.2500, L501.4020, L100.0100, L300.8000 #### [facility] [address] [place], [address] Platelets (Bld) [#/Vol] 221 10*3/uL Normal 150-450 [facility] Comment on above: Performed By: #### L 500.2500, L501.4020, L100.0100, L300.8000 #### [facility] [address] [place], [address] RBC (Bld) [#/Vol] 4.18 10*6/uL Low 4.6-6.2 [facility] Comment on above: Performed By: #### L 500.2500, L501.4020, L100.0100, L300.8000 #### [facility] [address] [place], [address] RDW SD 44.0 fl High 35.1-43.9 [facility] Comment on above: Performed By: #### L 500.2500, L501.4020, L100.0100, L300.8000 #### [facility] [address] [place], [address] WBC (Bld) [#/Vol] 7.2 10*3/uL Normal 4.4-11.0 [facility] Comment on above: Performed By: #### L 500.2500, L501.4020, L100.0100, L300.8000 #### [facility] [address] [place], [address] Chest 1 View (Portable)on Chest 1 View (Portable) [facility] Imaging Services [address] [place] [address] Chest 1 View (Portable) MR#: [id number] Acct: [id number] Name: MANDA DENIS Rep #: [id number] : 1985 M 39 From: Brandyn Lemus MD PCP: [facility] Status: [facility] ER Study: Chest 1 View (Portable) Date of Exam: 05/20/24 Exam# [id number] Ordering Dr: Quoc House DO -[id number] EXAM: XR CHEST, 1 VIEW CLINICAL INDICATION: dyspnea TECHNIQUE: Frontal view of the chest. COMPARISON: No relevant prior studies available. FINDINGS: LUNGS AND PLEURAL SPACES: Unremarkable. No consolidation or edema. No pneumothorax. No effusion. HEART: Unremarkable. Cardiac silhouette not enlarged. MEDIASTINUM: Central airways and mediastinal contour are unremarkable. BONES/JOINTS: Unremarkable. No acute fracture. SOFT TISSUES: Unremarkable. RAD/Chest 1 View (Portable) IMPRESSION: No radiographic evidence of acute cardiopulmonary disease. Electronically Signed: Brandyn Lemus MD at 10:39 EDT , CC: Dr. Quoc House DO; [facility] Anatomy And Physiology Instructor: Signed Normal [facility] D-Dimer Quantitative (DVT/PE )on 05-20-2024 D-DIMER QUANT 0.40 FEU/ug/m Normal 0.27-0.49 [facility] Comment on above: Result Comment: NORM AL D-Dimer level (<0.50) indicates no DVT or PE. Performed By: #### L 500.2500, L501.4020, L100.0100, L300.8000 #### [facility] [address] [facility] [place], [address] Emergency Department Summary on 05-20-2024 Emergency Department Summary [facility] Medical Records Department [address] [place] [address] Emergency Department Summary 05/20/24 MR#: [id number] Acct: [id number] Name: MANDA DENIS Rep #: [id number] : 1985 39 From: Quoc House DO PCP: [facility] Status:DEP ER Location: ED HPI History of Present Illness Chief Complaint: Asthma Detail of Chief Complaint: Shortness of breath and chest pain Informant: patient Narrative Narrative: Patient presents to the emergency department complaint shortness of breath and chest pain. Patient states that last evening he had a low-grade fever up to 99 at home. This morning he woke up feeling fine. Progressively developed some shortness of breath and a cough. Developed right sided chest pain as sharp and numb like. Denies recent travel or surgery. No history of PE or DVT. No heart history. Patient denies sick contacts. [facility] Medical History Asthma Chest pain Chronic neck and back pain CPAP (continuous positive airway pressure) dependence Depression Fatigue Knee pain Limb weakness Lumbar strain Migraines Osteoporosis Right shoulder strain Shortness of breath Shoulder pain Sleep apnea Smoker Strain of right trapezius muscle Home Medications ???Medication ???Instructions ???Recorded ???Last Taken ???Type acetaminophen 325 mg tablet 650 mg PO Q6H 01/15/24 Unknown History (Tylenol) cholecalciferol (vitamin D3) 25 75 mcg PO DAILY 01/15/24 Unknown History mcg (1,000 unit) capsule tizanidine 4 mg capsule 4 mg PO Q6H PRN back spasms 01/15/24 Unknown History prednisone 20 mg tablet 20 mg PO BID #10 tabs 05/20/24 Unknown Rx Allergy/AdvReac Type Severity Reaction Status Date / Time Penicillins Allergy Mild Swelling Verified 05/20/24 09:24 Family History no significant family his Surgical History Previous back surgery History of embolic filter insertion H/O knee surgery Social History Smoking Status: Current every day smoker tobacco type: cigarettes alcohol intake: never ROS ROS ED Review of Systems ROS Unobtainable: other Constitutional Constitutional ED: Reports chills, fever(s), lethargy and sweats; Denies weight loss Eyes Eyes: Denies blurry vision, change in vision or diplopia ENT ENT ED: Denies rhinorrhea or sore throat Cardiovascular Cardiovascular: Reports chest pain; Denies orthopnea or racing heartbeat Respiratory/Chest Respiratory/Chest: Reports cough, dyspnea and dyspnea on exertion; Denies orthopnea or sputum Gastrointestinal Gastrointestinal: Denies abdominal pain, diarrhea, nausea or vomiting Genitourinary Genitourinary ED: Denies dysuria, hematuria or urinary frequency Musculoskeletal Musculoskeletal: Denies arthralgias, back pain, myalgias or neck pain Integumentary Denies abscess, Abrasions or rash Neurologic Neurologic: Denies headache(s) or weakness Psychiatric Psychiatric: Denies anxiety, depression or suicidal thoughts Endocrine Endocrinology: Denies polydipsia, polyphagia or polyuria Hematologic/Lymphat ic Hematologic/Lymphat ic: Denies easy bleeding, easy bruising or lymphadenopathy Allergic/Immunologi c Allergic/Immunologi c ED: Denies mouth swelling, tongue swelling or urticaria EXAM Physical Exam Const Vital Signs: 05/20/24 09:24 05/20/24 09:24 05/20/24 09:32 Temperature 98 F Temperature Source Temporal Pulse Rate 83 Respiratory Rate 14 Respiratory Effort Non-Labored Short of Breath Respiratory Depth Normal Respiratory Pattern Normal Blood Pressure 186/95 H Blood Pressure Mean 125 Pulse Ox 99 Oxygen Delivery Method Room Air Room Air Room Air 05/20/24 09:39 05/20/24 09:39 Temperature Temperature Source Pulse Rate 79 Respiratory Rate 18 Respiratory Effort Respiratory Depth Respiratory Pattern Blood Pressure Blood Pressure Mean Pulse Ox 99 Oxygen Delivery Method Room Air Positive well nourished and well developed General Appearance ED: well developed and NAD HEENT Reports TM's clear and moist mucous membranes normocephalic and atraumatic; Negative for trauma or tenderness Tympanic Membrane ED: Yes TM's clear Eyes PERRL and EOMs intact bilaterally General Eye ED: Negative for pale conjunctiva or scleral icterus Neck no lymphadenopathy, supple and no JVD General: Negative for tenderness Chest Wall inspection of chest normal and palpation of chest normal Chest: Negative for tenderness Resp normal respiratory effort and No clear to auscultation bilaterally Effort and Inspection: Negative for respiratory distress or pain with movement Auscultation: wheezes; Negativ (more content not included)... Normal [facility] L501.4020on 05-20-2024 TROPONIN-I HS 6 pg/mL Normal 3.0-78.0 [facility] Comment on above: Order Comment: 'TROP ' Serial specimen #1, #2 or #3: 1 Result Comment: Plea se Note: New Test Units and Gender Specific Reference Ranges. For more information see Policy Stat Procedure [place] High Sensitivity Troponin (TNIH) and attachments. Performed By: #### L 500.2500, L501.4020, L100.0100, L300.8000 #### [facility] [address] [place], [address] M100.678on 05-20-2024 M100.678 SARS-CoV-2 (COVID 19) Negative INFLUENZA A Negative INFLUENZA B Negative RSV PCR Negative Normal [facility] Comment on above: Performed By: #### M 100.678 #### [facility] [address] [place], [place], [id number] SARS-CoV-2 (COVID-19) Ag IA. rapid Ql (Resp)Ordered By: Avinash Olmos on 06-19-2023 SARS-CoV-2 Antigen (Rapid) SARS-CoV-2 (COVID 19) [facility] Vital Signs Date Time Vital Sign Value Performing Clinician Facility 02-15-2025 20:13-0400 Body temperature 97.3 [degF] [facility] 02-15-2025 20:13-0400 Diastolic blood pressure 94 mm[Hg] [facility] 02-15-2025 20:13-0400 Heart rate 75 /min [facility] 02-15-2025 20:13-0400 Respiratory rate 18 /min [facility] 02-15-2025 20:13-0400 SaO2% (BldA) [Mass fraction] 99 % [facility] 02-15-2025 20:13-0400 Systolic blood pressure 182 mm[Hg] [facility] 02-15-2025 17:45-0400 Body mass index (BMI) [Ratio] 48.4 kg/m2 [facility] 02-15-2025 17:45-0400 Body weight 190 kg [facility] 02-15-2025 17:24-0400 Body height 198.12 cm [facility] 01-22-2025 14:10-0400 Body temperature 97.8 [degF] [facility] 01-22-2025 14:10-0400 Diastolic blood pressure 78 mm[Hg] [facility] 01-22-2025 14:10-0400 Heart rate 64 /min [facility] 01-22-2025 14:10-0400 Respiratory rate 18 /min [facility] 01-22-2025 14:10-0400 SaO2% (BldA) [Mass fraction] 99 % [facility] 01-22-2025 14:10-0400 Systolic blood pressure 143 mm[Hg] [facility] 01-22-2025 12:10-0400 Body height 198.12 cm [facility] 11-07-2024 14:04-0500 Body mass index (BMI) [Ratio] 44.4 kg/m2 [facility] 11-07-2024 14:04-0500 Body temperature 98.9 [degF] [facility] 11-07-2024 14:04-0500 Body weight 174.17 kg [facility] 11-07-2024 14:04-0500 Diastolic blood pressure 100 mm[Hg] [facility] 11-07-2024 14:04-0500 Heart rate 80 /min [facility] 11-07-2024 14:04-0500 Respiratory rate 18 /min [facility] 11-07-2024 14:04-0500 SaO2% (BldA) [Mass fraction] 98 % [facility] 11-07-2024 14:04-0500 Systolic blood pressure 162 mm[Hg] [facility] 01-15-2024 21:53-0400 Body temperature 98.3 [degF] [facility] 01-15-2024 21:53-0400 Diastolic blood pressure 88 mm[Hg] [facility] 01-15-2024 21:53-0400 Heart rate 75 /min [facility] 01-15-2024 21:53-0400 Respiratory rate 14 /min [facility] 01-15-2024 21:53-0400 SaO2% (BldA) [Mass fraction] 99 % [facility] 01-15-2024 21:53-0400 Systolic blood pressure 157 mm[Hg] [facility] 01-15-2024 21:09-0400 Body height 198.12 cm [facility] 01-15-2024 21:09-0400 Body mass index (BMI) [Ratio] 45.3 kg/m2 [facility] 01-15-2024 21:09-0400 Body weight 178.26 kg [facility] 11-22-2023 19:53-0500 Heart rate 86 /min [facility] 11-22-2023 19:53-0500 Respiratory rate 18 /min [facility] 11-22-2023 19:53-0500 SaO2% (BldA) [Mass fraction] 97 % [facility] 11-22-2023 17:23-0500 Body height 5550.41 cm [facility] 11-22-2023 17:23-0500 Body mass index (BMI) [Ratio] 0 kg/m2 [facility] 11-22-2023 17:23-0500 Body temperature 99 [degF] [facility] 11-22-2023 17:23-0500 Body weight 2.89 kg [facility] 11-22-2023 17:23-0500 Diastolic blood pressure 121 mm[Hg] [facility] 11-22-2023 17:23-0500 Systolic blood pressure 193 mm[Hg] [facility] 10-21-2023 19:15-0500 Body height 198.12 cm [facility] 10-21-2023 19:15-0500 Body mass index (BMI) [Ratio] 43.9 kg/m2 [facility] 10-21-2023 19:15-0500 Body temperature 97.5 [degF] [facility] 10-21-2023 19:15-0500 Body weight 172.36 kg [facility] 10-21-2023 19:15-0500 Diastolic blood pressure 99 mm[Hg] [facility] 10-21-2023 19:15-0500 Heart rate 85 /min [facility] 10-21-2023 19:15-0500 Respiratory rate 16 /min [facility] 10-21-2023 19:15-0500 SaO2% (BldA) [Mass fraction] 99 % [facility] 10-21-2023 19:15-0500 Systolic blood pressure 192 mm[Hg] [facility] 06-19-2023 23:05-0400 Body height 198.12 cm YESI KEY Work Phone: [facility] 06-19-2023 23:05-0400 Body mass index (BMI) [Ratio] 43.3 kg/m2 PA Robbie Webster PA Work Phone: [facility] 06-19-2023 23:05-0400 Body temperature 98.8 [degF] PA Robbie Webster PA Work Phone: [facility] 06-19-2023 23:05-0400 Body weight 170.09 kg PA Robbie Webster PA Work Phone: [facility] 06-19-2023 23:05-0400 Diastolic blood pressure 90 mm[Hg] PA Robbie Wbester PA Work Phone: [facility] 06-19-2023 23:05-0400 Heart rate 99 /min PA Robbie Webster PA Work Phone: [facility] 06-19-2023 23:05-0400 Respiratory rate 16 /min PA Robbie Webster PA Work Phone: [facility] 06-19-2023 23:05-0400 SaO2% (BldA) [Mass fraction] 99 % PA Robbie Webster PA Work Phone: [facility] 06-19-2023 23:05-0400 Systolic blood pressure 156 mm[Hg] PA Robbie Webster PA Work Phone: [facility] 03-18-2023 13:38-0400 Body height 198.1 cm [employer]OO [employer] DO [facility] 03-18-2023 13:38-0400 Body temperature 98.06 [degF] WOO [employer] DO [facility] 03-18-2023 13:38-0400 Body weight 180.5 kg WOO [employer] DO [facility] 03-18-2023 13:38-0400 Diastolic Blood Pressure Non-Invasive 90 1 [facility] 03-18-2023 13:38-0400 Heart rate 92 /min WOO WARNER DO [facility] 03-18-2023 13:38-0400 Respiratory rate 18 /min [facility] 03-18-2023 13:38-0400 Systolic Blood Pressure Non-Invasive 151 1 [facility] 03-18-2023 11:46-0400 Body temperature 97.7 [degF] PA Robbie KEY Work Phone: [facility] 03-18-2023 11:46-0400 Body weight 180.18 kg PA Robbie KEY Work Phone: [facility] 03-18-2023 11:46-0400 Diastolic blood pressure 88 mm[Hg] PA Robbie KEY Work Phone: [facility] 03-18-2023 11:46-0400 Heart rate 92 /min PA Robbie Webster PA Work Phone: [facility] 03-18-2023 11:46-0400 Respiratory rate 16 /min PA Robbie KEY Work Phone: [facility] 03-18-2023 11:46-0400 SaO2% (BldA) [Mass fraction] 97 % PA Robbie KEY Work Phone: [facility] 03-18-2023 11:46-0400 Systolic blood pressure 146 mm[Hg] PA Robbie KEY Work Phone: [facility] Encounters Encounter Date Encounter Type Care Provider Facility Start: 02-15-2025 End: 02-15-2025 [facility] Start: 01-22-2025 End: 01-22-2025 Emergency department patient visit [facility] -Emergency Department Work Phone: Start: 11-07-2024 End: 11-07-2024 Emergency department patient visit [facility] -Emergency Department Work Phone: Start: 07-27-2024 End: 07-27-2024 Emergency department patient visit Zach San Facility:[facility] Start: 07-16-2024 End: 07-16-2024 Emergency department patient visit [facility] Facility:[facility] Start: 05-20-2024 End: 05-20-2024 Emergency department patient visit [facility] Facility:[facility] Start: 01-15-2024 End: 01-15-2024 Emergency department patient visit [facility] Work Phone: Start: 11-22-2023 End: 11-22-2023 Emergency department patient visit [facility] Work Phone: Start: 10-21-2023 End: 10-21-2023 Emergency department patient visit [facility] Work Phone: Start: 06-19-2023 End: 06-20-2023 Emergency department patient visit YESI KEY Work Phone: [facility] Work Phone: Start: 03-18-2023 End: 03-18-2023 [facility] Start: 03-18-2023 End: 03-18-2023 Emergency department [facility] Start: 03-18-2023 End: 03-18-2023 Patient encounter procedure YESI KEY Work Phone: [facility] Work Phone: Procedures Date Procedure Procedure Detail Performing Clinician Start: 02-15-2025 X-ray of chest, PA a nd lateral views [facility] Start: 01-22-2025 SARS-CoV-2, Influenz a & RSV (PCR) [facility] Start: 01-15-2024 Radiologic examinati on of knee Start: 06-19-2023 Viral antigen assay YESI KEY Work Phone: Plan of Treatment Date Care Activity Detail Author Start: 02-15-2025 [facility] Start: 02-15-2025 [facility] Start: 01-22-2025 [facility] Start: 01-15-2024 [facility] Start: 11-22-2023 [facility] Start: 10-21-2023 [facility] Start: 06-19-2023 [facility] Patient Education [facility] Work Phone: Patient referral [facility] Work Phone: Payers Date Payer Category Payer Self-pay 2024 Unknown [id number] 2023 Unknown [id number] 1985 Unknown [id number] Unknown [facility] [employer] [facility] [employer] 1 [id number] Unknown [id number] Unknown [id number] Unknown [id number] Unknown [id number] Unknown [id number] Unknown [id number] Social History Date Type Detail Facility Tobacco smoking status [facility] Start: 1985 Sex Assigned At Male A [facility] Start: 06-19-2023 End: 01-15-2024 Tobacco smoking status NHIS Unknown if ever smoked [facility] Start: 01-22-2025 End: 02-15-2025 Tobacco smoking status NHIS Smokes tobacco daily (finding) [facility] Start: 01-22-2025 End: 02-15-2025 Sex Male (finding) [facility] Functional Status Date Assessment Result Facility 03-18-2023 Functional Status Safety level maintained [facility] Mental Status Date Assessment Result Facility 02-15-2025 Cognitive function Level Of Cons ciousness Awake;Alert;Appropriate;Follow s Commands [facility] Work Phone: 01-22-2025 Cognitive function Level Of Cons ciousness Awake;Alert;Appropriate;Follow s Commands [facility] Work Phone: 06-19-2023 Cognitive function Level Of Cons ciousness Awake;Alert;Appropriate;Follow s Commands [facility] Work Phone: 03-18-2023 Mental Status Oriented x 4 [facility] Clinical Notes 03-18-2023 to 02-15-2025 Note Date & Type Note Facility 02-15-2025 Radiology Diagnostic study note [facility] [address] [place] [address] Chest PA and Lateral MR#: [id number] Acct: [id number] Name: MANDA DENIS Rep #: [id number] : 1985 M 40 From: Jeannie Isbell MD PCP: [facility] Status: PRE ER Study:Chest PA and Lateral Date of Exam: 02/15/25 Exam# [id number] Ordering Dr: Jelena Francis MD PROCEDURE: CHEST PA AND LATERAL 02/15/2025 REASON FOR EXAM: CHEST PAIN TECHNIQUE: Frontal and lateral views of the chest. COMPARISON: 05/20/2024 FINDINGS: Lungs: Lungs clear of pneumonia and congestion. Pleura: No pleural effusions, thickening, or pneumothorax. Heart: Mild cardiac enlargement. Mediastinum/Mary: Unremarkable. Great vessels: Unremarkable. Bones/soft tissues: Unremarkable. Cardiac monitoring leads overlie the chest wall. RAD/Chest PA and Lateral IMPRESSION: No active cardiopulmonary disease Mild cardiac enlargement. Reading Location: [facility] CC: Dr. Jony Francis MD; [facility] ~ Anatomy And Physiology Instructor: Signed [facility] 02-15-2025 Hospital Discharg e instructions Additional Instructions Your labs chest x-ray and EKG look good. I think this is secondary to undiagnosed previously high blood pressure. We will start you on a blood pressure medication called hydrochlorothiazide. I would take in the morning because going to make you pee. That should help decrease the swelling in your legs and bring down your blood pressure. Check your blood pressure in the morning in the evening. If it is running low meaning below 100 we may have to stop the medication or change it. If it continues to run high they may have to adjusted and increase the dose of the medication. Follow-up with either your [place] doctor or a local physician for further evaluation of this. You may also need other testing like an echocardiogram which is an ultrasound your heart to make sure that is not the cause of the swelling in your legs. [facility] Work Phone: 01-15-2024 Discharge summary Note Date/Time January 15, 2024 9:30pm [facility] Medical Records Department [address] [place] [address] Emergency Department Summary 01/15/24 MR#: [id number] Acct: [id number] Name: MANDA DENISLANDO Rep #:[id number] : 1985 39 From: Avinash Olmos MD PCP: [facility] Status:PRE ER Location: ED HPI History of Present Illness Chief Complaint: Lower Extremity Injury Informant: patient Narrative Narrative: Patient presents just after an injury to his right knee. He was at work, he waslifting a box that weighed maybe 20 or 30 pounds according to his estimate, and he felt a pop in his knee gradual onset of pain subsequently. Hurts to walk he is able. No other injuries. No history of knee problems prior to this. [facility] Medical History Asthma Chest pain Chronic neck and back pain CPAP (continuous positive airway pressure) dependence Depression Fatigue Knee pain Limb weakness Lumbar strain Migraines Osteoporosis Right shoulder strain Shortness of breath Shoulder pain Sleep apnea Smoker Strain of right trapezius muscle Home Medications acetaminophen 325 mg tablet (Tylenol) 650 mg PO Q6H 01/15/24 [History Last Taken Unknown] cholecalciferol (vitamin D3) 25 mcg (1,000 unit) capsule 75 mcg PO DAILY 01/15/24 [History Last Taken Unknown] tizanidine 4 mg capsule 4 mg PO Q6H PRN back spasms 01/15/24 [History Last Taken Unknown] Allergy/AdvReac Type Severity Reaction Status Date / Time Penicillins Allergy Mild Swelling Verified 01/15/24 21:11 Surgical History (Updated 01/15/24 @ 21:17 by Camelia Badillo) H/O knee surgery History of embolic filter insertion Previous back surgery Social History Smoking Status: Current every day smoker tobacco type: cigarettes alcohol intake: never ROS ROS ED Constitutional Constitutional ED: Denies chills or fever(s) Musculoskeletal Musculoskeletal: Reports extremity pain; Denies neck pain Integumentary Denies Abrasions, rash or wounds Neurologic Neurologic: Denies paresthesias or weakness EXAM Physical Exam Const Vital Signs: 01/15/24 21:09 Temperature 98.1 F Temperature Source Temporal Pulse Rate 85 Respiratory Rate 18 Blood Pressure 166/88 H Blood Pressure Mean 114 Pulse Ox 99 Oxygen Delivery Method Room Air Positive well nourished and well developed General Appearance ED: well developed and NAD Neck full ROM and supple Back/Spine normal ROM and normal to inspection Extremity Extremity Narrative: Pain and tenderness mostly at the lateral joint line of the right knee, not so much anteriorly. No effusion. Extensor mechanism intact. No other bony tenderness. All ligaments with short endpoints and stable on stressing, he has more pain laterally with stressing the MCL and pushing on the lateral aspect then with stressing the LCL. Negative Yue, negative posterior drawer sign. Limited flexion at extreme due to pain. No obvious asymmetry/swelling. Neurovascularly intact distally. Neuro oriented x3, no focal motor deficits and no sensory deficits noted Sensorium / Orientation: alert Psych mental status grossly normal and thought process normal Skin no wounds Rashes: no rashes MDM MDM MDM Narrative Medical decision making narrative: 4 view x-ray series of the right knee were obtained and on my interpretation arenegative for any acute fracture or large effusion. Patient reassured given an kiersten wrap, anti-inflammatory dose, and will be given work restrictions advise follow-up with [facility], differential includes meniscus injury but also could simply be a sprain that will get better with time and rest. Follow-up advised. Discharge Plan Triage Chief Complaint: Lower Extremity Injury ED Provider: Avinash Olmos Dx/Rx/DC Orders Clinical Impression: Right knee sprain Instructions: ED Knee Sprain Prescriptions: No Action tizanidine 4 mg capsule 4 mg PO Q6H PRN (Reason: back spasms) Rx Instructions: do not exceed 3 doses per 24 hrs cholecalciferol (vitamin D3) 25 mcg (1,000 unit) capsule 75 mcg PO DAILY acetaminophen [Tylenol] 325 mg tablet 650 mg PO Q6H Primary Care Provider: [facility] Referrals: [facility] [place] [Group of Physicians] - [facility] [Primary Care Provider] - Disposition Disposition: Home, Self Care What to do if you have Problems For any increased pain, shortness of breath, bleeding, nausea or vomiting, chestpain, or any unexpected problems, contact your Primary Care Provider. Call [facility] ([phone]) or report to the closest Emergency Room. Call 911 if necessary. 01/15/242139 <Electronically signed by Avinash Olmos MD> Cosigner Signature (if applicable): CC: [facility] ~ Signed [facility] Work Phone: [phone] Discharge summary Author Dariel Martinez [facility] November 22, 2023 7:16pm Note Date/Time November 22, 2023 7:14pm [facility] Medical Records Department [address] [place] [address] Emergency Department Summary 11/22/23 MR#: [id number] Acct: [id number] Name: MANDA DENIS Rep #:[id number] : 1985 38 From: Dariel Martinez MD PCP: [place] Hospital Status:REG ER Location: ED HPI History of Present Illness Chief Complaint: Dental Informant: patient Narrative Narrative: Patient presents with right lower dental pain. Is been hurting for 3 weeks. Hehas not seen anyone yet. He states it just hurts to talk or chew but he is eating and drinking. No fevers or chills. No trouble swallowing or handling secretions. He is still working. Of note, he prefers to give a lot of his history by typing on the phone. But heis able to speak fine. PFSH PFSH Medical History Chronic neck and back pain Fatigue Knee pain Limb weakness Lumbar strain Right shoulder strain Shortness of breath Shoulder pain Strain of right trapezius muscle Home Medications clindamycin HCl 300 mg capsule (Cleocin HCl) 300 mg PO Q6H #40 CAPSULES 11/22/23[Rx Last Taken Unknown] naproxen 500 mg tablet (Naprosyn) 500 mg PO BID PRN pain #20 tabs 11/22/23 [Rx Last Taken Unknown] Allergy/AdvReac Type Severity Reaction Status Date / Time Penicillins Allergy Mild Swelling Verified 11/22/23 17:22 Surgical History H/O knee surgery Social History Smoking Status: Current every day smoker tobacco type: cigarettes alcohol intake: never ROS ROS ED Constitutional Constitutional ED: Denies chills or fever(s) Eyes Eyes: Denies change in vision ENT ENT ED: Reports other Details: See history of present illness Cardiovascular Cardiovascular: Denies chest pain, palpitations or racing heartbeat Respiratory/Chest Respiratory/Chest: Denies cough or dyspnea Gastrointestinal Gastrointestinal: Denies nausea or vomiting Integumentary Denies rash Hematologic/Lymphatic Hematologic/Lymphatic: Denies easy bleeding, easy bruising or lymphadenopathy EXAM Physical Exam Narrative Exam Narrative: General: Patient awake alert no acute distress lying back on the bed comfortably. HEENT: No external swelling or redness. He does have a hole in his posterior molar on the right. There is some mild gum erythema but no swelling. No sign of Dao's angina. He can open and close well. No trismus. Tongue motion is normal. Neck shows no lymphadenopathy Lungs are clear bilaterally and sats are normal 95% on room air showing no hypoxia. Heart is regular. Abdomen is obese but benign. Const Vital Signs: 11/22/23 17:23 Temperature 99 F Temperature Source Temporal Pulse Rate 74 Respiratory Rate 22 H Blood Pressure 193/121 H Blood Pressure Mean 145 Pulse Ox 95 Oxygen Delivery Method Room Air MDM MDM MDM Narrative Medical decision making narrative: Patient we treat his dental infection. No sign of Sameer's. We also told him he needs to follow-up and get his blood pressure checked. Of note, his online prescribing review is negative for any controlled substances. Discharge Plan Triage Chief Complaint: Dental ED Provider: Dariel Martinez Dx/Rx/DC Orders Clinical Impression: Abscess, dental Instructions: Dental Abscess Prescriptions: New clindamycin HCl [Cleocin HCl] 300 mg capsule 300 mg PO Q6H Qty: 40 0RF naproxen [Naprosyn] 500 mg tablet 500 mg PO BID PRN (Reason: pain) Qty: 20 0RF Primary Care Provider: [facility] [Primary Care Provider] - As soon as possible Activity Restrictions/Additional Instructions: Follow-up with dentist. Disposition Disposition: Home, Self Care What to do if you have Problems For any increased pain, shortness of breath, bleeding, nausea or vomiting, chestpain, or any unexpected problems, contact your Primary Care Provider. Call [facility] ([phone]) or report to the closest Emergency Room. Call 911 if necessary. 11/22/231915 <Electronically signed by Dariel Martinez MD> Cosigner Signature (if applicable): CC: [facility] ~ Signed [facility] Work Phone: 1(614) 582-418101-09-2024 Discharge summary Author Zach San [facility] October 21, 2023 9:26pm Note Date/Time October 21, 2023 8: 46pm [facility] Medical Records Department [address] [place] [address] Emergency Department Summary 10/21/23 MR#: [id number] Acct: [id number] Name: MANDA DENIS Rep #:[id number] : 1985 38 From: Zach Segal PCP: [facility],[place] Status:REG ER Location: ED HPI <YESI Zhang - Last Filed: 10/21/23 21:04> History of Present Illness Chief Complaint: Ear Problem Narrative Narrative: Patient presenting due to right ear pain that started 3 days ago. He reports that the pain is sharp. He denies any injury to his ear. He reports that he had a cough last week but his symptoms have resolved. He denies any fevers or chills. PFSH <YESI Zhang - Last Filed: 10/21/23 21:04> [facility] Medical History Chronic neck and back pain Fatigue Knee pain Limb weakness Lumbar strain Right shoulder strain Shortness of breath Shoulder pain Strain of right trapezius muscle Home Medications nirmatrelvir 300 mg (150 mg x2)-ritonavir 100 mg tablet,dose pack (Paxlovid) SeeRx Instructions PO .COMPLEX #30 tabs 06/20/23 [Rx Last Taken Unknown] Allergy/AdvReac Type Severity Reaction Status Date / Time Penicillins Allergy Mild Swelling Verified 10/21/23 19:16 Surgical History H/O knee surgery Social History Smoking Status: Current every day smoker tobacco type: cigarettes alcohol intake: never ROS <YESI Zhang - Last Filed: 10/21/23 21:04> ROS ED Constitutional Constitutional ED: Denies chills or fever(s) ENT ENT ED: Reports ear pain right; Denies rhinorrhea or sore throat Cardiovascular Cardiovascular: Denies chest pain Respiratory/Chest Respiratory/Chest: Denies cough or dyspnea Gastrointestinal Gastrointestinal: Denies abdominal pain, nausea or vomiting Musculoskeletal Musculoskeletal: Denies arthralgias or myalgias Integumentary Denies rash Neurologic Neurologic: Denies weakness EXAM <YESI Zhang - Last Filed: 10/21/23 21:04> Physical Exam Const Vital Signs: 10/21/23 19:15 Temperature 97.5 F L Temperature Source Temporal Pulse Rate 85 Respiratory Rate 16 Blood Pressure 192/99 H Blood Pressure Mean 130 Pulse Ox 99 Oxygen Delivery Method Room Air Positive well nourished, well developed and no apparent distress General Appearance ED: well developed HEENT Reports normocephalic, head/scalp atraumatic and TM's clear HEENT Narrative: No mastoid tenderness bilaterally, no pain with R tragal or pinna movement. Tympanic Membrane ED: Yes TM's clear bilateral Mouth ED: Yes moist mucous membranes normal Eyes PERRL and EOMs intact bilaterally Neck full ROM and supple Chest Wall inspection of chest normal Resp normal respiratory effort and clear to auscultation bilaterally Cardio regular rate and regular rhythm GI soft to palpation, non-tender, non-distended and no masses Back/Spine normal ROM and normal to inspection Extremity normal to inspection and full ROM Neuro oriented x3, CN's II-XII intact bilaterally, moves all extremities, no focal motor deficits and no sensory deficits noted Sensorium / Orientation: awake and alert Psych mental status grossly normal and thought process normal Skin no rashes or lesions noted and no wounds <Dr. Zach San, - Last Filed: 10/21/23 21:26> Physical Exam Const Vital Signs: 10/21/23 19:15 Temperature 97.5 F L Temperature Source Temporal Pulse Rate 85 Respiratory Rate 16 Blood Pressure 192/99 H Blood Pressure Mean 130 Pulse Ox 99 Oxygen Delivery Method Room Air [facility] <YESI Zhang - Last Filed: 10/21/23 21:04> [facility] Narrative Medical decision making narrative: Patient presenting with ear pain over the past 3 days. He is well-appearing andin no acute distress. Blood pressure is high but otherwise vitals are remarkable. Bilateral TMs are clear, no signs of otitis media or externa. No mastoid tenderness bilaterally. No cerumen impaction. There is no rash. He isnot having any muffled hearing. He will be given Otocort suspension to use overthe next few days. I will give him an ENT referral. He can also use warm compresses on his ear. He has been given return instructions and will be discharged home in stable condition. He is comfortable with plan. <Dr. Zach San DO - Last Filed: 10/21/23 21:26> [facility] Narrative Medical decision making narrative: Patient presenting with ear pain over the past 3 days. He is well-appearing andin no acute distress. Blood pressure is high but otherwise vitals are remarkable. Bilateral TMs are clear, no signs of otitis media or externa. No mastoid tenderness bilaterally. No cerumen impaction. There is no rash. He isnot having any muffled hearing. He will be given Otocort suspension to use overthe next few days. I will give him an ENT referral. He can also use warm compresses on his ear. He has been given return instructions and will be discharged home in stable condition. He is comfortable with plan. I have personally performed a face to face assessment of the patient and have reviewed the LATASHA Note. I performed a substantive portion of the visit including all aspects of the following. My rouse findings include: History is patient presenting with 3 days of ear pain. No trauma. He notes some pain when he moves the ear. He states the pain gets better when he pushes on the ear canal area. No sore throat. He does note some discomfort in both the forehead and maxillary region of the right face but not the chin. No visionchanges. No tip of the nose tingling or sensory change. Exam is tympanic membrane's appear normal. I do not see any significant amount of debris or cerumen in the ear canal. The mastoid is not tender. No rash. There is an area at the 6 o'clock position of the ear canal close to the tympanic membrane appears to have a focal amount of irritation. Medical Decison Making we can try some Cortisporin otic. I do not see a severe otitis externa. We talked about shingles/varicella. We talked about Giraldo's palsy. If no improvement after several days of Cortisporin would recommend follow-up Discharge Plan Triage Chief Complaint: Ear Problem ED Midlevel Provider: Louise Montalvo ED Provider: Zach San Dx/Rx/DC Orders Clinical Impression: Otalgia, right ear Instructions: ED Earache Without Infection (Adult) Prescriptions: No Action Paxlovid 300 mg (150 mg x 2)-100 mg tablets,dose pack See Rx Instructions .ROUTE .COMPLEX Qty: 30 0RF Rx Instructions: take TWO 150 mg tablets of nirmatrelvir with ONE 100 mg tablet of ritonavir twice daily for 5 days [place] Referrals: Artemio Regalado MD [Med Staff - Active Staff] - 3-5 Days if not improving [place] [Primary Care Provider] - Activity Restrictions/Additional Instructions: You can apply 4 drops to your ear 3 times a day for the next 2 days. You could also try warm compress to your ear. Follow-up with ENT if no resolution. Return for any worsening of symptoms. Disposition Disposition: Home, Self Care What to do if you have Problems For any increased pain, shortness of breath, bleeding, nausea or vomiting, chestpain, or any unexpected problems, contact your Primary Care Provider. Call [facility] ([phone]) or report to the closest Emergency Room. Call 911 if necessary. 10/21/232125 <Electronically signed by Zach San DO> Cosigner Signature (if applicable): 10/21/232103 <Electronically signed by Louise KEY> CC: [facility] ~ Signed [facility] Work Phone: 1(319) 308-688506-06-2023 Hospital Discharge instructions Patient Education 03/18/2023 14:04:03 Back and [...] spine cause the pain. it is usually causedby an injury, whether known or not, to [...] your side with your knees bent up towardsyour chest and a pillow between your knees. [...] not use a heating pad at bedtime. Sleepingwith a heating pad can lead to skin [...] are taking other medicines. You may use ikrr-asp-jtdwzcy medicine to control pain, unless another pain medicine was prescribed.If you have chronic conditions like diabetes, liver or kidney disease, stomach ulcers, gastrointestinal bleeding, or are taking blood thinner medicines. Be careful if you are given pain medicines, narcotics, or medicine for muscle spasm. They can causedrowsiness, and can affect your coordination, reflexes, and judgment. Do not drive or operate heavymachinery. Follow-up care Follow up with your healthcare [...] or as directed by your healthcare provider [id number] [employer]. [address] [place] [address]. All rights reserved. This information is not intended as a substitute for professional medical care. Always follow yourhealthcare professional's instructions. 03/18/2023 14:04:02 Back Care Tips [...] strengthening both the back muscles and the abdominalmuscles will provide better support for your spine. Swimming and brisk walking are good overall exercises to improve your fitness level. Practice safe lifting methods (below). Practice good posture when sitting, standing and walking. Avoid prolonged sitting. This puts more stress on the lower back than standing or walking. Wear quality shoes with sufficient arch support. Foot and ankle alignment can affect back symptoms.Women should avoid wearing high heels. Therapeutic massage [...] that bend your neck to one side. Puta pillow between your legs to further relax your lower back. If you sleep on your back, put pillowsunder your knees to support your legs in [...] be reviewed by a radiologist. You will benotified of any new findings that may affect [...] or legs Numbness in the groin area [id number] [employer]. [address] [place] [address]. All rights reserved. This information is not intended as a substitute for professional medical care. Always follow yourhealthcare professional's instructions. Follow Up Care 03/18/2023 13:36:33 With:Call Physician Referral Address:Unknown When:2-4 days [facility] 06-06-2023 Note Discharge Instructions Thank you for allowing [facility] to assist you with your healthcare needs. The following is importantdischarge information regarding your hospital visit. Diagnosis from [...] start having worsening back pain or shoulder pain.Please return to the emergency department if you [...] and or supplements as they may interact withyour home medications. What How Much When Instructions [...] retail pharmacies. Medication Leaflets cyclobenzaprine (aamir garnett) Osmel, Ariana Pac with Cyclobenzaprine, Fexmid What is the [...] by blocking nerve impulses (or pain sensations) thatare sent to your brain. Cyclobenzaprine is used [...] in the past 14 days. A dangerous druginteraction could occur. MAO inhibitors include isocarboxazid, linezolid, [...] may report side effects to FDA at [phone]-[phone]. What other drugs will affect cyclobenzaprine? Using cyclobenzaprine with other drugs that make you drowsy can worsen this effect. Ask your doctorbefore using opioid medication, a sleeping pill, a [...] drugs may affect cyclobenzaprine, including prescription and mhjg-bia-ilgibzt medicines, vitamins, and herbal products. Not all [...] to ensure that the information provided by [employer]. ('[employer]') is accurate, up-to-date, and complete, but no guarantee is made to that effect. Drug information contained herein may be time sensitive. [employer] information has been compiled for use by healthcare practitioners and consumers in the [place] and therefore [employer] does not warrant that uses outside of the [place] are appropriate, unless specifically indicated otherwise. [employer] drug information does not endorse drugs, diagnose patients or recommend therapy. [employer] drug information isan informational resource designed to assist licensed healthcare practitioners in caring for their p atients and/or to serve consumers viewing this service as a supplement to, and not a substitute for, the expertise, skill, knowledge and judgment of healthcare practitioners. The absence of a warningfor a given drug or drug combination in no way should be construed to indicate that the drug or drug combination is safe, effective or appropriate for any given patient. [employer] does not assume any responsibility for any aspect of healthcare administered with the aid of information [employer] provides. The information contained herein is not intended to cover all possible uses, directions, precautions, warnings, drug interactions, allergic reactions, or adverse effects. If you have questions about the drugs you are taking, check with your doctor, nurse or pharmacist. Copyright 5817-2425 [employer]. Version: 5.01. Revision Date: 07/08/2018. Education Materials [...] spine cause the pain. it is usually causedby an injury, whether known or not, to [...] your side with your knees bent up towardsyour chest and a pillow between your knees. [...] not use a heating pad at bedtime. Sleepingwith a heating pad can lead to skin [...] are taking other medicines. You may use qihq-liq-ekbnpnw medicine to control pain, unless another pain medicine was prescribed.If you have chronic conditions like diabetes, liver or kidney disease, stomach ulcers, gastrointestinal bleeding, or are taking blood thinner medicines. Be careful if you are given pain medicines, narcotics, or medicine for muscle spasm. They can causedrowsiness, and can affect your coordination, reflexes, and judgment. Do not drive or operate heavyBioExx Specialty Proteinsy. Follow-up care Follow up with your healthcare [...] or as directed by your healthcare provider 6212-2661 [employer]. [address] [place], [place] [id number]. All rights reserved. This information is not intended as a substitute for professional medical care. Always follow yourhealthcare professional's instructions. Back Care Tips Caring for [...] strengthening both the back muscles and the abdominalmuscles will provide better support for your spine. Swimming and brisk walking are good overall exercises to improve your fitness level. Practice safe lifting methods (below). Practice good posture when sitting, standing and walking. Avoid prolonged sitting. This puts more stress on the lower back than standing or walking. Wear quality shoes with sufficient arch support. Foot and ankle alignment can affect back symptoms.Women should avoid wearing high heels. Therapeutic massage [...] that bend your neck to one side. Puta pillow between your legs to further relax your lower back. If you sleep on your back, put pillowsunder your knees to support your legs in [...] be reviewed by a radiologist. You will benotified of any new findings that may affect [...] or legs Numbness in the groin area [phone] [employer]. [address] [place], [place] [address]. All rights reserved. This information is not intended as a substitute for professional medical care. Always follow yourhealthcare professional's instructions. Additional Information VACCINATE! IT SAVES LIVES! Members of the community who have not yet received the COVID-19 vaccine and would like to receive it can visit one of [facility] vaccine clinics. There are many vaccine clinic locations within the [facility]. For locations and available times, please visit www.gettheshot.coronavirus.[place].gov/. It is important to note that some COVID mobile vaccine clinics are held outdoors and may be canceled in rainy or stormy conditions. To learn more about pediatric vaccinations (ages 5-11), we invite you to visit the [facility] webpage. https://www.[facility].org/pages/6341-Kokga-Loikptgyujg-Bdhadgqqke-Tdcwk-Dtt stions.htmlTo learn more about the COVID-19 vaccine, we invite you to visit the CDC website for a list of frequently asked questions. https://www.cdc.gov/coronavirus/2019-ncov/vaccines/faq.html [facility] Patient Portal Access Instructions: Stay connected with your healthcare team and access your personal medical information anytime with the [facility] Patient Portal. If you would like a full copy of your medical records please contact the [facility] Medical Records Department Friday through Friday between 8a.m. and 4:30p.m. Please follow the directions below to access the portal: 1.Access the email account you provided upon registration to the [facility].2.Look for an invitation email from [facility].3.Open the email and access the invitation link: Accept Invitation to [facility].Fill in the required finch to create your account. Sign into www.Over 40 Females with your username and password that you [...] you will allow to register on the [facility] Patient Portal for access to your information. You can also access the [facility] Patient Portal on the [employer] Simply click on Health Records under HealthData and then click on the [employer] logo. HOW TO SAFELY DISPOSE OF PRESCRIPTION MEDICATIONS Please use one of the following methods to safely dispose of your unused medications. 1.Use a drug disposal kit: the drug disposal pouch allows you to safely discard your old and unuseddrugs. Ask your nurse to give you one when you are discharged.2.Visit a local take-back location: Many local pharmacies and police departments have programs that collect old and unwanted prescriptiondrugs. Call your local pharmacy or go to http://bit.ly/2G4Tr8d to find one close to you.3.Make use of household items: Use cat litter or old coffee grounds to dispose medications if other options arenot available. Mix your drugs with these household products, seal them in an airtight container andthrow it into the garbage. Call [facility]: [phone] to be sure your drugs can be [...] drowsiness, such as benzodiazepines, also known as benzos,including diazepam and alprazolam, muscle relaxants or sleep aids. Never sell or share prescriptionopioids. This is illegal. Store opioids in a [...] been reviewed and explained to me and IADEEL MICHAEL Ounderstand my current condition and have read and understand these discharge instructions. I have received a written copy of the plan/instructions. If I have questions, I am aware that I should contact my doctor. 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: Date/Time: Relationship to Patient: Witness Name/Signature: Date/Time: [facility] summary Author Avinash Olmos [facility] June 20, 2023 12:23am Note Date/Time June 20, 2023 12:22am [facility] Medical Records Department [address] [place] [address] Emergency Department Summary 06/20/23 MR#: [id number] Acct: [id number] Name: MANDA DENIS Rep #:[id number] : 1985 38 From: Avinash Olmos MD PCP: NOT,DEFINED Status:PRE ER Location: ED HPI HPI - URI History of Present Illness Chief Complaint: Cold Sx Informant: patient Associated Symptoms Associated Symptoms: Positive for Nasal Congestion, Headache, Nausea, Diarrhea and Nonproductive cough Narrative Narrative: 3 days is of fevers, chills, malaise, myalgias, headache, congestion, cough, with a positive COVID test at home. No charles dyspnea. Never been vaccinated, first time he has had COVID that he knows of. Lives at home with family. Healthy otherwise. Takes no prescription medications. ROS ROS ED Constitutional Constitutional ED: Reports body ache(s), chills, fatigue, fever(s), headache(s) and malaise Eyes Eyes: Denies change in vision or diplopia ENT ENT ED: Denies rhinorrhea or sore throat Cardiovascular Cardiovascular: Denies chest pain or palpitations Respiratory/Chest Respiratory/Chest: Reports cough; Denies dyspnea or dyspnea on exertion Gastrointestinal Gastrointestinal: Reports diarrhea and nausea; Denies abdominal pain or vomiting Genitourinary Genitourinary ED: Denies dysuria or hematuria Musculoskeletal Musculoskeletal: Denies back pain or neck pain Integumentary Denies abscess or rash Neurologic Neurologic: Reports headache(s); Denies paresthesias or weakness Psychiatric Psychiatric: Denies anxiety or suicidal thoughts [facility] Medical History Chronic neck and back pain Fatigue Knee pain Limb weakness Lumbar strain Right shoulder strain Shortness of breath Shoulder pain Strain of right trapezius muscle Home Medications nirmatrelvir 300 mg (150 mg x2)-ritonavir 100 mg tablet,dose pack (Paxlovid) SeeRx Instructions PO .COMPLEX #30 tabs 06/20/23 [Rx Last Taken Unknown] Allergy/AdvReac Type Severity Reaction Status Date / Time Penicillins Allergy Mild Swelling Verified 06/19/23 23:08 Surgical History H/O knee surgery Social History Smoking Status: Current every day smoker tobacco type: cigarettes alcohol intake: never EXAM Physical Exam Const Vital Signs: 06/19/23 23:05 06/19/23 23:27 Temperature 98.8 F Temperature Source Temporal Pulse Rate 99 Respiratory Rate 16 Respiratory Effort Short of Breath Respiratory Pattern Normal Blood Pressure 156/90 H Blood Pressure Mean 112 Pulse Ox 99 Oxygen Delivery Method Room Air Positive well nourished, well developed and obese Constitutional Narrative: Well-appearing, no distress General Appearance ED: well developed and NAD Nutritional Appearance: obese HEENT Reports moist mucous membranes normocephalic and atraumatic Eyes PERRL and EOMs intact bilaterally Neck full ROM and supple Resp normal respiratory effort and clear to auscultation bilaterally Cardio regular rate, regular rhythm and no murmurs Rate: Negative for tachycardic GI non-tender and non-distended Auscultation: normoactive bowel sounds Palpation: soft Back/Spine no CVA tenderness General Back: other FROM Extremity normal to inspection and no calf tenderness General Extremety ED: Negative for edema, pulses abnormal or tenderness General Extremity: Negative for edema or pulses abnormal Neuro oriented x3, CN's II-XII intact bilaterally and no sensory deficits noted Sensorium / Orientation: awake and alert Motor Exam: strength 5/5 throughout Skin no rashes or lesions noted and no wounds MDM MDM MDM Narrative Medical decision making narrative: Unvaccinated obese patient, qualifies for antivirals due to the latter. He is amenable to this. Pulse ox and other vital signs are unremarkable at this time. Discharge Plan Triage Chief Complaint: Cold Sx ED Provider: Avinash Olmos Dx/Rx/DC Orders Clinical Impression: COVID-19 Instructions: Coronavirus Disease 2019 (COVID-19): Caring for Yourself or Others Prescriptions: New Paxlovid 300 mg (150 mg x 2)-100 mg tablets,dose pack See Rx Instructions .ROUTE .COMPLEX Qty: 30 0RF Rx Instructions: take TWO 150 mg tablets of nirmatrelvir with ONE 100 mg tablet of ritonavir twice daily for 5 days Primary Care Provider: NOT,DEFINED Referrals: Doctor,Your [Non-Staff] - As Needed Activity Restrictions/Additional Instructions: Try to get a home portable pulse oximeter and closely watch your oxygen levels periodically. If you stay below 90% for more than a minute or so, and/or you are feeling like your breathing is getting worse, return to the emergency department for further evaluation. Currently, CDC recommendations state that you should stay home through day 5 of symptoms, then as long as symptoms are improving, if you need to go to work or somewhere else you may for days 6-10 as long as you are wearing a mask the entire time. If you are feeling better after day 10 you may resume life is normal. Disposition Disposition: Home, Self Care What to do if you have Problems For any increased pain, shortness of breath, bleeding, nausea or vomiting, chestpain, or any unexpected problems, contact your Primary Care Provider. Call [facility] ([phone]) or report to the closest Emergency Room. Call 911 if necessary. 06/20/23 0023 <Electronically signed by Avinash Olmos MD> Piero Signature (if applicable): CC: DEFINED NOT ~ Signed [facility] Work Phone: Evaluation + Plan note No data available for this section [facility] Evaluation note* Diagnosis Onset Date Resolution Status Lumbar strain acute Right shoulder strain acute Strain of right trapezius muscle acute [facility] Work Phone: Evaluation noteNo assessment information available [facility] Work Phone: Hospital Discharge instructions Additional Instructions Try to get a home portable pulse oximeter and closely watch your oxygen levels periodically. If you stay below 90% for more than a minute or so, and/or you are feeling like your breathing is getting worse, return to the emergency department for further evaluation. Currently, CDC recommendations state that you should stay home through day 5 of symptoms, then as long as symptoms are improving, if you need to go to work or somewhere else you may for days 6-10 as long as you are wearing a mask the entire time. If you are feeling better after day 10 you may resume life is normal.[facility] Work Phone: Hospital Discharge instructions Additional Instructions You can apply 4 drops to your ear 3 times a day for the next 2 days. You could also try warm compress to your ear. Follow-up with ENT if no resolution. Return for any worsening of symptoms.[facility] Work Phone: Hospital Discharge instructions Additional Instructions Follow-up with dentist.[facility] Work Phone: Reason for referral (narrative)No reason for referral information availableWooDiley [facility] Work Phone: Summary Purpose Family History No Family History Records FoundNo Family History Records Found Advance Directives No Advanced Directives Records Found Advance Directive Response Recorded Date/ Time Name of Medical Power of Outside Sales Professional MONA SAUCEDA- June 19, 2023 11:27pm Living Will Yes June 19 11:27pm Power of Outside Sales Professional Yes June 19, 2023 11:27pm Advance Directive Response Recorded Date/ Time Living Will No October 21 8:59pm Power of Outside Sales Professional No October 21 8:59pm Advance Directive Response Recorded Date/ Time Living Will No November 22 6:10pm Power of Outside Sales Professional No November 22, 2023 6:10pm Advance Directive Response Recorded Date/ Time Name of Medical Power of Outside Sales Professional florecita nair iala January 15, 2024 9:24pm Living Will Yes January 15, 2024 9:24pm Power of Outside Sales Professional Yes January 14 9:24pm Advance Directive Response Recorded Date/ Time Living Will Yes January 22, 2025 1:15pm Do you have a Healthcare Power of Outside Sales Professional? No January 22, 2025 1:15pm Advance Directive Response Recorded Date/ Time Do you have a Healthcare Power of Outside Sales Professional? No February 15, 2025 5:47pm Living Will Yes January 22, 2025 1:15pm Do you have a Healthcare Power of Outside Sales Professional? No January 22, 2025 1:15pm Chief Complaint and Reason for Visit Chief Complaint BACK/RIGHT SHOULDER/ NECK PAIN/OBWC /SPEED NORTH COUGH Reason for Visit Lumbar strain Right shoulder strain Strain of right trapezius muscle Chief Complaint RIGHT EAR PAIN Chief Complaint RIGHT EAR PAIN DENTAL Chief Complaint RIGHT EAR PAIN DENTAL R KNEE PAIN Chief Complaint Admit Date DENTAL November 07, 2024 2 :03pm GENERAL January 22, 2025 12: 09pm Chief Complaint Admit Date DENTAL November 07, 2024 2 :03pm GENERAL January 22, 2025 12: 09pm edema February 15, 2025 5:22pm Additional Source Comments Patient Care team informatio n (unrecognized section and content) Team Status: Active Member Role Status Dates No Primary Care Physician Primary Care Provider Active Team Status: Inactive Member Role Status Dates Robbie Webster PA, PA Attending Provider Active Team Status: Inactive Member Role Status Dates Dr. Avinash Olmos MD Emergency Provider Active No Primary [facility] [place] Physician Primary Care Provider Active Team Status: Active Member Role Status Dates [facility] Primary Care Provider Active Team Status: Inactive Member Role Status Dates [facility] Primary Care Provider Active Dr. Zach San DO Emergency Provider Active Team Status: Inactive Member Role Status Dates [facility] Primary Care Provider Active Dr. Dariel Martniez MD Emergency Provider Active Team Status: Inactive Member Role Status Dates [facility] Primary Care Provider Active Dr. Zach aSn DO Attending Provider, Emergency P sean Active Team Status: Inactive Member Role Status Dates [facility] Primary Care Provider Active Dr. Dariel Martinez MD Attending Provider, Emergency Provider Active Team Status: Inactive Member Role Status Dates [facility] Primary Care Provider Active Dr. Avinash Olmos MD Emergency Provider Active Team Status: Inactive Member Role Status Dates [facility] Primary Care Provider Active Start: November 07, 2024 End: November 07, 2024 Ed Physician Provider Attending Provider Active Start: November 07, 2024 End: November 07, 2024 Ed Physician Provider Emergency Provider Active Start: November 07, 2024 End: November 07, 2024 Team Status: Inactive Member Role Status Dates [facility] Primary Care Provider Active Start: January 22, 2025 End: January 22, 2025 Dr. Zach San DO Emergency Provider Active Start: January 22, 2025 End: January 22, 2025 Team Status: Inactive Member Role Status Dates [facility] Primary Care Provider Active Start: January 22, 2025 End: January 22, 2025 Dr. Zach San DO Attending Provider Active Start: January 22, 2025 End: January 22, 2025 Dr. Zach San DO Emergency Provider Active Start: January 22, 2025 End: January 22, 2025 Team Status: Inactive Member Role Status Dates [facility] Primary Care Provider Active Start: February 15, 2025 End: February 15, 2025 Dr. Jony Francis MD Emergency Provider Active S tart: February 15, 2025 End: February 15, 2025 (unrecognized sect ion and content) No Status Records FoundNo Status Records Found INFORMATION SOURCE (unrecogn ized section and content) DATE CREATED AUTHOR 04/03/2023 [facility] ([place]) DATE CREATED AUTHOR AUTHOR'S ORGANIZ ATION 02/18/2025 [facility] Goals (unrecognized section and content) Goals may be documented in a n alternate section FOR RECORDS PERTAINING TO PATIENTS WHO ARE [...] BE BASED ON THE PRIMARY CLINICAL RECORDS. [employer] provides no warranty or guarantee of the accuracy or completeness of information in this document.
--- NOTE | 2025-05-20 20:00 | RAD_ITS ---
PROCEDURE: KNEE 4 OR MORE VIEWS 05/20/2025 REASON FOR EXAM: PAIN, FALL TECHNIQUE: KNEE 4 OR MORE VIEWS Laterality: Right COMPARISON: 01/15/2024 FINDINGS: Lateral soft tissue swelling. No fracture, dislocation, or joint effusion. Patellar enthesophytes. RAD/Knee 4 or More Views IMPRESSION: Lateral soft tissue swelling. Reading Location: [place] [address]
--- NOTE | 2025-05-20 20:02 | EX.ED.DYSGE1 ---
HPI History of Present Illness Chief Complaint: Lower Extremity Injury Narrative Narrative: Chief complaint and HPI: Right knee pain. 40-year-old male with past medical history of HTN presents for evaluation of right knee pain. Patient states that several days ago he fell onto his right knee. States that his knee twisted as well. States that he was told by his work that he needs a doctor's note for light duty which is why he presents. He denies any numbness or tingling. Review of systems: See HPI Medications: As listed on the chart Allergies: As listed on the chart PFSH: Per chart Vital signs: As listed on the chart. Reviewed. Physical exam: Gen: A&O x3, NAD Head: Normocephalic, atraumatic Eyes: No sclera icterus, conjunctiva clear ENT: Moist mucous membranes Neck: Full range of motion CV: Regular rate Resp: Nonlabored labored respiration Musc: Full ROM of all the extremities including the right lower extremity, full range of motion of the right knee without any knee instability, tender to palpation mostly to the patella of the knee, no deformity, compartments soft, DP/PT pulses +2 bilaterally, good capillary refill Skin: Warm, dry Neuro: Alert, oriented, grossly intact, sensation intact Psych: Cooperative, appropriate mood and affect [facility] Medical History Depression Osteoporosis Smoker CPAP (continuous positive airway pressure) dependence Sleep apnea Asthma Chest pain Migraines Right shoulder strain Strain of right trapezius muscle Lumbar strain Chronic neck and back pain Limb weakness Knee pain Fatigue Shoulder pain Shortness of breath Home Medications ?Medication ?Instructions ?Recorded ?Last Taken ?Type acetaminophen 325 mg tablet 650 mg PO Q6H 01/15/24 Unknown History (Tylenol) cholecalciferol (vitamin D3) 25 75 mcg PO DAILY 01/15/24 Unknown History mcg (1,000 unit) capsule tizanidine 4 mg capsule 4 mg PO Q6H PRN back spasms 01/15/24 Unknown History prednisone 20 mg tablet 20 mg PO BID #10 tabs 05/20/24 Unknown Rx cyclobenzaprine 10 mg tablet 10 mg PO TID PRN Muscle Spasm #15 07/27/24 Unknown Rx TABLETS ibuprofen 600 mg tablet 600 mg PO Q6H PRN PRN pain #20 07/27/24 Unknown Rx TABLETS oxycodone-acetaminophen 5 mg-325 1 tab PO Q6H PRN pain 3 days #12 07/27/24 Unknown Rx mg tablet (Percocet) tabs ondansetron 4 mg disintegrating 4 mg PO Q6H PRN PRN Nausea #15 tabs 01/22/25 Unknown Rx tablet hydrochlorothiazide 12.5 mg tablet 12.5 mg PO DAILY 30 days #30 tabs 02/15/25 Unknown Rx Allergy/AdvReac Type Severity Reaction Status Date / Time Penicillins Allergy Mild Swelling Verified 05/20/25 19:31 Surgical History Previous back surgery History of embolic filter insertion H/O knee surgery Social History Smoking Status: Current every day smoker tobacco type: cigarettes alcohol intake: never EXAM Physical Exam Const Vital Signs: 05/20/25 19:29 Temperature 98.6 F Temperature Source Temporal Pulse Rate 95 Respiratory Rate 18 Blood Pressure 161/103 H Blood Pressure Mean 122 Pulse Ox 99 Oxygen Delivery Method Room Air MDM MDM MDM Narrative Medical decision making narrative: 40-year-old male with past medical history of HTN presents for evaluation of right knee pain. Patient states that several days ago he fell onto his right knee. States that his knee twisted as well. States that he was told by his work that he needs a doctor's note for light duty which is why he presents. He denies any numbness or tingling. Physical exam unremarkable except tenderness to palpation of the right patella. Differential diagnosis includes but is not limited to knee contusion, knee sprain, fracture. X-ray of the knee obtained. X-ray of the knee was personally viewed interpreted by me, ED physician. No fracture or dislocation. Per radiology patellar enthesophytes with lateral soft tissue swelling. Suspect patient's pain is secondary to contusion versus sprain. Tylenol and Motrin as needed for pain. Follow-up with PCP. He confirmed understanding plan. Patient stable to discharge home. Patient requesting to be put on light duty. Patient given directions for light duty for the next couple days. Impression: 1. Right knee pain, sprain versus contusion Radiography Diagnostic Testing: Clinical Impression(s) from Imaging Studies Knee X-Ray 05/20/25 20:00 IMPRESSION: Lateral soft tissue swelling. Reading Location: [place] [address] Discharge Plan Triage Chief Complaint: Lower Extremity Injury ED Provider: Wes Altman Dx/Rx/DC Orders Prescriptions: No Action tizanidine 4 mg capsule 4 mg PO Q6H PRN (Reason: back spasms) Rx Instructions: do not exceed 3 doses per 24 hrs cholecalciferol (vitamin D3) 25 mcg (1,000 unit) capsule 75 mcg PO DAILY acetaminophen [Tylenol] 325 mg tablet 650 mg PO Q6H prednisone 20 mg tablet 20 mg PO BID Qty: 10 0RF cyclobenzaprine 10 mg tablet 10 mg PO TID PRN (Reason: Muscle Spasm) Qty: 15 0RF ibuprofen 600 mg tablet 600 mg PO Q6H PRN PRN (Reason: pain) Qty: 20 0RF oxycodone-acetaminophen [Percocet] 5-325 mg tablet 1 tab PO Q6H PRN (Reason: pain) 3 Days Qty: 12 0RF hydrochlorothiazide 12.5 mg tablet 12.5 mg PO DAILY 30 Days Qty: 30 0RF ondansetron 4 mg tablet,disintegrating 4 mg PO Q6H PRN PRN (Reason: Nausea) Qty: 15 0RF [facility] Care [facility] [facility] [Primary Care Provider] - Print Language: Micronesian
[2025-05-20 22:06] VITALS: BP 162/94; PULSE 76; RESP 18; TEMP 37.3; O2SAT 100
== END 2025-05-20 22:07 | disposition home or self-care (01) ==
PROVIDERS: Emergency Provider Surgery; Visit Provider Surgery
DX: M25.561 Pain in right knee (principal); G47.30 Sleep apnea, unspecified; F17.210 Nicotine dependence, cigarettes, uncomplicated
CPT/HCPCS: 73564; 99282